=== PATIENT | female | born 1945 | race Caucasian/White ===

== ENCOUNTER 2022-03-25 12:43 | Outpatient (RCR) | payer MEDICARE, OTHER, SELFPAY | END 2022-03-27 12:22 | disposition home or self-care (01) | LOC: HO.WCC 12:43 | PROVIDERS: PCP Internal Medicine; Visit Provider Physician Assistant | DX: S81.812D Laceration without foreign body, left lower leg, subsequent encounter (principal); R60.9 Edema, unspecified | CPT/HCPCS: 99213 ==

== ENCOUNTER 2025-02-28 09:27 | Outpatient (AMB) | payer MEDICARE, OTHER, SELFPAY ==
--- OUTSIDE RECORDS SUMMARY | 2025-02-28 10:12 | XMS_ITS | Encounter Summary ---
Author Organization [facility] Address [address] [place] [address] Phone Care Team Providers Care Hr Coordinator Name Role Phone Nir Neil MD Unavailable [email or web address] Maritza Gonzalez MD Unavailable [phone] Hollie Hood SHAGGER Unavailable [phone] Emerita Hsu MD Unavailable Azalea Degroot MD Primary Care Provider [phone] Encounter Details Date Type Department Care Team (Late st Contact Info) Description 02/05/2021 Ancillary Orders Virtual Department [address] [place] [address] Azalea Degroot MD [address] [place], [place] [id number] Breast screening Social History Tobacco Use Types Packs/Day Years Used Date Smoking Tobacco: Never Smokeless Tobacco: Never Alcohol Use Standard Drinks/Week Comments Yes 1 (1 standard drink = 0.6 oz pur e alcohol) Comments No Sex and Gender Information Value Date Recorded Sex Assigned at Female 03/30/2018 9:37 AM EDT Legal Sex Female 10:07 PM EDT Gender Identity Female 03/30/2018 9:37 AM EDT Sexual Orientation Straight 03/30/2018 9: 37 AM EDT 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 In the absence of a worrisome palpable abnormality, annual screening mammography is recommended. BI-RADS CATEGORY: 1 - Negative. DENSITY: There are scattered fibroglandular densities. Narrative 04/30/2021 10:32 AM EDT COMPARISON: 03/16/2015 through 04/24/2020 Bilateral 3-D tomosynthesis with 2-D reconstructions in the CC and MLO projection. Computer-aided detection system was utilized. No new mass, asymmetry, architectural distortion or suspicious calcifications have become apparent on either side. Procedure Note Hakeem Thompson MD - 04/30/2021 COMPARISON: 03/16/2015 through 04/24/2020 Bilateral 3-D tomosynthesis with 2-D reconstructions in the CC and MLOprojection. Computer-aided detection system was utilized. No new mass, asymmetry, architectural distortion or suspiciouscalcifications have become apparent on either side. IMPRESSION: No findings suspicious for malignancy are identified. In the absence of aworrisome palpable abnormality, annual screening mammography isrecommended. BI-RADS CATEGORY: 1 - Negative. DENSITY: There are scattered fibroglandular densities. Azalea Degroot MD IMG MG EXAMS Final Res ult documented in this encounter Visit Diagnoses Diagnosis Breast screening Breast screening, unspecified Breast screening Breast screening, unspecified documented in this encounter Care Teams Hr Coordinator Relationship Specialty Start Date End Date Azalea Degroot MD [address] [place] [address] PCP - General Internal Medicine 03/04/18 Nir Neil MD [email or web address] Historical LMR Provider 04/22/17 Maritza Gonzalez MD [address] [facility], 2nd [place] [address] [email or web address] Historical LMR Provider 04/22/17 Hollie Hood NP [address] [place] [address] Historical LMR Provider 04/22/17 2 Emerita Hsu MD [address] [place] [address] [place] [phone] [email or web address] Historical LMR Provider 04/22/17 2 documented as of this encounter Additional Source Comments The information contained in this document represents components of the legal health record. It is not the complete legal health record.[facility]
== END 2025-02-28 11:53 | disposition home or self-care (01) ==
LOC: HO.HMGAL 09:27
PROVIDERS: PCP Internal Medicine; Visit Provider Registered Nurse Emergency
DX: J30.89 Other allergic rhinitis (principal)
CPT/HCPCS: 95117; 95165

== ENCOUNTER 2025-03-09 10:29 | Outpatient (AMB) | payer MEDICARE, OTHER, SELFPAY ==
--- OUTSIDE RECORDS SUMMARY | 2025-03-09 12:16 | XMS_ITS | Encounter Summary ---
Author Organization [facility] Address [address] [place] [address] [place] [address] Phone Care Team Providers Care Patent Engineer Name Role Phone Nir Neil MD Unavailable [email or web address] Azalea Degroot MD Primary Care Provider [phone] Encounter Details Date Type Department Care Team (Late st Contact Info) Description 08/23/2024 Procedure Pass [address] [place] [address] Social History Tobacco Use Types Packs/Day Years Used Date Smoking Tobacco: Never Passive Smoke Exposure: Never Smokeless Tobacco: Never Alcohol Use Standard Drinks/Week Comments Yes 1 (1 standard drink = 0.6 oz pur e alcohol) occasionally 1-2x/wk Education Answer Date Recorded Are you interested in more education? Not on murali e 11/01/2022 Are you concerned about learning? Not on file 11/01/2022 No 11/01/2022 No 11/01/2022 Digital Access Answer Date Recorded No 11/30/2022 No 11/30/2022 Reliable internet access at home? Not on file 11/30/2022 Device with a working camera? Not on file Intimate Partner Violence Answer Date R ecorded Are you denied basic needs s uch as food, clothing, or medical care? No 11/04/2023 In the past 12 months have y ou been in a relationship with a person who hurts, threatens, or tries to control you? No 11/04/2023 Are you denied basic needs s uch as food, clothing, or medical care? No 11/04/2023 In the past 12 months have y ou been in a relationship with a person who hurts, threatens, or tries to control you? No 11/04/2023 Comments No Sex and Gender Information Value [...] on file documented as of this encounter Visit Diagnoses Not on filedocumented in this encounter Care Teams Patent Engineer Relationship Specialty Start Date End Date Azalea Degroot MD [address] [place], [place] [id number] PCP - General Internal Medicine 03/04/18 Nri Neil MD [email or web address] Historical LMR Provider 04/22/17 documented as of this encounter Additional Source Comments The information contained in this document represents components of the legal health record. It is not the complete legal health record.[facility]
--- OUTSIDE RECORDS SUMMARY | 2025-03-09 12:16 | XMS_ITS | Encounter Summary ---
Author Organization [facility] Address [address] [place] [address] Phone Care Team Providers Care Inside Horticultural Specialty Grower Name Role Phone Nir Neil MD Unavailable [email or web address] Maritza Gonzalez MD Unavailable [phone] Hollie Hood STRATEGY INTERN Unavailable [phone] Emerita Hsu MD Unavailable Azalea Degroot MD Primary Care Provider [phone] Encounter Details Date Type Department Care Team (Latest Contact Info) Description 09/14/2019 Ancillary Orders [facility] [address] [place] [address] Mariam Stephen PA-C [address] [place] [address] Orthopedics & Sports Medicine, [facility] [address] [email or web address] Closed displaced supracondylar fracture of distal end of left femur with intracondylar extension, initial encounter Social History Tobacco Use Types Packs/Day Years [...] documented as of this encounter Results * XR KNEE 1-2 VIEWS (LEFT) (09/14/2019 9:41 AM EDT) Narrative SYSTEMGENERATED, DOCUMENTATION - 09/14/2019 9:42 AM EDT This image report has been auto-finalized and has not been read by a Radiologist. Interpretation has been included in the provider encounter note for this date of service. Mariam Stephen PA-C IMG XR LOWER EXTREMI TY Final Result documented in this encounter Visit Diagnoses Diagnosis Closed displaced supracondylar fracture of distal end of left femur with intracondylar extension, initial encounter Closed displaced supracondylar fracture of distal end of left femur with intracondylar extension, initial encounter documented in this encounter Care Teams Inside Horticultural Specialty Grower Relationship Specialty Start Date End Date Azalea Degroot MD [address] [place] [address] PCP - General Internal Medicine 03/04/18 Nir Neil MD [email or web address] Historical LMR Provider 04/22/17 Maritza Gonzalez MD [address] [place] [address], 2nd [place] [address] [email or web address] Historical LMR Provider 04/22/17 Hollie Hood NP 30 [place] [address] Historical LMR Provider 04/22/17 2 Emerita Hsu MD [address] [place] [address] [address] [place] [phone] [email or web address] Historical LMR Provider 04/22/17 2 documented as of this encounter Additional Source Comments The information contained in this document represents components of the legal health record. It is not the complete legal health record.[facility]
--- OUTSIDE RECORDS SUMMARY | 2025-03-09 12:16 | XMS_ITS | Encounter Summary ---
Author Organization [facility] Address [address] [place] [address] Phone Care Team Providers Care High Lead Yarder Name Role Phone Nir Neil MD Unavailable [email or web address] Maritza Gonzalez MD Unavailable [phone] Hollie Hood NP Unavailable [phone] Emerita Hsu MD Unavailable Emerita Hsu MD Primary Care Provider [phone] Azalea Degroot MD Primary Care Provider [phone] Encounter Details Date Type Department Care Team (Late st Contact Info) Description 10/17/2017 Ancillary Orders Virtual Department 30 [place] [address] Emerita Hsu MD [address] [facility] [address] [place] [phone] [email or web address] Breast screening Social History Tobacco Use Types Packs/Day Years Used Date Smoking Tobacco: Never Smokeless Tobacco: Never Alcohol Use Standard Drinks/Week Comments Yes 1 (1 standard drink = 0.6 oz pur e alcohol) 5 nights weekly Comments Unknown Sex and Gender Information Value Date Recorded Sex Assigned at Female 03/30/2018 9:37 AM EDT Legal Sex Female 10:07 PM EDT Gender Identity Female 03/30/2018 9:37 AM EDT Sexual Orientation Straight 03/30/2018 9: 37 AM EDT documented as of this encounter Plan of Treatment Not on file documented as of this encounter Results * BI MAMMOGRAM SCREENING WITH TOMOSYNTHESIS WITH CAD (BILATERAL) (04/16/2018 9:38 AM EDT) Anatomical Region Laterality Modality Breast Left, Breast Right, Breast Bilateral Bila teral Mammography 04/17/2018 2:39 PM EDT Impressions 04/17/2018 2:43 PM EDT No mammographic change indicative of malignancy. Routine screening is recommended. BI-RADS CATEGORY: 1 - Negative. DENSITY: There are scattered fibroglandular densities. POS - [id number] Narrative 04/17/2018 2:43 PM EDT FINDINGS: Bilateral full-field digital screening mammography is obtained and read in conjunction with computer-aided detection. 3-D tomosynthesis as well as 2-D C view imaging is also performed. Comparison includes the most recent exam from 04/15/2017 and as far back as 01/22/2012. Breasts are composed of scattered fibroglandular tissue. No new suspicious mass, suspicious microcalcifications, architectural distortion, focal skin thickening, or new asymmetry is detected. Procedure Note Danae Berkowitz MD - 04/17/2018 FINDINGS: Bilateral full-field digital screening mammography is obtained and read inconjunction with computer-aided detection. 3-D tomosynthesis as well as2-D C view imaging is also performed. Comparison includes the most recentexam from 04/15/2017 and as far back as 01/22/2012. Breasts are composed of scattered fibroglandular tissue. No newsuspicious mass, suspicious microcalcifications, architectural distortion,focal skin thickening, or new asymmetry is detected. IMPRESSION: No mammographic change indicative of malignancy. Routine screening isrecommended. BI-RADS CATEGORY: 1 - Negative. DENSITY: There are scattered fibroglandular densities. POS - [id number] Emerita Hsu MD IMG MG EXAMS Final Result documented in this encounter Visit Diagnoses Diagnosis Breast screening Breast screening, unspecified Breast screening Breast screening, unspecified documented in this encounter Care Teams High Lead Yarder Relationship Specialty Start Date End Date Emerita Hsu MD [address] [facility] [address] [phone] [email or web address] PCP - General Family Medicine 05/27/17 03/03/18 Azalea Degroot MD [address] [place] [address] PCP - General Internal Medicine 03/04/18 Nir Neil MD [email or web address] Historical LMR Provider 04/22/17 Maritza Gonzalez MD [address] [place] [address] [email or web address] Historical LMR Provider 04/22/17 Hollie Hood NP [address] [place] [address] Historical LMR Provider 04/22/17 2 Emerita Hsu MD [address] [place] [address] [address] [phone] [email or web address] Historical LMR Provider 04/22/17 2 documented as of this encounter Additional Source Comments The information contained in this document represents components of the legal health record. It is not the complete legal health record.[facility]
--- OUTSIDE RECORDS SUMMARY | 2025-03-09 12:16 | XMS_ITS | Encounter Summary ---
Author Organization [facility] Address [address] [place] [address] Phone Care Team Providers Care Health Plan Manager Name Role Phone Nir Neil MD Unavailable [email or web address] Azalea Degroot MD Primary Care Provider [phone] Encounter Details Date Type Department Care Team (Latest Contact Info) Description 08/06/2021 Ancillary Orders [address] [address] Gabrielle Preciado MD [address] [place] [address] Orthopedics & Sports Medicine, [place] [address] [email or web address] Osteoarthritis of right hip, unspecified osteoarthritis type Social History Tobacco Use Types Packs/Day Years [...] as of this encounter Plan of Treatment Pending Results Name Type Priority Associated Diagnoses Date /Time FL Guidance Needle Placement Non-Spine Imaging Routine Osteoarthritis of right hip, unspecified osteoarthritis type 08/07/2021 8:52 AM EST Scheduled Orders Name Type Priority Associated Diagnoses Orde r Schedule FL Guidance Needle Placement Non-Spine Imaging Routine Osteoarthritis of right hip, unspecified osteoarthritis type 1 Occurrences starting 08/06/2021 until 11/03/2021 documented as of this encounter Visit Diagnoses Diagnosis Osteoarthritis of right hip, unspecified osteoarthritis type documented in this encounter Care Teams Health Plan Manager Relationship Specialty Start Date End Date Azalea Degroot MD [address] [place] [address] PCP - General Internal Medicine 03/04/18 Nir Neil MD [email or web address] Historical LMR Provider 04/22/17 documented as of this encounter Additional Source Comments The information contained in this document represents components of the legal health record. It is not the complete legal health record.[facility]
--- OUTSIDE RECORDS SUMMARY | 2025-03-09 12:16 | XMS_ITS | Encounter Summary ---
Author Organization [facility] Address [address] [facility] [address] [place] [address] Phone Care Team Providers Care Tire Curer Name Role Phone Nir Neil MD Unavailable [email or web address] Azalea Degroot MD Primary Care Provider [phone] Encounter Details Date Type Department Care Team (Late st Contact Info) Description 10/02/2021 Procedure Pass [facility], [address] [address] Social History Tobacco Use Types Packs/Day Years [...] on filedocumented in this encounter Care Teams Tire Curer Relationship Specialty Start Date End Date Azalea Degroot MD [address] [place] [address] PCP - General Internal Medicine 03/04/18 Nir Neil MD [email or web address] Historical LMR Provider 04/22/17 documented as of this encounter Additional Source Comments The information contained in this document represents components of the legal health record. It is not the complete legal health record.[facility]
--- OUTSIDE RECORDS SUMMARY | 2025-03-09 12:16 | XMS_ITS | Encounter Summary ---
Author Organization [facility] Address [address] [facility] [address] [place] [address] Phone Care Team Providers Care Pantograph Engraver Name Role Phone Nir Neil MD Unavailable [email or web address] Maritza Gonzalez MD Unavailable [phone] Hollie Hood REPRODUCTION MACHINE LOADER Unavailable [phone] Emerita Hsu MD Unavailable Azalea Degroot MD Primary Care Provider [phone] Encounter Details Date Type Department Care Team (Late st Contact Info) Description 01/25/2019 Ancillary Orders Virtual Department 30 [place] [address] Azalea Degroot MD 46 [place], [place] [phone] Breast screening Social History Tobacco Use Types Packs/Day Years Used Date Smoking Tobacco: Never Smokeless Tobacco: Never Alcohol Use Standard Drinks/Week Comments Yes 1 (1 standard drink = 0.6 oz pur e alcohol) 5 nights weekly Comments No Sex and Gender Information Value [...] MAMMOGRAM SCREENING WITH TOMOSYNTHESIS WITH CAD (BILATERAL) (04/20/2019 10:38 AM EDT) Anatomical Region Laterality Modality Breast Left, Breast Right, Breast Bilateral Bila teral Mammography 04/20/2019 11:0 2 AM EDT Impressions 04/20/2019 11:05 AM EDT BILATERAL BREASTS: Negative, no evidence of malignancy. Normal interval follow- up is recommended in 12 months. Bi-RADS: BI-RADS CATEGORY: 1 - Negative. DENSITY: There are scattered fibroglandular densities. POS - [id number] Narrative 04/20/2019 11:05 AM EDT STUDY: Bilateral screening mammography with tomosynthesis and CAD TECHNIQUE: Bilateral full-field digital screening mammography is obtained and read in conjunction with computer-aided detection. Tomosynthesis as well as 2-D C view imaging were obtained. COMPARISON: Comparison made to multiple prior, most recent April 16, 2018, and most remote February 18, 2013. BREAST COMPOSITION: There are scattered areas of fibroglandular density BILATERAL BREASTS: No significant masses, calcifications or other abnormalities are seen. Procedure Note Teresa Chandra MD - 04/20/2019 STUDY: Bilateral screening mammography with tomosynthesis and CAD TECHNIQUE: Bilateral full-field digital screening mammography is obtainedand read in conjunction with computer-aided detection. Tomosynthesis aswell as 2-D C view imaging were obtained. COMPARISON: Comparison made to multiple prior, most recent April, and most remote February 18, 2013. BREAST COMPOSITION: There are scattered areas of fibroglandulardensity BILATERAL BREASTS: No significant masses, calcifications or otherabnormalities are seen. IMPRESSION: BILATERAL BREASTS: Negative, no evidence of malignancy. Normal intervalfollow-up is recommended in 12 months. Bi-RADS: BI-RADS CATEGORY: 1 - Negative. DENSITY: There are scattered fibroglandular densities. POS - [id number] Azalea Degroot MD IMG MG EXAMS Final Res ult documented in this encounter Visit Diagnoses Diagnosis Breast screening Breast screening, unspecified Breast screening Breast screening, unspecified documented in this encounter Care Teams Pantograph Engraver Relationship Specialty Start Date End Date Azalea Degroot MD 46 [place] [address] PCP - General Internal Medicine 03/04/18 Nir Neil MD [email or web address] Historical LMR Provider 04/22/17 Maritza Gonzalez MD [address] [address] [email or web address] Historical LMR Provider 04/22/17 Hollie Hood NP [address] [place] [address] Historical LMR Provider 04/22/17 2 Emerita Hsu MD [address] [place] [address] [phone] [email or web address] Historical LMR Provider 04/22/17 2 documented as of this encounter Additional Source Comments The information contained in this document represents components of the legal health record. It is not the complete legal health record.[facility]
--- OUTSIDE RECORDS SUMMARY | 2025-03-09 12:16 | XMS_ITS | Encounter Summary ---
Author Organization [facility] Address [address] [place] [address] [place] [address] Phone Care Team Providers Care Napper Runner Name Role Phone Nir Neil MD Unavailable [email or web address] Azalea Degroot MD Primary Care Provider [phone] Encounter Details Date Type Department Care Team (Late st Contact Info) Description 09/11/2023 Procedure Pass [facility], [facility] [address] [place] [address] Social History Tobacco Use Types Packs/Day Years [...] with a working camera? Not on file Comments No Sex and Gender Information Value [...] on filedocumented in this encounter Care Teams Napper Runner Relationship Specialty Start Date End Date Azalea Degroot MD [address] [place] [address] PCP - General Internal Medicine 03/04/18 Nir Neil MD [email or web address] Historical LMR Provider 04/22/17 documented as of this encounter Additional Source Comments The information contained in this document represents components of the legal health record. It is not the complete legal health record.[facility]
--- OUTSIDE RECORDS SUMMARY | 2025-03-09 12:16 | XMS_ITS | Encounter Summary ---
Author Organization [facility] Address [address] [place] [address] Phone Care Team Providers Care Senior Control Systems Engineer Name Role Phone Nir Neil MD Unavailable [email or web address] Maritza Gonzalez MD Unavailable [phone] Hollie Hood OIL EXPELLER Unavailable [phone] Emerita Hsu MD Unavailable Azalea Degroot MD Primary Care Provider [phone] Encounter Details Date Type Department Care Team (Late st Contact Info) Description 09/26/2020 Procedure Pass [facility], [address] [address] Social History Tobacco Use Types Packs/Day Years [...] on filedocumented in this encounter Care Teams Senior Control Systems Engineer Relationship Specialty Start Date End Date Azalea Degroot MD [address] [place] [address] PCP - General Internal Medicine 03/04/18 Nir Neil MD [email or web address] Historical LMR Provider 04/22/17 Maritza Gonzalez MD [address] [address] [email or web address] Historical LMR Provider 04/22/17 Hollie Hood NP 30 [place] [address] Historical LMR Provider 04/22/17 2 Emerita Hsu MD [address] [place] [address] [address] [email or web address] Historical LMR Provider 04/22/17 2 documented as of this encounter Additional Source Comments The information contained in this document represents components of the legal health record. It is not the complete legal health record.[facility]
--- OUTSIDE RECORDS SUMMARY | 2025-03-09 12:16 | XMS_ITS | Encounter Summary ---
Author Organization [facility] Address [address] [place] [address] Phone Care Team Providers Care Clinical Laboratory Aide Name Role Phone Nir Neil MD Unavailable [email or web address] Azalea Degroot MD Primary Care Provider [phone] Reason for Referral * MRI/CAT Scan - Closed Specialty Diagnoses / Procedures Referred By Princess calloway Referred To Contact Radiology Diagnoses Right hip pain Procedures MRI Hip (Right) Isabel Rico NP [address] [place] [address] Phone: tel: fax: mailto:[email or web address] Referral ID Status Reason Start Date Expiration Date Visits Re quested Visits Authorized [id number] Closed 10/02/2021 10/02/2022 1 1 Encounter Details Date Type Department Care Team (Latest Contact Info) Description 10/02/2021 Transcribe Orders Virtual Department [address] [place] [address] Isabel Rico NP [address] [place] [phone] [email or web address] Right hip pain (Primary Dx) Social History Tobacco Use Types Packs/Day Years [...] documented as of this encounter Results * MRI HIP WITHOUT CONTRAST (RIGHT) (10/17/2021 7:48 AM EDT) Anatomical Region Laterality Modality Hip Right Magnetic Resonan ce 10/17/2021 11:2 4 AM EDT Impressions 10/17/2021 12:06 PM EDT 1.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 Relatively large area of heterogeneous bone marrow edema of the proximal right femur could be secondary to a combination of avascular necrosis and nondisplaced fractures. 2.Moderate right joint effusion filled with heterogeneous content could be posttraumatic. 3.Areas of fluid collections within the iliopsoas muscle is most likely posttraumatic. 4.Moderate size area of muscular edema as above, most likely posttraumatic. 5.Moderate degenerative changes of the right hip joint. Narrative 10/17/2021 12:06 PM EDT MRI HIP WITHOUT CONTRAST (RIGHT) TECHNIQUE: Multi-sequence, multi-planar MRI of the hip without intravenous contrast. COMPARISON: Radiographs of the right hip on June 21, 2021 FINDINGS: ENTIRE PELVIS SCREENING: No fracture, sacroiliitis, or focal bone lesion. No intrapelvic soft tissue abnormality. DEDICATED HIP: Bone: There are findings suggestive of avascular necrosis of the superior aspect of the femoral head surrounded by a relatively large area of heterogeneous bone marrow edema that extends towards the neck and intertrochanteric femur. Possible linear T1 hypointensities in the femoral neck could suggest nondisplaced fracture lines. Joint: Marked joint space narrowing with diffuse cartilage thinning. Moderate joint effusion filled with heterogeneous content. Tendons: There is heterogeneous septated fluid collections extending from the myotendinous junction of the iliac and psoas muscles and continuing along the tendon inferiorly (3:15-7). Difficult to measure the entire length, but about 6 cm long.Moderate size area of edema involving the iliac, psoas, adductor, gluteus minimus and vastus lateralis muscles. The tendons of the pelvic muscles appear intact, but tendinitis not excluded. Hamstring tendons are intact. Soft Tissues: No bursal collection. Procedure Note Teresa Chandra MD - 10/17/2021 MRI HIP WITHOUT CONTRAST (RIGHT) TECHNIQUE: Multi-sequence, multi-planar MRI of the hip without intravenouscontrast. COMPARISON: Radiographs of the right hip on June 21, 2021 FINDINGS: ENTIRE PELVIS SCREENING: No fracture, sacroiliitis, or focal bone lesion.No intrapelvic soft tissue abnormality. DEDICATED HIP: Bone: There are findings suggestive of avascular necrosis of the superioraspect of the femoral head surrounded by a relatively large area ofheterogeneous bone marrow edema that extends towards the neck andintertrochanteric femur. Possible linear T1 hypointensities in the femoralneck could suggest nondisplaced fracture lines. Joint: Marked joint space narrowing with diffuse cartilage thinning.Moderate joint effusion filled with heterogeneous content. Tendons: There is heterogeneous septated fluid collections extending fromthe myotendinous junction of the iliac and psoas muscles and continuingalong the tendon inferiorly (3:15-7). Difficult to measure the entirelength, but about 6 cm long.Moderate size area of edema involving theiliac, psoas, adductor, gluteus minimus and vastus lateralis muscles. Thetendons of the pelvic muscles appear intact, but tendinitis not excluded.Hamstring tendons are intact. Soft Tissues: No bursal collection. 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 2.Moderate right joint effusion filled with heterogeneous content could beposttraumatic. 3.Areas of fluid collections within the iliopsoas muscle is most likelyposttraumatic. 4.Moderate size area of muscular edema as above, most likelyposttraumatic. 5.Moderate degenerative changes of the right hip joint. Isabel Rico NP IMG MR EXTREMITY Final Result documented in this encounter Visit Diagnoses Diagnosis Right hip pain- Primary Pain in joint, pelvic region and thigh Right hip pain Pain in joint, pelvic region and thigh documented in this encounter Care Teams Clinical Laboratory Aide Relationship Specialty Start Date End Date Azalea Degroot MD [address] [place], [place] [id number] PCP - General Internal Medicine 03/04/18 Nir Neil MD [email or web address] Historical LMR Provider 04/22/17 documented as of this encounter Additional Source Comments The information contained in this document represents components of the legal health record. It is not the complete legal health record.[facility]
--- OUTSIDE RECORDS SUMMARY | 2025-03-09 12:16 | XMS_ITS | Encounter Summary ---
Author Organization [facility] Address [address] [facility] [address] [place] [address] Phone Care Team Providers Care Fitter Mechanic Name Role Phone Nir Neil MD Unavailable [email or web address] Azalea Degroot MD Primary Care Provider [phone] Encounter Details Date Type Department Care Team (Late st Contact Info) Description 04/15/2023 Procedure Pass [facility], Ct Scan - [facility] [address] [place] [address] Social History Tobacco Use Types Packs/Day Years Used Date Smoking Tobacco: Never Smokeless Tobacco: Never Alcohol Use Standard Drinks/Week Comments Not Currently 1 (1 standard drink = 0.6 oz [...] murali e documented as of this encounter Functional Status * Calculated C-SSRS Risk Score (Lifetime/Recent) Answer Date of Assessment Author No Risk Indicated 04/15/2023 10:24 AM EDT Mirtha Burks RN * [place] Suicide Severity Rating Scale (Screener/Recent Self-Report) Question Answer Date of Assessment Author 1. Wish to be (Past 1 Month) No 04/15/2023 10:24 AM Edilma Lobato RN 2. Non-Specific Active Suicidal Thoughts (Past 1 Month) No 04/15/2023 10:24 AM Edilma Lobato RN 6. Suicidal Behavior (Lifetime) No 04/15/2023 10:24 AM Edilma Lobato RN documented as of this encounter Plan of Treatment Not on file documented as of this encounter Visit Diagnoses Not on filedocumented in this encounter Care Teams Fitter Mechanic Relationship Specialty Start Date End Date Azalea Degroot MD [address] [place] [address] PCP - General Internal Medicine 03/04/18 Nir Neil MD [email or web address] Historical LMR Provider 04/22/17 documented as of this encounter Additional Source Comments The information contained in this document represents components of the legal health record. It is not the complete legal health record.[facility]
--- OUTSIDE RECORDS SUMMARY | 2025-03-09 12:16 | XMS_ITS | Encounter Summary ---
Author Organization [facility] Address [address] [address] Phone Care Team Providers Care Photography Intern Name Role Phone Nir Neil MD Unavailable [email or web address] Azalea Degroot MD Primary Care Provider [phone] Encounter Details Date Type Department Care Team (Latest Contact Info) Description 08/23/2024 Transcribe Orders Virtual Department [address] [place] [address] Azalea Degroot MD [address] [place] [address] Breast screening (Primary Dx) Social History Tobacco Use Types [...] MAMMOGRAM SCREENING WITH TOMOSYNTHESIS WITH CAD (BILATERAL) (01/06/2025 9:23 AM EDT) Anatomical Region Laterality Modality Breast Left, Breast Right, Breast Bilateral Bila teral Mammography 01/08/2025 8:04 AM EDT Impressions 01/08/2025 8:06 AM EDT No mammographic evidence of malignancy in either breast. Annual screening mammography is recommended. BI-RADS 1 NEGATIVE The patient will be notified of the results and recommendations. Narrative 01/08/2025 8:06 AM EDT BI MAMMOGRAM SCREENING WITH TOMOSYNTHESIS WITH CAD (BILATERAL) Additional patient information: Screening. COMPARISON: Comparison is made with relevant prior imaging. Breast composition: There are scattered areas of fibroglandular density. FINDINGS: No abnormal masses, suspicious calcifications, or other significant findings are identified mammographically in either breast. Procedure Note Nicole Art MD - 01/08/2025 BI MAMMOGRAM SCREENING WITH TOMOSYNTHESIS WITH CAD (BILATERAL) Additional patient information: Screening. COMPARISON: Comparison is made with relevant prior imaging. Breast composition: There are scattered areas of fibroglandular density. FINDINGS: No abnormal masses, suspicious calcifications, or other significantfindings are identified mammographically in either breast. IMPRESSION: No mammographic evidence of malignancy in either breast. Annual screening mammography is recommended. BI-RADS 1 NEGATIVE The patient will be notified of the results and recommendations. Azalea Degroot MD IMG MG EXAMS Final Res ult documented in this encounter Visit Diagnoses Diagnosis Breast screening- Primary Breast screening, unspecified Breast screening Breast screening, unspecified documented in this encounter Care Teams Photography Intern Relationship Specialty Start Date End Date Azalea Degroot MD [address] [place] [address] PCP - General Internal Medicine 03/04/18 Nir Neil MD [email or web address] Historical LMR Provider 04/22/17 documented as of this encounter Additional Source Comments The information contained in this document represents components of the legal health record. It is not the complete legal health record.[facility]
--- OUTSIDE RECORDS SUMMARY | 2025-03-09 12:16 | XMS_ITS | Encounter Summary ---
Author Organization [facility] Address [address] [place] [address] Phone Care Team Providers Care Tool Room Attendant Name Role Phone Nir Neil MD Unavailable [email or web address] Azalea Dergoot MD Primary Care Provider [phone] Encounter Details Date Type Department Care Team (Latest Contact Info) Description 09/02/2024 Ancillary Orders [facility] [address] [place] [address] Gabrielle Preciado MD [address] [place] [address] Orthopedics & Sports Medicine, [facility] [place] [address] [email or web address] Calcific tendinitis of left shoulder (Primary Dx); Rotator cuff impingement syndrome of right shoulder Social History Tobacco Use Types Packs/Day Years [...] as of this encounter Results * XR Shoulder (Left) (09/02/2024 8:53 AM EST) Anatomical Region Laterality Modality Shoulder Left Computed Radiogr aphy Narrative 09/02/2024 8:54 AM EST This image report has been auto-finalized and has not been read by a Radiologist. Interpretation has been included in the provider encounter note for this date of service. us Gabrielle Preciado MD IMG XR UPPER EXTREMITY Ed ited Result - Final documented in this encounter Visit Diagnoses Diagnosis Rotator cuff impingement syndrome of right shoulder Calcific tendinitis of left shoulder- Primary Rotator cuff impingement syndrome of right shoulder documented in this encounter Care Teams Tool Room Attendant Relationship Specialty Start Date End Date Azalea Degroot MD [address] [place] [address] PCP - General Internal Medicine 03/04/18 Nir Neil MD [email or web address] Historical LMR Provider 04/22/17 documented as of this encounter Additional Source Comments The information contained in this document represents components of the legal health record. It is not the complete legal health record.[facility]
--- OUTSIDE RECORDS SUMMARY | 2025-03-09 12:16 | XMS_ITS | Encounter Summary ---
Author Organization [facility] Address [address] [place] [address] [place] [address] Phone Care Team Providers Care Speech Therapist Early Intervention Name Role Phone Nir Neil MD Unavailable [email or web address] Azalea Degroot MD Primary Care Provider [phone] Encounter Details Date Type Department Care Team (Late st Contact Info) Description 11/05/2023 Procedure Pass [facility] Endoscopy Admitting Dept Virtual Department [address] [place] [address] Social History Tobacco Use Types Packs/Day Years [...] on filedocumented in this encounter Care Teams Speech Therapist Early Intervention Relationship Specialty Start Date End Date Azalea Degroot MD [address] [place], [place] [id number] PCP - General Internal Medicine 03/04/18 Nir Neil MD [email or web address] Historical LMR Provider 04/22/17 documented as of this encounter Additional Source Comments The information contained in this document represents components of the legal health record. It is not the complete legal health record.[facility]
--- OUTSIDE RECORDS SUMMARY | 2025-03-09 12:16 | XMS_ITS | Encounter Summary ---
Author Organization [facility] Address [address] [place] [address] Phone Care Team Providers Care Human Resources Operations Specialist Name Role Phone Nir Neil MD Unavailable [email or web address] Azalea Degroot MD Primary Care Provider [phone] Encounter Details Date Type Department Care Team (Late st Contact Info) Description 08/06/2021 Ancillary Orders [facility] Orth[facility]ics & Sports Medicine [address] [place] [address] Gabrielle Preciado MD [address] [place] [address] Orthopedics & Sports Medicine, [facility] [place] [address] [email or web address] Social History Tobacco Use Types Packs/Day Years [...] on filedocumented in this encounter Care Teams Human Resources Operations Specialist Relationship Specialty Start Date End Date Azalea Degroot MD [address] [place] [address] PCP - General Internal Medicine 03/04/18 Nir Neil MD [email or web address] Historical LMR Provider 04/22/17 documented as of this encounter Additional Source Comments The information contained in this document represents components of the legal health record. It is not the complete legal health record.[facility]
--- OUTSIDE RECORDS SUMMARY | 2025-03-09 12:16 | XMS_ITS | Encounter Summary ---
Author Organization [facility] Address [address] [facility] [address] [place] [address] Phone Care Team Providers Care Nail Assembly Machine Operator Name Role Phone Nir Neil MD Unavailable [email or web address] Maritza Gonzalez MD Unavailable [phone] Hollie Hood WINDOW DECORATOR Unavailable [phone] Emerita Hsu MD Unavailable Azalea Degroot MD Primary Care Provider [phone] Encounter Details Date Type Department Care Team (Late st Contact Info) Description 02/05/2021 Ancillary Orders Virtual Department [address] [place] [address] Azalea Degroot MD [address] [place], [place] [phone] Breast screening Social History Tobacco Use Types [...] unspecified documented in this encounter Care Teams Nail Assembly Machine Operator Relationship Specialty Start Date End Date Azalea Degroot MD [address] [place] [address] PCP - General Internal Medicine 03/04/18 Nir Neil MD [email or web address] Historical LMR Provider 04/22/17 Maritza Gonzalez MD [address] [facility], 2nd [place] [address] [email or web address] Historical LMR Provider 04/22/17 Hollie Hood NP [address] [place] [address] Historical LMR Provider 04/22/17 2 Emerita Hsu MD [address] [place] [address] [place] [phone] [email or web address] Historical LMR Provider 04/22/17 2 documented as of this encounter Additional Source Comments The information contained in this document represents components of the legal health record. It is not the complete legal health record.[facility]
--- OUTSIDE RECORDS SUMMARY | 2025-03-09 12:16 | XMS_ITS | Encounter Summary ---
Author Organization [facility] Address [address] [place] [address] Phone Care Team Providers Care Powerhouse Electrician Name Role Phone Nir Neil MD Unavailable [email or web address] Maritza Gonzalez MD Unavailable [phone] Hollie Hood NP Unavailable Emerita Hsu MD Unavailable Azalea Degroot MD Primary Care Provider [phone] Encounter Details Date Type Department Care Team (Late st Contact Info) Description 03/25/2020 Procedure Pass [address] [address] Social History Tobacco Use Types Packs/Day Years [...] on filedocumented in this encounter Care Teams Powerhouse Electrician Relationship Specialty Start Date End Date Azalea Degroot MD [address] [place] [address] PCP - General Internal Medicine 03/04/18 Nir Neil MD [email or web address] Historical LMR Provider 04/22/17 Maritza Gonzalez MD [address] [address] [email or web address] Historical LMR Provider 04/22/17 Hollie Hood NP [address] [place] [address] Historical LMR Provider 04/22/17 2 Emerita Hsu MD [address] [place] [address] [place] [phone] [email or web address] Historical LMR Provider 04/22/17 2 documented as of this encounter Additional Source Comments The information contained in this document represents components of the legal health record. It is not the complete legal health record.[facility]
--- OUTSIDE RECORDS SUMMARY | 2025-03-09 12:16 | XMS_ITS | Encounter Summary ---
Author Organization [facility] Address [address] [place] [address] Phone Care Team Providers Care Crude Tester Name Role Phone Nir Neil MD Unavailable [email or web address] Maritza Gonzalez MD Unavailable [phone] Hollie Hood DIESEL TRUCK DRIVER Unavailable [phone] Emerita Hsu MD Unavailable Azalea Degroot MD Primary Care Provider [phone] Encounter Details Date Type Department Care Team (Late st Contact Info) Description 02/05/2021 Procedure Pass [facility], [address] [address] Social History Tobacco Use Types Packs/Day Years [...] on filedocumented in this encounter Care Teams Crude Tester Relationship Specialty Start Date End Date Azalea Degroot MD [address] [place] [address] PCP - General Internal Medicine 03/04/18 Nir Neil MD [email or web address] Historical LMR Provider 04/22/17 Maritza Gonzalez MD [address] [address] [email or web address] Historical LMR Provider 04/22/17 Hollie Hood NP [address] [place] [address] Historical LMR Provider 04/22/17 2 Emerita Hsu MD [address] [place] [address] [phone] [email or web address] Historical LMR Provider 04/22/17 2 documented as of this encounter Additional Source Comments The information contained in this document represents components of the legal health record. It is not the complete legal health record.[facility]
--- OUTSIDE RECORDS SUMMARY | 2025-03-09 12:17 | XMS_ITS | Encounter Summary ---
Author Organization [facility] Address [address] [facility] [address] [place] [phone] Phone Care Team Providers Care Director Online Marketing Name Role Phone Nir Neil MD Unavailable [email or web address] Maritza Gonzalez MD Unavailable [phone] Hollie Hood ECONOMETRICS PROFESSOR Unavailable [phone] Emerita Hsu MD Unavailable Azalea Degroot MD Primary Care Provider [phone] Encounter Details Date Type Department Care Team (Late st Contact Info) Description 02/28/2020 Ancillary Orders Virtual Department [address] [place] [address] Azalea Degroot MD [address], [place] [id number] Breast screening Social History Tobacco Use Types [...] MAMMOGRAM SCREENING WITH TOMOSYNTHESIS WITH CAD (BILATERAL) (04/24/2020 1:39 PM EDT) Anatomical Region Laterality Modality Breast Left, Breast Right, Breast Bilateral Bila teral Mammography 04/24/2020 2:15 PM EDT Impressions 04/24/2020 2:17 PM EDT No mammographic evidence of malignancy. BI-RADS CATEGORY: 1 - Negative. DENSITY: There are scattered fibroglandular densities. Narrative 04/24/2020 2:17 PM EDT Standard digital full-field 2-D C view and two-plane tomographic imaging was performed and compared with multiple prior studies, most recently 04/20/2019, with utilization of computer-aided detection. The breasts are composed of scattered fibroglandular densities. The stromal markings are essentially unchanged in overall appearance and distribution. No dominant spiculated mass, suspicious clustered microcalcifications, or focal zone of pathologic skin thickening or retraction are noted to have arisen in the interim. Procedure Note Juan Pablo Luong MD - 04/24/2020 Standard digital full-field 2-D C view and two-plane tomographic imagingwas performed and compared with multiple prior studies, most [id number]/15/2019, with utilization of computer-aided detection. The breasts are composed of scattered fibroglandular densities. Thestromal markings are essentially unchanged in overall appearance anddistribution. No dominant spiculated mass, suspicious clusteredmicrocalcifications, or focal zone of pathologic skin thickening orretraction are noted to have arisen in the interim. IMPRESSION: No mammographic evidence of malignancy. BI-RADS CATEGORY: 1 - Negative. DENSITY: There are scattered fibroglandular densities. Azalea Degroot MD IMG MG EXAMS Final Res ult documented in this encounter Visit Diagnoses Diagnosis Breast screening Breast screening, unspecified Breast screening Breast screening, unspecified documented in this encounter Care Teams Director Online Marketing Relationship Specialty Start Date End Date Azalea Degroot MD [address] [place] [address] PCP - General Internal Medicine 03/04/18 Nir Neil MD [email or web address] Historical LMR Provider 04/22/17 Maritza Gonzalez MD [address] [facility], [address] [place] [id number] [email or web address] Historical LMR Provider 04/22/17 Hollie Hood NP [address] [place] [id number] Historical LMR Provider 04/22/17 2 Emerita Hsu MD [address] [place] [address] [id number] [email or web address] Historical LMR Provider 04/22/17 2 documented as of this encounter Additional Source Comments The information contained in this document represents components of the legal health record. It is not the complete legal health record.[facility]
--- OUTSIDE RECORDS SUMMARY | 2025-03-09 12:17 | XMS_ITS | Clinical Summary ---
Author Organization Located Within [facility] Address [address] [place] [id number] Phone Care Team Providers Care Operations Research Engineer Name Role Phone Nir Neil MD Unavailable [email or web address] MD Primary Care Provider [phone] Allergies Active Allergy Reactions Criticality Noted Date Comments Celecoxib Diarrhea,Fatigue Low 10/31/2021 Duloxetine 10/31/2021 Pt could not sleep for 3x nights, lost appetite, made pt anxious, and it did not help with intended use Pollen Extracts 07/09/2021 Sulfa (Sulfonamide Antibiotics) Rash Low 05/27/2017 Medications acyclovir (ZOVIRAX) 400 MG tablet Take 400 mg by mouth 3 (three) times a week. Active TURMERIC, BULK, MISC Active LUTEIN ORAL Take by mouth daily. Active flaxseed oil 1,000 mg Cap Take 2,000 mg by mouth daily. Active cetirizine (ZYRTEC) 10 MG tablet Take 10 mg by mouth as needed. Active multivitamins capsule Take 1 capsule by mouth daily. 0 Active omega 6-fmz-xnt-fish oil 1,000 mg (120 mg-180 mg) Cap Take 1 capsule by mouth daily. 0 Active calcium carbonate-vitami n D3 1,250 mg (500 mg elemental)-400 units per tablet Take 1 tablet by mouth daily. Active traMADoL (ULTRAM) 50 mg tabletIndication s:Spinal enthesopathy of lumbar region TAKE 1 TABLET (50 MG TOTAL) BY MOUTH 3 (THREE) TIMES A DAY NEEDED. 84 tablet 1 Active gabapentin (NEURONTIN) 300 MG capsule Take 1 capsule (300 mg total) by mouth nightly at bedtime as needed. 10 capsule 2 Active multivit with minerals/lutein (MULTIVITAMIN 50 PLUS ORAL) Daily, 0 Refills, Maintenance, 07/16/22 9:33:00 EST, Partial fill upon patient request if the prescription is for a schedule II opioid drug. 3 Active estradioL (ESTRACE) 0.01 % (0.1 mg/gram) vaginal cream See Instructions, Apply marble sized amount to urethral meatus twice weekly., # 42.5 Gm, 1 Refills, Maintenance, 12/27/22 11:23:00 EDT, [id number], Partial fill upon patient request if the prescription is for a schedule II opioid drug., 168, c... 3 Active Medication-Free Text CANNABIS GUMMIES, Refills 0, Maintenance, 03/31/23 12:09:00 EDT, Supply 3 Active metoprolol succinate (TOPROL-XL) 25 MG 24 hr tablet Take 25 mg by mouth daily. Active flunisolide 25 mcg (0.025 %) [place] 2 sprays by Each Nare route every 8 (eight) hours. 25 mL 4 Active Additional Information Patient not taking.Reported on 11/25/2023 amoxicillin (AMOXIL) 500 MG tablet 4 TABS BY MOUTH 1 HOUR PRIOR TO INJECTION 4 Active neomycin-polymyx in B-dexAMETHasone (MAXITROL) 3.5 mg/g-10,000 unit/g-0.1 % Oint PLEASE SEE ATTACHED FOR DETAILED DIRECTIONS 4 Active levothyroxine (SYNTHROID, LEVOTHROID) 100 MCG tablet Take 1 tablet by mouth every morning. 4 Active metoprolol succinate (TOPROL-XL) 25 MG 24 hr tablet Take 25 mg by mouth. 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 Left knee pain 01/19/2020 Muscle cramps 04/21/2019 Assessment & Plan (04/21/2019 10:45 AM EDT): Advised good oral hydration and magnesium supplements in small amounts as larger amounts gave her diarrhea. Family history of breast cancer 03/22/2019 Overview (03/22/2019): Maternal aunts X 2 breast cancer age 60s (Mother ovarian cancer age 75) Pt is BrCa negative Assessment & Plan (03/19/2021 12:00 PM EDT): Joan will continue with annual mammograms. She prefers next clinical exam in two years but will call if opts for annual clinical breast exam given family hx. Sacroiliac joint pain 03/10/2019 Localized osteoarthrosis, an kle and foot, unspecified laterality 10/20/2018 Menopausal vaginal dryness 03/10/2018 Assessment & Plan (03/19/2021 12:01 PM EDT): Joan will continue with effective self care and call with any emerging concerns or bothersome sx. Assessment & Plan (03/22/2019 2:29 PM EDT): We discussed vaginal dryness and suggestions to reduce sx. I encouraged sparing use of unscented mild soap such as Dove sensitive skin, with primary use of water for cleansing. We discussed calling with any vaginal irritation that does not resolve for evaluation. She will also call if ever opts to pursue vaginal estrogen. Assessment & Plan (03/10/2018 2:28 PM EDT): We discussed previous hx of vaginal dryness and use of Estring when sexually active. She does not feel the need to use it now, and will call if opts to restart or has any other concerns. Spinal enthesopathy of lumbar region 07/02/2017 Assessment & Plan (03/05/2021 11:07 AM EDT): Much better after injection therapy and gabapentin in this patient with spinal enthesopathy, multilevel lumbar spondylitic changes on MRI as well as lateral recess stenosis. She will continue low-dose gabapentin. Assessment & Plan (09/26/2020 2:42 PM EDT): X-rays from 2018 of the lumbosacral spine were reviewed indicating moderately advanced facet arthropathy throughout the lumbar spine. No compression fractures or spondylolisthesis. Her symptoms are compatible with referred facet arthropathy or more likely lateral recess stenosis with a high lumbar nerve root radiculopathy. Physical therapy was not all that helpful but the tramadol is. We discussed future plans and I think is appropriate to get an MRI scan at this point as lateral recess stenosis may be amenable to treatment with a fluoroscopically guided epidural injection or facet joint block if appropriate. She agrees with this plan. Tramadol was refilled today. Her most recent laboratory work was reviewed in addition to the lumbar spine x-rays. Of note is sacroiliac x-rays showed no sacroiliitis. No visits with results within 3 Month(s) from this visit. Latest known visit with results is: Admission on 07/30/2018, Discharged on 07/30/2018 Component Date Value Ref Range Status Ventricular Rate EKG/MIN 07/30/2018 91 BPM Final Atrial Rate 07/30/2018 91 BPM Final OK Interval 07/30/2018 124 ms Final QRS Duration 07/30/2018 90 ms Final QT Interval 07/30/2018 344 ms Final QTC Interval 07/30/2018 423 ms Final P [place] 07/30/2018 54 degrees Final R Wave [place] 07/30/2018 57 degrees Final T Wave [place] 07/30/2018 23 degrees Final WBC 07/30/2018 8.61 3.40 - 11.20 K/uL Final RBC 07/30/2018 4.52 3.80 - 4.80 M/uL Final HGB 07/30/2018 13.4 12.0 - 15.0 g/dL Final HCT 07/30/2018 41.4 36.0 - 46.0 % Final PLT 07/30/2018 246 130 - 400 K/uL Final MCV 07/30/2018 91.6 79.0 - 98.0 fL Final MCH 07/30/2018 29.6 27.0 - 34.8 pg Final MCHC 07/30/2018 32.4 31.5 - 36.0 g/dL Final RDW 07/30/2018 13.3 10.8 - 14.6 % Final MPV 07/30/2018 9.5 9.4 - 12.4 fl Final NRBC 07/30/2018 0.00 0.00 /100 WBCs Final ABSOLUTE NRBC 07/30/2018 0.00 0.00 K/uL Final DIFF METHOD 07/30/2018 Auto Final NEUTS 07/30/2018 77.5 45.30 - 77.70 % Final LYMPHS 07/30/2018 11.1* 12.30 - 39.70 % Final MONOS 07/30/2018 9.8 4.10 - 12.80 % Final EOS 07/30/2018 0.9 0 - 7.2 % Final BASOS 07/30/2018 0.2 0 - 2.80 % Final Granulocytes, immature (%) 07/30/2018 0.5 0.0 - 0.9 % Final ABSOLUTE NEUTS 07/30/2018 6.67 1.40 - 7.70 K/uL Final ABSOLUTE LYMPHS 07/30/2018 0.96 0.60 - 3.20 K/uL Final ABSOLUTE MONOS 07/30/2018 0.84* 0.11 - 0.59 K/uL Final ABSOLUTE EOS 07/30/2018 0.08 0.01 - 0.50 K/uL Final ABSOLUTE BASOS 07/30/2018 0.02 0.00 - 0.08 K/uL Final Granulocytes, immature 07/30/2018 0.04 0.00 - 0.05 K/uL Final SODIUM 07/30/2018 138 133 - 146 mmol/L Final CHLORIDE 07/30/2018 98 96 - 108 mmol/L Final POTASSIUM 07/30/2018 4.6 3.3 - 5.1 mmol/L Final CO2 07/30/2018 27 21 - 35 mmol/L Final BUN 07/30/2018 22* 6 - 19 mg/dL Final CREATININE 07/30/2018 0.80 0.5 - 1.5 mg/dL Final GLUCOSE 07/30/2018 107* 70 - 99 mg/dL Final CALCIUM 07/30/2018 10.0 8.4 - 10.3 mg/dL Final EGFR 07/30/2018 74 >59 mL/min/1.73m2 Final If patient is black, multiply result by 1.159. Estimated glomerular filtration rate calculated using the CKD-EPI equation. ANION GAP 07/30/2018 18 10 - 20 mmol/L Final ALKALINE PHOSPHATASE 07/30/2018 109 39 - 117 U/L Final TOTAL BILIRUBIN 07/30/2018 0.2 0.0 - 1.2 mg/dL Final DIRECT BILIRUBIN 07/30/2018 <0.2 0 - 0.3 mg/dL Final Bilirubin (Indirect) 07/30/2018 NOT CALCULATED 0 - 1.5 mg/dL Final AST 07/30/2018 22 0 - 37 U/L Final ALT 07/30/2018 20 0 - 40 U/L Final TOTAL PROTEIN 07/30/2018 6.9 6.5 - 8.0 g/dL Final ALBUMIN 07/30/2018 4.1 3.9 - 4.8 g/dL Final GLOBULIN 07/30/2018 2.8 1 - 4.8 g/dL Final A/G Ratio 07/30/2018 1.46 1.00 - 4.80 RATIO Final TROPONIN-T 07/30/2018 <0.01 0.00 - 0.03 ng/mL Final NT-PROBNP 07/30/2018 95 0 - 450 pg/mL Final Assessment & Plan (08/01/2020 2:11 PM EST): I reviewed the x-ray of the lumbar spine indicating lower lumbar facet arthropathy which may be contributing to her pain with some referred discomfort but I do think that she has a piriformis muscle syndrome presenting as her spinal enthesopathic process. She will receive injection therapy today. She will avoid prolonged sitting. She will continue to use the tramadol as needed. I will schedule her for physical therapy with therapeutic ultrasound and she will call me after 5-6 treatments to let me know how she is doing. I will consider an MRI scan through the area for further evaluation if this does not resolve appropriately. Assessment & Plan (03/04/2018 6:14 PM EDT): Patient is having a flare up of left lumbar spinal enthesopathy without evidence of radiculopathy or sciatica. She also has posttraumatic pain along the left sacrum. She does have multilevel lumbar spondylosis. She may use heat, stretches, [id number] naproxen sodium 440 mg twice daily as needed, and if needed for percent lidocaine cream. An injection will be given over the most tender area. We will do an x-ray of the pelvis and lumbosacral spine. I referred back to her tomorrow. Other medications remain unchanged. Assessment & Plan (09/24/2017 9:52 AM EDT): Acute episode improved after injection therapy on last visit. Numbness to continue with core strengthening as she does have symptoms of lumbar facet arthropathy with morning stiffness. This has not progressed. Assessment & Plan (07/02/2017 1:35 PM EST): Patient appears to be having a flare spinal enthesopathy and piriformis muscle syndrome. She will be given an injection today and in great detail it did demonstrate to her stretches for the iliotibial band and piriformis muscle. All of her questions were answered. Fibromyalgia 05/27/2017 Assessment & Plan (03/05/2021 11:06 AM EDT): Active but stable. Continue gabapentin tramadol vitamin D and healthful diet. Assessment & Plan (11/28/2020 2:14 PM EDT): Fibromyalgia is active but stable. She is sleeping better. She is exercising and plans to do more when she gets her next injection. She has good sleep hygiene and eats a very healthy diet. She may continue to use tramadol on an as-needed basis and take vitamin D on a daily basis. No visits with results within 3 Month(s) from this visit. Latest known visit with results is: Admission on 07/30/2018, Discharged on 07/30/2018 Component Date Value Ref Range Status Ventricular Rate EKG/MIN 07/30/2018 91 BPM Final Atrial Rate 07/30/2018 91 BPM Final OK Interval 07/30/2018 124 ms Final QRS Duration 07/30/2018 90 ms Final QT Interval 07/30/2018 344 ms Final QTC Interval 07/30/2018 423 ms Final P [place] 07/30/2018 54 degrees Final R Wave [place] 07/30/2018 57 degrees Final T Wave [place] 07/30/2018 23 degrees Final WBC 07/30/2018 8.61 3.40 - 11.20 K/uL Final RBC 07/30/2018 4.52 3.80 - 4.80 M/uL Final HGB 07/30/2018 13.4 12.0 - 15.0 g/dL Final HCT 07/30/2018 41.4 36.0 - 46.0 % Final PLT 07/30/2018 246 130 - 400 K/uL Final MCV 07/30/2018 91.6 79.0 - 98.0 fL Final MCH 07/30/2018 29.6 27.0 - 34.8 pg Final MCHC 07/30/2018 32.4 31.5 - 36.0 g/dL Final RDW 07/30/2018 13.3 10.8 - 14.6 % Final MPV 07/30/2018 9.5 9.4 - 12.4 fl Final NRBC 07/30/2018 0.00 0.00 /100 WBCs Final ABSOLUTE NRBC 07/30/2018 0.00 0.00 K/uL Final DIFF METHOD 07/30/2018 Auto Final NEUTS 07/30/2018 77.5 45.30 - 77.70 % Final LYMPHS 07/30/2018 11.1* 12.30 - 39.70 % Final MONOS 07/30/2018 9.8 4.10 - 12.80 % Final EOS 07/30/2018 0.9 0 - 7.2 % Final BASOS 07/30/2018 0.2 0 - 2.80 % Final Granulocytes, immature (%) 07/30/2018 0.5 0.0 - 0.9 % Final ABSOLUTE NEUTS 07/30/2018 6.67 1.40 - 7.70 K/uL Final ABSOLUTE LYMPHS 07/30/2018 0.96 0.60 - 3.20 K/uL Final ABSOLUTE MONOS 07/30/2018 0.84* 0.11 - 0.59 K/uL Final ABSOLUTE EOS 07/30/2018 0.08 0.01 - 0.50 K/uL Final ABSOLUTE BASOS 07/30/2018 0.02 0.00 - 0.08 K/uL Final Granulocytes, immature 07/30/2018 0.04 0.00 - 0.05 K/uL Final SODIUM 07/30/2018 138 133 - 146 mmol/L Final CHLORIDE 07/30/2018 98 96 - 108 mmol/L Final POTASSIUM 07/30/2018 4.6 3.3 - 5.1 mmol/L Final CO2 07/30/2018 27 21 - 35 mmol/L Final BUN 07/30/2018 22* 6 - 19 mg/dL Final CREATININE 07/30/2018 0.80 0.5 - 1.5 mg/dL Final GLUCOSE 07/30/2018 107* 70 - 99 mg/dL Final CALCIUM 07/30/2018 10.0 8.4 - 10.3 mg/dL Final EGFR 07/30/2018 74 >59 mL/min/1.73m2 Final If patient is black, multiply result by 1.159. Estimated glomerular filtration rate calculated using the CKD-EPI equation. ANION GAP 07/30/2018 18 10 - 20 mmol/L Final ALKALINE PHOSPHATASE 07/30/2018 109 39 - 117 U/L Final TOTAL BILIRUBIN 07/30/2018 0.2 0.0 - 1.2 mg/dL Final DIRECT BILIRUBIN 07/30/2018 <0.2 0 - 0.3 mg/dL Final Bilirubin (Indirect) 07/30/2018 NOT CALCULATED 0 - 1.5 mg/dL Final AST 07/30/2018 22 0 - 37 U/L Final ALT 07/30/2018 20 0 - 40 U/L Final TOTAL PROTEIN 07/30/2018 6.9 6.5 - 8.0 g/dL Final ALBUMIN 07/30/2018 4.1 3.9 - 4.8 g/dL Final GLOBULIN 07/30/2018 2.8 1 - 4.8 g/dL Final A/G Ratio 07/30/2018 1.46 1.00 - 4.80 RATIO Final TROPONIN-T 07/30/2018 <0.01 0.00 - 0.03 ng/mL Final NT-PROBNP 07/30/2018 95 0 - 450 pg/mL Final Assessment & Plan (12/29/2019 11:46 AM EDT): Continuing to have symptoms with fibromyalgia but quite stable. She is doing some leg splinting and stretching and strengthening and she is rehabbing continuously and making improvements since her fractures. She will see the patient. Medications will remain unchanged. Assessment & Plan (11/09/2019 9:35 AM EDT): Since the fall she is having a bit more pain secondary to her abnormal gait and putting more pressure on the right side of her lower spine and hip. She has been getting ultrasound treatments and taking tramadol. She finds cannabis to be useful at night to control pain and I explained to her the process where she can go about and get a license for usage on medical basis. I totally agree with this. She may continue the tramadol as needed to be taken with acetaminophen for greater analgesia. Assessment & Plan (04/21/2019 10:46 AM EDT): She has sacroiliac dysfunction. I reviewed the lumbar spine and sacroiliac joint x-rays. Sacroiliac joints are normal and there is some lower lumbar facet arthropathy which may be referred to the right gluteal area and she may also have an independent syndrome of strain of the piriformis muscle as well as the mid gluteal musculature. There is no evidence of primary hip disease. There is no evidence of radiculopathy. I am sending her to physical therapy. She will call me within the next few weeks if there is no improvement and I would consider doing an injection into the piriformis muscle tendon sheath at that time. Assessment & Plan (10/20/2018 12:18 PM EDT): Stable. Fewer tender points elicited today. Sleep is more sounds and there is more energy and less stiffness. Assessment & Plan (06/18/2018 11:23 AM EST): She is aching more but does not have discrete tender points and I suspect most of her pain comes from her lumbar facet arthropathy. We discussed this in some detail today spending more than 50% of this 28-minute minute visit in [id number] conversation discussing her sacroiliac joint x-ray which was read as normal as well as her lumbosacral x-ray which showed significant osteoarthritis in the L4-5 facet joints bilaterally. I am referring her to Janna Kern who is a well-respected physical therapist dealing with spinal issues. She should be of help to her. I also mentioned to the patient in addition to tramadol and turmeric she may consider Savella but we will hold off on this for now. Assessment & Plan (09/24/2017 9:53 AM EDT): Patient going through a stressful time during a divorce. She is keeping active and engaged in jorge chi, yoga, exercise, walking, and has a good social network of friends. She is compliant with vitamin D3. Fall and fracture prevention strategies were discussed as well as maintenance of vitamin D3 at 1000 units daily. I reviewed with her last bone densitometry just done in April of last year showing a left hip T score of -1.1 with a right hip T score of -1.4 and lumbar spine T score of - 1.0. In addition her thyroid function was normal. Her mammogram showed no masses or microcalcifications. She will have another bone densitometry and 2019. She will continue on 50 mg of tramadol twice daily as needed and 25 mg of amitriptyline at bedtime. Assessment & Plan (05/27/2017 2:19 PM EST): Active but stable on amitriptyline and tramadol with the development of a piriformis muscle syndrome on the right side. I gave her piriformis stretches to do and will continue on the same medication. Neck pain 05/27/2017 Rotator cuff impingement syndrome of right shoul aiden 05/27/2017 Assessment & Plan (10/20/2018 12:18 PM EDT): Somewhat limited external rotation and abduction but she is sleeping well at night. She may use a rolled up towel in her right axilla at night for comfort and she will continue to do stretching and strengthening involving the supraspinatus tendon to maintain range of motion. Further evaluation could be done with a shoulder veterans services specialist if she desires and if the pain becomes worse then a local injection will be performed. 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 I gave her several options and she elected to try a corticosteroid injection today and if there is no further and sustained improvement then we will engage with physical therapy. We will proceed up by an x-ray of the shoulder. Osteopenia of multiple sites 05/27/2017 Assessment & Plan (03/05/2021 11:07 AM EDT): Bone density reviewed from April 2019 and new bone densitometry will be ordered in April of this year. She will continue on vitamin D. Fall and fracture prevention strategies were discussed. No visits with results within 3 Month(s) from this visit. Latest known visit with results is: Admission on 07/30/2018, Discharged on 07/30/2018 Component Date Value Ref Range Status Ventricular Rate EKG/MIN 07/30/2018 91 BPM Final Atrial Rate 07/30/2018 91 BPM Final OK Interval 07/30/2018 124 ms Final QRS Duration 07/30/2018 90 ms Final QT Interval 07/30/2018 344 ms Final QTC Interval 07/30/2018 423 ms Final P [place] 07/30/2018 54 degrees Final R Wave [place] 07/30/2018 57 degrees Final T Wave [place] 07/30/2018 23 degrees Final WBC 07/30/2018 8.61 3.40 - 11.20 K/uL Final RBC 07/30/2018 4.52 3.80 - 4.80 M/uL Final HGB 07/30/2018 13.4 12.0 - 15.0 g/dL Final HCT 07/30/2018 41.4 36.0 - 46.0 % Final PLT 07/30/2018 246 130 - 400 K/uL Final MCV 07/30/2018 91.6 79.0 - 98.0 fL Final MCH 07/30/2018 29.6 27.0 - 34.8 pg Final MCHC 07/30/2018 32.4 31.5 - 36.0 g/dL Final RDW 07/30/2018 13.3 10.8 - 14.6 % Final MPV 07/30/2018 9.5 9.4 - 12.4 fl Final NRBC 07/30/2018 0.00 0.00 /100 WBCs Final ABSOLUTE NRBC 07/30/2018 0.00 0.00 K/uL Final DIFF METHOD 07/30/2018 Auto Final NEUTS 07/30/2018 77.5 45.30 - 77.70 % Final LYMPHS 07/30/2018 11.1* 12.30 - 39.70 % Final MONOS 07/30/2018 9.8 4.10 - 12.80 % Final EOS 07/30/2018 0.9 0 - 7.2 % Final BASOS 07/30/2018 0.2 0 - 2.80 % Final Granulocytes, immature (%) 07/30/2018 0.5 0.0 - 0.9 % Final ABSOLUTE NEUTS 07/30/2018 6.67 1.40 - 7.70 K/uL Final ABSOLUTE LYMPHS 07/30/2018 0.96 0.60 - 3.20 K/uL Final ABSOLUTE MONOS 07/30/2018 0.84* 0.11 - 0.59 K/uL Final ABSOLUTE EOS 07/30/2018 0.08 0.01 - 0.50 K/uL Final ABSOLUTE BASOS 07/30/2018 0.02 0.00 - 0.08 K/uL Final Granulocytes, immature 07/30/2018 0.04 0.00 - 0.05 K/uL Final SODIUM 07/30/2018 138 133 - 146 mmol/L Final CHLORIDE 07/30/2018 98 96 - 108 mmol/L Final POTASSIUM 07/30/2018 4.6 3.3 - 5.1 mmol/L Final CO2 07/30/2018 27 21 - 35 mmol/L Final BUN 07/30/2018 22* 6 - 19 mg/dL Final CREATININE 07/30/2018 0.80 0.5 - 1.5 mg/dL Final GLUCOSE 07/30/2018 107* 70 - 99 mg/dL Final CALCIUM 07/30/2018 10.0 8.4 - 10.3 mg/dL Final EGFR 07/30/2018 74 >59 mL/min/1.73m2 Final If patient is black, multiply result by 1.159. Estimated glomerular filtration rate calculated using the CKD-EPI equation. ANION GAP 07/30/2018 18 10 - 20 mmol/L Final ALKALINE PHOSPHATASE 07/30/2018 109 39 - 117 U/L Final TOTAL BILIRUBIN 07/30/2018 0.2 0.0 - 1.2 mg/dL Final DIRECT BILIRUBIN 07/30/2018 <0.2 0 - 0.3 mg/dL Final Bilirubin (Indirect) 07/30/2018 NOT CALCULATED 0 - 1.5 mg/dL Final AST 07/30/2018 22 0 - 37 U/L Final ALT 07/30/2018 20 0 - 40 U/L Final TOTAL PROTEIN 07/30/2018 6.9 6.5 - 8.0 g/dL Final ALBUMIN 07/30/2018 4.1 3.9 - 4.8 g/dL Final GLOBULIN 07/30/2018 2.8 1 - 4.8 g/dL Final A/G Ratio 07/30/2018 1.46 1.00 - 4.80 RATIO Final TROPONIN-T 07/30/2018 <0.01 0.00 - 0.03 ng/mL Final NT-PROBNP 07/30/2018 95 0 - 450 pg/mL Final Assessment & Plan (11/28/2020 2:13 PM EDT): Previous bone densitometry was reviewed and new bone densitometry will be scheduled in April of this year. She has stable osteopenia and a therapeutic 25-hydroxy vitamin D level and we discussed this as well as fall and fracture prevention strategies. Results for orders placed or performed during the hospital encounter of 04/14/19 (from the past 67527 hour(s)) DXA Monitoring Narrative CLINICAL HISTORY: + OSTEOPOROSIS [KNOWN DX] TECHNIQUE: DEXA Imaging of the lumbar spine and hips performed. COMPARISON: 04/15/2017 BONE DENSITY FINDINGS: Evaluation of the lumbar spine and hips was performed and felt to be technically adequate. Total bone mineral density in the L1-L4 vertebral bodies was calculated at 0.903 gm/cm2 with a T-score of -1.3 falling within the WHO classification of osteopenia. Z-score of 1.0.3.2% decrease Total bone mineral density in the right hip was calculated at 0.744 gm/cm2 with a T-score of -1.6 falling within the WHO classification of osteopenia. Z-score of 0.0. 3.0% decrease Total bone mineral density in the left hip was calculated at 0.813 gm/cm2 with a T-score of -1.1 falling within the WHO classification of osteopenia. Z-score of 0.6. 0.8% increase Impression Osteopenia POS - [facility] Assessment & Plan (09/26/2020 2:42 PM EDT): Bone density from 2019 reviewed indicating osteopenia which showed statistically significant decline compared with her scan in 2016. She is compliant with vitamin D and her 25-hydroxy vitamin D level has been therapeutic. Fall and fracture prevention strategies and repeat bone densitometry this summer. Results for orders placed or performed during the hospital encounter of 04/14/19 (from the past 11918 hour(s)) DXA Monitoring Narrative CLINICAL HISTORY: + OSTEOPOROSIS [KNOWN DX] TECHNIQUE: DEXA Imaging of the lumbar spine and hips performed. COMPARISON: 04/15/2017 BONE DENSITY FINDINGS: Evaluation of the lumbar spine and hips was performed and felt to be technically adequate. Total bone mineral density in the L1-L4 vertebral bodies was calculated at 0.903 gm/cm2 with a T-score of -1.3 falling within the WHO classification of osteopenia. Z-score of 1.0.3.2% decrease Total bone mineral density in the right hip was calculated at 0.744 gm/cm2 with a T-score of -1.6 falling within the WHO classification of osteopenia. Z-score of 0.0. 3.0% decrease Total bone mineral density in the left hip was calculated at 0.813 gm/cm2 with a T-score of -1.1 falling within the WHO classification of osteopenia. Z-score of 0.6. 0.8% increase Impression Osteopenia POS - [facility] Assessment & Plan (12/29/2019 11:47 AM EDT): Status post distal femur and right elbow fracture patient is healing nicely and regaining muscle strength. Tramadol covers her pain. She will see the orthopedic surgeon next month. I reviewed last year's bone densitometry indicating osteopenia. Because of the intervening fractures, postmenopausal status, and midline habitus we will do another bone densitometry this year and if there was a statistically significant decline I would recommend pharmacologic intervention to preserve bone strength. No visits with results within 3 Month(s) from this visit. Latest known visit with results is: Admission on 07/30/2018, Discharged on 07/30/2018 Component Date Value Ref Range Status Ventricular Rate EKG/MIN 07/30/2018 91 BPM Final Atrial Rate 07/30/2018 91 BPM Final OK Interval 07/30/2018 124 ms Final QRS Duration 07/30/2018 90 ms Final QT Interval 07/30/2018 344 ms Final QTC Interval 07/30/2018 423 ms Final P [place] 07/30/2018 54 degrees Final R Wave [place] 07/30/2018 57 degrees Final T Wave [place] 07/30/2018 23 degrees Final WBC 07/30/2018 8.61 3.40 - 11.20 K/uL Final RBC 07/30/2018 4.52 3.80 - 4.80 M/uL Final HGB 07/30/2018 13.4 12.0 - 15.0 g/dL Final HCT 07/30/2018 41.4 36.0 - 46.0 % Final PLT 07/30/2018 246 130 - 400 K/uL Final MCV 07/30/2018 91.6 79.0 - 98.0 fL Final MCH 07/30/2018 29.6 27.0 - 34.8 pg Final MCHC 07/30/2018 32.4 31.5 - 36.0 g/dL Final RDW 07/30/2018 13.3 10.8 - 14.6 % Final MPV 07/30/2018 9.5 9.4 - 12.4 fl Final NRBC 07/30/2018 0.00 0.00 /100 WBCs Final ABSOLUTE NRBC 07/30/2018 0.00 0.00 K/uL Final DIFF METHOD 07/30/2018 Auto Final NEUTS 07/30/2018 77.5 45.30 - 77.70 % Final LYMPHS 07/30/2018 11.1* 12.30 - 39.70 % Final MONOS 07/30/2018 9.8 4.10 - 12.80 % Final EOS 07/30/2018 0.9 0 - 7.2 % Final BASOS 07/30/2018 0.2 0 - 2.80 % Final Granulocytes, immature (%) 07/30/2018 0.5 0.0 - 0.9 % Final ABSOLUTE NEUTS 07/30/2018 6.67 1.40 - 7.70 K/uL Final ABSOLUTE LYMPHS 07/30/2018 0.96 0.60 - 3.20 K/uL Final ABSOLUTE MONOS 07/30/2018 0.84* 0.11 - 0.59 K/uL Final ABSOLUTE EOS 07/30/2018 0.08 0.01 - 0.50 K/uL Final ABSOLUTE BASOS 07/30/2018 0.02 0.00 - 0.08 K/uL Final Granulocytes, immature 07/30/2018 0.04 0.00 - 0.05 K/uL Final SODIUM 07/30/2018 138 133 - 146 mmol/L Final CHLORIDE 07/30/2018 98 96 - 108 mmol/L Final POTASSIUM 07/30/2018 4.6 3.3 - 5.1 mmol/L Final CO2 07/30/2018 27 21 - 35 mmol/L Final BUN 07/30/2018 22* 6 - 19 mg/dL Final CREATININE 07/30/2018 0.80 0.5 - 1.5 mg/dL Final GLUCOSE 07/30/2018 107* 70 - 99 mg/dL Final CALCIUM 07/30/2018 10.0 8.4 - 10.3 mg/dL Final EGFR 07/30/2018 74 >59 mL/min/1.73m2 Final If patient is black, multiply result by 1.159. Estimated glomerular filtration rate calculated using the CKD-EPI equation. ANION GAP 07/30/2018 18 10 - 20 mmol/L Final ALKALINE PHOSPHATASE 07/30/2018 109 39 - 117 U/L Final TOTAL BILIRUBIN 07/30/2018 0.2 0.0 - 1.2 mg/dL Final DIRECT BILIRUBIN 07/30/2018 <0.2 0 - 0.3 mg/dL Final Bilirubin (Indirect) 07/30/2018 NOT CALCULATED 0 - 1.5 mg/dL Final AST 07/30/2018 22 0 - 37 U/L Final ALT 07/30/2018 20 0 - 40 U/L Final TOTAL PROTEIN 07/30/2018 6.9 6.5 - 8.0 g/dL Final ALBUMIN 07/30/2018 4.1 3.9 - 4.8 g/dL Final GLOBULIN 07/30/2018 2.8 1 - 4.8 g/dL Final A/G Ratio 07/30/2018 1.46 1.00 - 4.80 RATIO Final TROPONIN-T 07/30/2018 <0.01 0.00 - 0.03 ng/mL Final NT-PROBNP 07/30/2018 95 0 - 450 pg/mL Final Results for orders placed or performed during the hospital encounter of 04/14/19 (from the past 21840 hour(s)) DXA Monitoring Narrative CLINICAL HISTORY: + OSTEOPOROSIS [KNOWN DX] TECHNIQUE: DEXA Imaging of the lumbar spine and hips performed. COMPARISON: 04/15/2017 BONE DENSITY FINDINGS: Evaluation of the lumbar spine and hips was performed and felt to be technically adequate. Total bone mineral density in the L1-L4 vertebral bodies was calculated at 0.903 gm/cm2 with a T-score of -1.3 falling within the WHO classification of osteopenia. Z-score of 1.0.3.2% decrease Total bone mineral density in the right hip was calculated at 0.744 gm/cm2 with a T-score of -1.6 falling within the WHO classification of osteopenia. Z-score of 0.0. 3.0% decrease Total bone mineral density in the left hip was calculated at 0.813 gm/cm2 with a T-score of -1.1 falling within the WHO classification of osteopenia. Z-score of 0.6. 0.8% increase Impression Osteopenia POS - [facility] Assessment & Plan (11/09/2019 9:36 AM EDT): Her fall and subsequent right elbow and distal femur fracture are not insufficiency fractures. She will continue vitamin D3 at 1000 units daily and when she does come to the office we will be measuring her 25-hydroxy vitamin D level. She will continue with balance training, yoga, and jorge chi to prevent falls. Her bone densitometry was done in May showing's generally stable osteopenia throughout. This will be done again in the fall 2020. Results for orders placed or performed during the hospital encounter of 04/14/19 (from the past 98589 hour(s)) DXA Monitoring Narrative CLINICAL HISTORY: + OSTEOPOROSIS [KNOWN DX] TECHNIQUE: DEXA Imaging of the lumbar spine and hips performed. COMPARISON: 04/15/2017 BONE DENSITY FINDINGS: Evaluation of the lumbar spine and hips was performed and felt to be technically adequate. Total bone mineral density in the L1-L4 vertebral bodies was calculated at 0.903 gm/cm2 with a T-score of -1.3 falling within the WHO classification of osteopenia. Z-score of 1.0.3.2% decrease Total bone mineral density in the right hip was calculated at 0.744 gm/cm2 with a T-score of -1.6 falling within the WHO classification of osteopenia. Z-score of 0.0. 3.0% decrease Total bone mineral density in the left hip was calculated at 0.813 gm/cm2 with a T-score of -1.1 falling within the WHO classification of osteopenia. Z-score of 0.6. 0.8% increase Impression Osteopenia POS - [facility] Assessment & Plan (04/21/2019 10:47 AM EDT): I reviewed with her in detail using the images from the last bone densitometry explaining that she has stable osteopenia in the dual femur and the spine showing a nonsignificant decline from 2017. Her last vitamin D level in 2017 was 39 which is therapeutic. I am recommending that she speak to her primary care physician within the next 2 months and have another 25 hydroxy vitamin D level done. Would like to see this at 40 or above. Fall and fracture prevention strategies discussed. Results for orders placed or performed during the hospital encounter of 04/14/19 (from the past 04140 hour(s)) DXA Monitoring Narrative CLINICAL HISTORY: + OSTEOPOROSIS [KNOWN DX] TECHNIQUE: DEXA Imaging of the lumbar spine and hips performed. COMPARISON: 04/15/2017 BONE DENSITY FINDINGS: Evaluation of the lumbar spine and hips was performed and felt to be technically adequate. Total bone mineral density in the L1-L4 vertebral bodies was calculated at 0.903 gm/cm2 with a T-score of -1.3 falling within the WHO classification of osteopenia. Z-score of 1.0.3.2% decrease Total bone mineral density in the right hip was calculated at 0.744 gm/cm2 with a T-score of -1.6 falling within the WHO classification of osteopenia. Z-score of 0.0. 3.0% decrease Total bone mineral density in the left hip was calculated at 0.813 gm/cm2 with a T-score of -1.1 falling within the WHO classification of osteopenia. Z-score of 0.6. 0.8% increase Impression Osteopenia POS - [facility]-RW Assessment & Plan (10/20/2018 12:17 PM EDT): Reviewed bone densitometry from April 2017 indicating osteopenic values for the lumbar spine and dual femur. Set up another bone density study for April of this year. Fall and fracture prevention strategies discussed. Assessment & Plan (06/18/2018 11:23 AM EST): Bone density from 2017 reviewed and shows osteopenia. She is not a particular risk for fracture. We discussed fall and fracture risk reduction as well as maintenance of vitamin D3. Assessment & Plan (05/27/2017 2:17 PM EST): I reviewed with her her bone densitometry from last month indicating a right hip T score of -1.4 with a left hip T score of -1.1 and a mean lumbar spine T score of -1.0. I told her she was not in need a pharmacologic intervention. We discussed fall and fracture prevention strategies and compliance with vitamin D3 at 1000 units daily. Her last vitamin D level was just therapeutic at 39. Her BUN/creatinine were normal. Another bone densitometry will be planned for 2019. Encounters Date Type Department Care Team Description 01/06/2025 8:56 AM EDT - 01/06/2025 11:59 PM EDT Hospital Encounter [address] [place] [address] Azalea Degroot MD Discharge Disposition: Home or Self Care 08/23/2024 Procedure Pass [address] [place] [address] from Last 3 Months Immunizations Immunization Administration Dates Next Due COVID-19 (Pre-04/28) Pfizer Vaccine, mRNA, PF 08/21/2020 Hepatitis A, Adult 06/18/2016 INFLUENZA, SPLIT VIRUS, TRIV ALENT W/ PRESERVATIVE IM 03/27/2017,06/18/2016,05/09/2015,04/06 Influenza High-Dose Trivalen t Preservative Free IM 05/27/2019,04/15/2018 Influenza Quadrivalent Adjuv anted Preservative Free IM 05/21/2022,04/26/2021 Influenza Quadrivalent Prese rvative Free IM 04/10/2020 Influenza, Unspecified Formulation 05/03/2021 Influenza, whole 04/13/2019,07/08/2006 Pneumococcal conjugate PCV13 01/23/2015 Pneumococcal polysaccharide PPSV23 12/28/2012 Td, unspecified formulation 07/03/2004 Tdap 11/10/2022,01/04/2014 Zoster live 01/28/2011 Zoster recombinant 09/29/2018,07/21/2018 Family History Medical History Relation Comments Alzheimer's disease Brother 1 No Known Problems Brother 2 Colon polyps Father pre cancerous Glaucoma Father Pancreatic cancer Father Breast cancer Maternal Aunt 1 Breast cancer Maternal Aunt 2 Prostate cancer Maternal Grandfather Cancer Mother Cancer Paternal Grandmother Relation Status Comments Brother 1 Brother 2 Father Maternal Aunt 1 Maternal Aunt 2 Maternal Grandfather (Age 90) Maternal Grandmother Mother ovarian cancer a ge 73 Paternal Grandfather Paternal Grandmother Social History Tobacco Use Types Packs/Day Years Used Date Smoking Tobacco: Never Passive Smoke Exposure: Never Smokeless Tobacco: Never Tobacco Cessation:Counseling Given: Not Answered Alcohol Use Standard Drinks/Week Comments Yes 1 [...] Not on file Not on murali e Last Filed Vital Signs Vital Sign Reading Time Taken Comments Blood Pressure 138/84 11/25/2023 6:31 PM EDT Pulse 71 11/25/2023 6:31 PM EDT Temperature 37 C (98.6 F) 11/25/2023 6:31 PM EDT Respiratory Rate 16 11/25/2023 6:31 PM EDT Oxygen Saturation 98% 11/25/2023 6:31 PM EDT Inhaled Oxygen Concentration - - Weight 63.5 kg (140 lb) 11/25/2023 6:31 PM EDT Height 166.4 cm (5' 5.5 ) 11/25/2023 6:31 PM EDT Body Mass Index 22.94 11/25/2023 6:31 PM EDT Plan of Treatment Health Maintenance Due Date Last Done Comments LIPID PANEL 1946 TSH LEVEL 1946 DEPRESSION SCREENING 1958 HEPATITIS C SCREENING 1964 RSV VACCINE (1 - 1-dose 75+ series) 2021 BLOOD PRESSURE 05/27/2024 11/25/2023 INFLUENZA VACCINE (#1) 2025 , 04/02/2023, 05/21/2022, Additional history exists COVID-19 VACCINE (2024- season) 2025 04/08/2023, 11/15/2021, 04/06/2021, Additional history exists Adult Td,Tdap Booster 11/10/2032 11/10/2022 , 01/04/2014, 07/03/2004 PNEUMOCOCCAL VACCINES (50+ years) Completed 01/23/2015, 12/28/2012 HEPATITIS A VACCINES Aged Out 06/18/2016 No long er eligible based on patient's age to complete this topic ZOSTER VACCINES Completed 09/29/2018, 07/07, 01/28/2011 OSTEOPOROSIS SCREENING INITIAL (ONE-TIME) Completed 06/21/2021, 04/14/2019 SMOKING STATUS SCREENING (Once After 26 Yrs) Completed 01/06/2025 HIB VACCINES Aged Out No longer eligi ble based on patient's age to complete this topic MENINGOCOCCAL VACCINES (ACWY) Aged Out No longer eligible based on patient's age to complete this topic MENINGOCOCCAL VACCINES (B) Aged Out N o longer eligible based on patient's age to complete this topic Medical Devices Implanted Type Area [employer] Assistant Device Identifier Shelf Expiration Date Model / Serial / Lot Right Hip Hardware Procedures Procedure Name Priority Date/Time Associated Diagnosis Comments BI MAMMOGRAM SCREENING WITH TOMOSYNTHESIS WITH CAD (BILATERAL) Routine 01/06/2025 9:23 AM EDT Breast screening BD DXA AXIAL (SPINE) WITH HIP Routine 06/21/2021 2:11 PM EST Osteopenia, unspecified location from Last 3 Months or Most Recently Relevant to Health Maintenance Results * BI MAMMOGRAM SCREENING WITH TOMOSYNTHESIS [...] be notified of the results and recommendations. us Azalea Degroot MD IMG MG EXAMS Final Res ult * BD DXA AXIAL (SPINE) WITH HIP (06/21/2021 2:11 PM EST) Anatomical Region Laterality Modality Bone Density Bone Density 06/21/2021 2:15 PM EST Impressions 06/21/2021 2:16 PM EST Stable lumbar spine, bilateral hip and femoral neck osteopenia. Narrative 06/21/2021 2:16 PM EST COMPARISON: 04/14/2019. BONE DENSITY FINDINGS: History: This is a 76-year-old postmenopausal female. Evaluation of the lumbar spine and hips was performed and felt to be technically adequate. L1-L4 vertebral bodies total bone mineral density was calculated at 0.881 gm/cm2 with a T-score of -1.5 falling within the WHO classification of osteopenia. Z-score of 0.9. Fracture risk increased. Right femoral neck bone mineral density was calculated at 0.598 gm/cm2 with a T- score of -2.3 falling within the WHO classification of osteopenia. Z-score of -0.2. Total Right hip bone mineral density was calculated at 0.720 gm/cm2 with a T- score of -1.8 falling within the WHO classification of osteopenia. Z-score of 0. Left femoral neck bone mineral density was calculated at 0.636 gm/cm2 with a T- score of -1.9 falling within the WHO classification of osteopenia. Z-score of 0.2. Total Left hip bone mineral density was calculated at 0.793 gm/cm2 with a T- score of -1.2 falling within the WHO classification of osteopenia. Z-score of 0.6. Procedure Note Des Farr MD - 06/21/2021 COMPARISON: 04/14/2019. BONE DENSITY FINDINGS: History: This is a 76-year-old postmenopausal female. Evaluation of the lumbar spine and hips was performed and felt to betechnically adequate. L1-L4 vertebral bodies total bone mineral density was calculated at 0.881gm/cm2 with a T-score of -1.5 falling within the WHO classification ofosteopenia. Z-score of 0.9. Fracture risk increased. Right femoral neck bone mineral density was calculated at 0.598 gm/zb3rxyq a T- score of -2.3 falling within the WHO classification ofosteopenia. Z-score of -0.2. Total Right hip bone mineral density was calculated at 0.720 gm/cm2 with aT- score of -1.8 falling within the WHO classification of osteopenia.Z-score of 0. Left femoral neck bone mineral density was calculated at 0.636 gm/cm2 witha T- score of -1.9 falling within the WHO classification of osteopenia.Z-score of 0.2. Total Left hip bone mineral density was calculated at 0.793 gm/cm2 with aT-score of -1.2 falling within the WHO classification of osteopenia.Z-score of 0.6. IMPRESSION: Stable lumbar spine, bilateral hip and femoral neck osteopenia. Nir NEAL BD BONE DENSITY DEXA F inal Result from Last 3 Months or Most Recently Relevant to Health Maintenance Insurance MEDICARE PART A & B [facility] MEDICARE SUPPLEMENT MEDICARE PART A & B [facility] MEDICARE SUPPLEMENT MEDICARE PART A & B [facility] MEDICARE SUPPLEMENT MEDICARE PART A & B [facility] MEDICARE SUPPLEMENT MEDICARE PART A & B [facility] MEDICARE SUPPLEMENT MEDICARE PART A & [facility] MEDICARE SUPPLEMENT MEDICARE PART A & B [employer] MEDICARE SUPPLEMENT MEDICARE PART A & B [employer] MEDICARE SUPPLEMENT MEDICARE PART A & B [facility] [employer] [phone] Care Teams Operations Research Engineer Relationship Specialty Start Date End Date Azalea Degroot MD [address] [place] [address] PCP - General Internal Medicine 03/04/18 Nir Neil MD [email or web address] Historical LMR Provider 04/22/17 Additional Source Comments The information contained in this document represents components of the legal health record. It is not the complete legal health record.Located Within [facility]
== END 2025-03-09 10:32 | disposition home or self-care (01) ==
LOC: HO.HMGAL 10:29
PROVIDERS: PCP Internal Medicine; Visit Provider Registered Nurse Emergency
DX: J30.89 Other allergic rhinitis (principal)
CPT/HCPCS: 95117; 95165

== ENCOUNTER 2025-03-16 11:09 | Outpatient (AMB) | payer MEDICARE, OTHER, SELFPAY ==
--- OUTSIDE RECORDS SUMMARY | 2025-03-16 14:13 | XMS_ITS | Encounter Summary ---
Author Organization [facility] Address [address] [facility] [address] [place] [address] Phone Care Team Providers Care Environment Friendly Landscape Designer Name Role Phone Nir Neil MD Unavailable [email or web address] Maritza Gonzalez MD Unavailable [phone] Hollie Hood TYPESETTING MACHINE OPERATOR/TENDER Unavailable [phone] Emerita Hsu MD Unavailable Azalea Degroot MD Primary Care Provider [phone] Encounter Details Date Type Department Care Team (Late st Contact Info) Description 02/05/2021 Ancillary Orders Virtual Department [address] [place] [address] Azalea Degroot MD [address] [place], [place] [id number] Breast screening Social History Tobacco Use Types [...] unspecified documented in this encounter Care Teams Environment Friendly Landscape Designer Relationship Specialty Start Date End Date Azalea Degroot MD [address] [place] [address] PCP - General Internal Medicine 03/04/18 Nir Neil MD [email or web address] Historical LMR Provider 04/22/17 Maritza Gonzalez MD [address] [facility], 2nd [place] [address] [email or web address] Historical LMR Provider 04/22/17 Hollie Hood NP [address] [place] [address] Historical LMR Provider 04/22/17 2 Emerita Hsu MD [address] [place] [address] [place] [phone] [email or web address] Historical LMR Provider 04/22/17 2 documented as of this encounter Additional Source Comments The information contained in this document represents components of the legal health record. It is not the complete legal health record.[facility]
--- OUTSIDE RECORDS SUMMARY | 2025-03-16 14:14 | XMS_ITS | Encounter Summary ---
Author Organization [facility] Address [address] [place] [address] Phone Care Team Providers Care Supervisor Knitting Name Role Phone Nir Neil MD Unavailable [email or web address] Maritza Gonzalez MD Unavailable [phone] LIGHT SERVICER SUPERVISOR Unavailable [phone] Emerita Hsu MD Unavailable Azalea Degroot MD Primary Care Provider [phone] Encounter Details Date Type Department Care Team (Late st Contact Info) Description 09/26/2020 Procedure Pass [facility], [address] [address] Social History Tobacco Use Types Packs/Day Years [...] on filedocumented in this encounter Care Teams Supervisor Knitting Relationship Specialty Start Date End Date Azalea Degroot MD [address] [place] [address] PCP - General Internal Medicine 03/04/18 Nir Neil MD [email or web address] Historical LMR Provider 04/22/17 Maritza Gonzalez MD [address] [address] [email or web address] Historical LMR Provider 04/22/17 Hollie Hood NP [address] [place] [address] Historical LMR Provider 04/22/17 2 Emerita Hsu MD [address] [place] [address] [phone] [email or web address] Historical LMR Provider 04/22/17 2 documented as of this encounter Additional Source Comments The information contained in this document represents components of the legal health record. It is not the complete legal health record.[facility]
--- OUTSIDE RECORDS SUMMARY | 2025-03-16 14:16 | XMS_ITS | Encounter Summary ---
Author Organization [facility] Address [address] [place] [address] [place] [address] Phone Care Team Providers Care Gear And Spline Grinder Name Role Phone Nir Neil MD Unavailable [email or web address] Azalea Degroot MD Primary Care Provider [phone] Encounter Details Date Type Department Care Team (Late st Contact Info) Description 11/05/2023 Procedure Pass [facility] Endoscopy Admitting Dept Virtual Department [address] [place] [address] Social History Tobacco Use Types Packs/Day Years [...] on filedocumented in this encounter Care Teams Gear And Spline Grinder Relationship Specialty Start Date End Date Azalea Degroot MD [address] [place], [place] [phone] PCP - General Internal Medicine 03/04/18 Nir Neil MD [email or web address] Historical LMR Provider 04/22/17 documented as of this encounter Additional Source Comments The information contained in this document represents components of the legal health record. It is not the complete legal health record.[facility]
--- OUTSIDE RECORDS SUMMARY | 2025-03-16 14:16 | XMS_ITS | Encounter Summary ---
Author Organization [facility] Address [address] [facility] [address] [place] [address] Phone Care Team Providers Care Ink Printer Name Role Phone Nir Neil MD Unavailable [email or web address] Azalea Degroot MD Primary Care Provider [phone] Encounter Details Date Type Department Care Team (Late st Contact Info) Description 04/15/2023 Procedure Pass [facility], Ct Scan - [facility] [address] [place] [address] Social History Tobacco Use Types Packs/Day Years [...] 10:24 AM EDT Mirtha Burks RN * [place] Suicide Severity Rating Scale (Screener/Recent Self-Report) Question [...] on filedocumented in this encounter Care Teams Ink Printer Relationship Specialty Start Date End Date Azalea Degroot MD [address] [place] [address] PCP - General Internal Medicine 03/04/18 Nir Neil MD [email or web address] Historical LMR Provider 04/22/17 documented as of this encounter Additional Source Comments The information contained in this document represents components of the legal health record. It is not the complete legal health record.[facility]
--- OUTSIDE RECORDS SUMMARY | 2025-03-16 14:16 | XMS_ITS | Encounter Summary ---
Author Organization [facility] Address [address] [place] [address] Phone Care Team Providers Care Rug Underlay Machine Operator Name Role Phone Nir Neil MD Unavailable [email or web address] [email or web address] Maritza Gonzalez MD Unavailable [phone] Hollie Hood NP Unavailable [phone] Emerita Hsu MD Unavailable Emerita Hsu MD Primary Care Provider [phone] Azalea Degroot MD Primary Care Provider [phone] Encounter Details Date Type Department Care Team (Late st Contact Info) Description 10/17/2017 Ancillary Orders Virtual Department 30 [place] [address] Emerita Hsu MD 38 [facility] [address] [place] [phone] [email or web address] Breast screening Social History Tobacco Use Types [...] unspecified documented in this encounter Care Teams Rug Underlay Machine Operator Relationship Specialty Start Date End Date Emerita Hsu MD 38 [facility] [address] [address] [email or web address] PCP - General Family Medicine 05/27/17 03/03/18 Azalea Degroot MD [address] [place] [address] PCP - General Internal Medicine 03/04/18 Nir Neil MD [email or web address] Historical LMR Provider 04/22/17 Maritza Gonzalez MD [address] [place] [address] [email or web address] Historical LMR Provider 04/22/17 Hollie Hood NP [address] [place] [address] Historical LMR Provider 04/22/17 2 Emerita Hsu MD [address] [place] [address] [address] [address] [email or web address] Historical LMR Provider 04/22/17 2 documented as of this encounter Additional Source Comments The information contained in this document represents components of the legal health record. It is not the complete legal health record.[facility]
--- OUTSIDE RECORDS SUMMARY | 2025-03-16 14:16 | XMS_ITS | Encounter Summary ---
Author Organization [facility] Address [address] [place] [address] [place] [address] Phone Care Team Providers Care Outside Deliverer Name Role Phone Nir Neil MD Unavailable [email or web address] Azalea Degroot MD Primary Care Provider [phone] Encounter Details Date Type Department Care Team (Late st Contact Info) Description 09/11/2023 Procedure Pass [facility], [facility] 30 [place] [address] Social History Tobacco Use Types Packs/Day Years [...] on filedocumented in this encounter Care Teams Outside Deliverer Relationship Specialty Start Date End Date Azalea Degroot MD [address] [place] [address] PCP - General Internal Medicine 03/04/18 Nir Neil MD [email or web address] Historical LMR Provider 04/22/17 documented as of this encounter Additional Source Comments The information contained in this document represents components of the legal health record. It is not the complete legal health record.[facility]
--- OUTSIDE RECORDS SUMMARY | 2025-03-16 14:17 | XMS_ITS | Encounter Summary ---
Author Organization [facility] Address [address] [place] [address] Phone Care Team Providers Care Office Service Coordinator Name Role Phone Nir Neil MD Unavailable [email or web address] Azalea Degroot MD Primary Care Provider [phone] Encounter Details Date Type Department Care Team (Late st Contact Info) Description 08/06/2021 Ancillary Orders [facility] Medicine [address] [place] [address] Gabrielle Preciado MD [address] [place] [address] Orthopedics & Sports Medicine, [facility] [place] [address] [email or web address] Social History Tobacco Use Types Packs/Day Years [...] on filedocumented in this encounter Care Teams Office Service Coordinator Relationship Specialty Start Date End Date Azalea Degroot MD [address] [place] [address] PCP - General Internal Medicine 03/04/18 Nir Neil MD [email or web address] Historical LMR Provider 04/22/17 documented as of this encounter Additional Source Comments The information contained in this document represents components of the legal health record. It is not the complete legal health record.[facility]
--- OUTSIDE RECORDS SUMMARY | 2025-03-16 14:17 | XMS_ITS | Encounter Summary ---
Author Organization [facility] Address [address] [place] [address] Phone Care Team Providers Care Egg Setter Name Role Phone Nir Neil MD Unavailable [email or web address] Azalea Degroot MD Primary Care Provider [phone] Reason for Referral * MRI/CAT Scan - Closed Specialty Diagnoses / Procedures Referred By Princess calloway Referred To Contact Radiology Diagnoses Right hip pain Procedures MRI Hip (Right) Isabel Rico NP [address] [place] [address] Phone: tel: fax: [email or web address] Referral ID Status Reason Start Date Expiration Date Visits Re quested Visits Authorized [id number] Closed 10/02/2021 10/02/2022 1 1 Encounter Details Date Type Department Care Team (Latest Contact Info) Description 10/02/2021 Transcribe Orders Virtual Department 30 [place] [address] Isabel Rico NP [address] [place] [phone] [email or web address] Right hip pain (Primary Dx) Social History [...] thigh documented in this encounter Care Teams Egg Setter Relationship Specialty Start Date End Date Azalea Degroot MD [address] [place], [place] [id number] PCP - General Internal Medicine 03/04/18 Nir Neil MD [email or web address] Historical LMR Provider 04/22/17 documented as of this encounter Additional Source Comments The information contained in this document represents components of the legal health record. It is not the complete legal health record.[facility]
--- OUTSIDE RECORDS SUMMARY | 2025-03-16 14:17 | XMS_ITS | Encounter Summary ---
Author Organization [facility] Address [address] [place] [address] Phone Care Team Providers Care Medicare Sales Executive Name Role Phone Nir Neil MD Unavailable [email or web address] Azalea Degroot MD Primary Care Provider [phone] Encounter Details Date Type Department Care Team (Latest Contact Info) Description 08/06/2021 Ancillary Orders [address] [address] Gabrielle Preciado MD [address] [place] [address] Orthopedics & Sports Medicine, [place] [address] [email or web address] Osteoarthritis of right hip, unspecified osteoarthritis [...] type documented in this encounter Care Teams Medicare Sales Executive Relationship Specialty Start Date End Date Azalea Degroot MD [address] [place] [address] PCP - General Internal Medicine 03/04/18 Nir Neil MD [email or web address] Historical LMR Provider 04/22/17 documented as of this encounter Additional Source Comments The information contained in this document represents components of the legal health record. It is not the complete legal health record.[facility]
--- OUTSIDE RECORDS SUMMARY | 2025-03-16 14:18 | XMS_ITS | Encounter Summary ---
Author Organization [facility] Address [address] [place] [address] [place] [address] Phone Care Team Providers Care Logging Assistant Name Role Phone Nir Neil MD Unavailable [email or web address] Azalea Degroot MD Primary Care Provider [phone] Encounter Details Date Type Department Care Team (Late st Contact Info) Description 08/23/2024 Procedure Pass [address] [place] [address] Social History Tobacco Use Types Packs/Day Years [...] on filedocumented in this encounter Care Teams Logging Assistant Relationship Specialty Start Date End Date Azalea Degroot MD [address] [place], [place] [address] PCP - General Internal Medicine 03/04/18 Nir Neil MD [email or web address] Historical LMR Provider 04/22/17 documented as of this encounter Additional Source Comments The information contained in this document represents components of the legal health record. It is not the complete legal health record.[facility]
--- OUTSIDE RECORDS SUMMARY | 2025-03-16 14:18 | XMS_ITS | Encounter Summary ---
Author Organization [facility] Address [address] [place] [address] Phone Care Team Providers Care Locksmith Helper Name Role Phone Nir Neil MD Unavailable [email or web address] Maritza Gonzalez MD Unavailable [phone] Hollie Hood NP Unavailable [phone] Emerita Hsu MD Unavailable Azalea Degroot MD Primary Care Provider [phone] Encounter Details Date Type Department Care Team (Late st Contact Info) Description 03/25/2020 Procedure Pass [address] [address] Social History Tobacco Use Types Packs/Day Years [...] on filedocumented in this encounter Care Teams Locksmith Helper Relationship Specialty Start Date End Date Azalea Degroot MD 46 [place] [address] PCP - General Internal Medicine 03/04/18 Nir Neil MD [email or web address] Historical LMR Provider 04/22/17 Maritza Gonzalez MD [address] [address] [email or web address] Historical LMR Provider 04/22/17 Hollie Hood NP [address] [place] [address] Historical LMR Provider 04/22/17 2 Emerita Hsu MD [address] [place] [address] [place] [address] [email or web address] Historical LMR Provider 04/22/17 2 documented as of this encounter Additional Source Comments The information contained in this document represents components of the legal health record. It is not the complete legal health record.[facility]
--- OUTSIDE RECORDS SUMMARY | 2025-03-16 14:18 | XMS_ITS | Encounter Summary ---
Author Organization [facility] Address [address] [address] Phone Care Team Providers Care Internet Marketing Analyst Name Role Phone Nir Neil MD Unavailable [email or web address] Azalea Degroot MD Primary Care Provider [phone] Encounter Details Date Type Department Care Team (Latest Contact Info) Description 08/23/2024 Transcribe Orders Virtual Department 30 [place] [address] Azalea Degroot MD 46 [place] [address] Breast screening (Primary Dx) Social History Tobacco [...] unspecified documented in this encounter Care Teams Internet Marketing Analyst Relationship Specialty Start Date End Date Azalea Degroot MD [address] [place] [address] PCP - General Internal Medicine 03/04/18 Nir Niel MD [email or web address] Historical LMR Provider 04/22/17 documented as of this encounter Additional Source Comments The information contained in this document represents components of the legal health record. It is not the complete legal health record.[facility]
--- OUTSIDE RECORDS SUMMARY | 2025-03-16 14:18 | XMS_ITS | Encounter Summary ---
Author Organization [facility] Address [address] [place] [address] Phone Care Team Providers Care Evaluator Transfer Students Name Role Phone Nir Neil MD Unavailable [email or web address] Maritza Gonzalez MD Unavailable [phone] Hollie Hood LUMBER SALES SUPERVISOR Unavailable [phone] Emerita Hsu MD Unavailable Azalea Degroot MD Primary Care Provider [phone] Encounter Details Date Type Department Care Team (Latest Contact Info) Description 09/14/2019 Ancillary Orders [facility] Orthopedics & Sports Medicine [address] [place] [address] Mariam Stephen PA-C [address] [place] [address] Orthopedics & Sports Medicine, [place] [address] [email or web address] Closed displaced supracondylar fracture of distal end [...] encounter documented in this encounter Care Teams Evaluator Transfer Students Relationship Specialty Start Date End Date Azalea Degroot MD [address] [place] [address] PCP - General Internal Medicine 03/04/18 Nir Neil MD [email or web address] Historical LMR Provider 04/22/17 Maritza Gonzalez MD [address] [place] [address], 2nd [place] [address] [email or web address] Historical LMR Provider 04/22/17 Hollie Hood NP 30 [place] [address] Historical LMR Provider 04/22/17 2 Emerita Hsu MD [address] [place] [address] [address] [place] [address] [email or web address] Historical LMR Provider 04/22/17 2 documented as of this encounter Additional Source Comments The information contained in this document represents components of the legal health record. It is not the complete legal health record.[facility]
--- OUTSIDE RECORDS SUMMARY | 2025-03-16 14:18 | XMS_ITS | Encounter Summary ---
Author Organization [facility] Address [address] [facility] [address] [place] [address] Phone Care Team Providers Care Senior Data Warehouse Architect Name Role Phone Nir Neil MD Unavailable [email or web address] Maritza Gonzalez MD Unavailable [phone] Hollie Hood PROPERTIES SUPERVISOR Unavailable [phone] Emerita Hsu MD Unavailable Azalea Degroot MD Primary Care Provider [phone] Encounter Details Date Type Department Care Team (Late st Contact Info) Description 02/28/2020 Ancillary Orders Virtual Department 30 [place] [address] Azalea Degroot MD 46 [place], [place] [phone] Breast screening Social History Tobacco Use Types [...] and compared with multiple prior studies, most dnugmkmk11/15/2019, with utilization of computer-aided detection. The breasts [...] unspecified documented in this encounter Care Teams Senior Data Warehouse Architect Relationship Specialty Start Date End Date Azalea Degroot MD 46 [place] [address] PCP - General Internal Medicine 03/04/18 Nir Neil MD [email or web address] Historical LMR Provider 04/22/17 Maritza Gonzalez MD 15 [facility], [address] [place] [address] [email or web address] Historical LMR Provider 04/22/17 Hollie Hood NP [address] [place] [address] Historical LMR Provider 04/22/17 2 Emerita Hsu MD [address] [place] [address] [address] [email or web address] Historical LMR Provider 04/22/17 2 documented as of this encounter Additional Source Comments The information contained in this document represents components of the legal health record. It is not the complete legal health record.[facility]
--- OUTSIDE RECORDS SUMMARY | 2025-03-16 14:18 | XMS_ITS | Encounter Summary ---
Author Organization [facility] Address [address] [place] [address] Phone Care Team Providers Care Electronics Repair Technician Name Role Phone Nir Neil MD Unavailable [email or web address] Azalea Degroot MD Primary Care Provider [phone] Encounter Details Date Type Department Care Team (Latest Contact Info) Description 09/02/2024 Ancillary Orders [facility] Orthopedics & Sports Medicine [address] [place] [address] Gabrielle Preciado MD [address] [place] [address] Orthopedics & Sports Medicine, [facility] [place] [address] [email or web address] Calcific tendinitis of left shoulder (Primary [...] note for this date of service. us Gabirelle Preciado MD IMG XR UPPER EXTREMITY Ed ited Result - Final documented in this encounter Visit Diagnoses Diagnosis Rotator cuff impingement syndrome of right shoulder Calcific tendinitis of left shoulder- Primary Rotator cuff impingement syndrome of right shoulder documented in this encounter Care Teams Electronics Repair Technician Relationship Specialty Start Date End Date Azalea Degroot MD [address] [place] [address] PCP - General Internal Medicine 03/04/18 Nir Neil MD [email or web address] Historical LMR Provider 04/22/17 documented as of this encounter Additional Source Comments The information contained in this document represents components of the legal health record. It is not the complete legal health record.[facility]
--- OUTSIDE RECORDS SUMMARY | 2025-03-16 14:18 | XMS_ITS | Clinical Summary ---
Author Organization [facility] Address [address] [place] [address] Phone Care Team Providers Care Fan Balancer Name Role Phone Nir Neil MD Unavailable [email or web address] Azalea Degroot MD Primary Care Provider [phone] Allergies Active Allergy Reactions Criticality Noted Date [...] capsule by mouth daily. 0 Active omega 3-wwp-bzk-fish oil 1,000 mg (120 mg-180 mg) Cap [...] Gm, 1 Refills, Maintenance, 12/27/22 11:23:00 EDT, [facility]/pharmacy #[id number], Partial fill upon patient request if the prescription is for a schedule II opioid drug., 168, c... 3 Active Medication-Free Text CANNABIS GUMMIES, Refills 0, Maintenance, 03/31/23 12:09:00 EDT, Supply 3 Active metoprolol succinate (TOPROL-XL) 25 MG 24 hr tablet Take 25 mg by mouth daily. Active flunisolide 25 mcg (0.025 %) [facility] 2 sprays by Each Nare route every [...] Final Atrial Rate 07/30/[address] Interval 07/30/2018 124 ms Final QRS Duration 07/30/2018 90 ms Final QT Interval 07/30/2018 344 ms Final QTC Interval 07/30/2018 423 ms Final P [place] 07/30/2018 54 degrees Final R Wave [place] 07/30/2018 57 degrees Final T Wave [place] 07/30/2018 23 degrees Final WBC 07/30/2018 8.61 [...] lumbar spondylosis. She may use heat, stretches, etvb-hhk-oruhhkv naproxen sodium 440 mg twice daily as [...] Final Atrial Rate 07/30/[address] Interval 07/30/2018 124 ms Final QRS Duration 07/30/2018 90 ms Final QT Interval 07/30/2018 344 ms Final QTC Interval 07/30/2018 423 ms Final P [place] 07/30/2018 54 degrees Final R Wave [place] 07/30/2018 57 degrees Final T Wave [place] 07/30/2018 23 degrees Final WBC 07/30/2018 8.61 [...] 50% of this 28-minute minute visit in hjwr-uq-pyoi conversation discussing her sacroiliac joint x-ray which [...] evaluation could be done with a shoulder internet database specialist if she desires and if the [...] Final Atrial Rate 07/30/[address] Interval 07/30/2018 124 ms Final QRS Duration 07/30/2018 90 ms Final QT Interval 07/30/2018 344 ms Final QTC Interval 07/30/2018 423 ms Final P [place] 07/30/2018 54 degrees Final R Wave [place] 07/30/2018 57 degrees Final T Wave [place] 07/30/2018 23 degrees Final WBC 07/30/2018 8.61 [...] hospital encounter of 04/14/19 (from the past 92438 hour(s)) DXA Monitoring Narrative CLINICAL HISTORY: + [...] hospital encounter of 04/14/19 (from the past 48793 hour(s)) DXA Monitoring Narrative CLINICAL HISTORY: + [...] Final Atrial Rate 07/30/[address] Interval 07/30/2018 124 ms Final QRS Duration 07/30/2018 90 ms Final QT Interval 07/30/2018 344 ms Final QTC Interval 07/30/2018 423 ms Final P [place] 07/30/2018 54 degrees Final R Wave [place] 07/30/2018 57 degrees Final T Wave [place] 07/30/2018 23 degrees Final WBC 07/30/2018 8.61 [...] hospital encounter of 04/14/19 (from the past 15168 hour(s)) DXA Monitoring Narrative CLINICAL HISTORY: + [...] hospital encounter of 04/14/19 (from the past 43369 hour(s)) DXA Monitoring Narrative CLINICAL HISTORY: + [...] hospital encounter of 04/14/19 (from the past 61193 hour(s)) DXA Monitoring Narrative CLINICAL HISTORY: + [...] - 01/06/2025 11:59 PM EDT Hospital Encounter [address] [place] [address] Azalea Degroot MD Discharge Disposition: Home or Self Care 08/23/2024 Procedure Pass [address] [place] [address] from Last 3 Months Immunizations Immunization Administration [...] this topic Medical Devices Implanted Type Area Resilient Tile Installer Device Identifier Shelf Expiration Date Model / [...] bone mineral density was calculated at 0.598 gm/cu7tzcx a T- score of -2.3 falling within [...] Maintenance Insurance MEDICARE PART A & B [facility] MEDICARE SUPPLEMENT MEDICARE PART A & B [facility] MEDIC[facility]PPLEMENT MEDICARE PART A & B [facility] MEDICARE SUPPLEMENT MEDICARE PART A & B [facility] MEDICARE SUPPLEMENT MEDICARE PART A & B [facility] MEDICARE SUPPLEMENT MEDICARE PART A & B [facility] MEDICARE SUPPLEMENT MEDICARE PART A & B [employer] MEDICARE SUPPLEMENT MEDICARE PART A & B [employer] MEDICARE SUPPLEMENT MEDICARE PART A & B [facility] [employer] [id number] Care Teams Fan Balancer Relationship Specialty Start Date End Date Azalea Degroot MD [address] [place] [address] PCP - General Internal Medicine 03/04/18 Nir Neil MD [email or web address] Historical LMR Provider 04/22/17 Additional Source Comments The information contained in this document represents components of the legal health record. It is not the complete legal health record.[facility]
--- OUTSIDE RECORDS SUMMARY | 2025-03-16 14:18 | XMS_ITS | Encounter Summary ---
Author Organization [facility] Address [address] [place] [address] Phone Care Team Providers Care Rope Making Machine Operator Name Role Phone Nir Neil MD Unavailable [email or web address] [email or web address] Maritza Gonzalez MD Unavailable [phone] Hollie Hood DIAPER FOLDER Unavailable [phone] Emerita Hsu MD Unavailable Azalea Degroot MD Primary Care Provider [phone] Encounter Details Date Type Department Care Team (Late st Contact Info) Description 02/05/2021 Procedure Pass [facility], [address] [address] Social History Tobacco Use Types Packs/Day Years [...] on filedocumented in this encounter Care Teams Rope Making Machine Operator Relationship Specialty Start Date End Date Azalea Degroot MD 46 [place] [address] PCP - General Internal Medicine 03/04/18 Nir Neil MD [email or web address] Historical LMR Provider 04/22/17 Maritza Gonzalez MD [address] [address] Historical LMR Provider 04/22/17 Hollie Hood NP 30 [place] [address] Historical LMR Provider 04/22/17 2 Emerita Hsu MD [address] [place] [address] [address] [email or web address] Historical LMR Provider 04/22/17 2 documented as of this encounter Additional Source Comments The information contained in this document represents components of the legal health record. It is not the complete legal health record.[facility]
--- OUTSIDE RECORDS SUMMARY | 2025-03-16 14:18 | XMS_ITS | Encounter Summary ---
Author Organization [facility] Address [address] [facility] [address] [place] [address] Phone Care Team Providers Care Concrete Rod Buster Name Role Phone Nir Neil MD Unavailable [email or web address] Azalea Degroot MD Primary Care Provider [phone] Encounter Details Date Type Department Care Team (Late st Contact Info) Description 10/02/2021 Procedure Pass [facility], [address] [address] Social History Tobacco Use Types Packs/Day Years [...] on filedocumented in this encounter Care Teams Concrete Rod Buster Relationship Specialty Start Date End Date Azalea Degroot MD [address] [place] [address] PCP - General Internal Medicine 03/04/18 Nir Neil MD [email or web address] Historical LMR Provider 04/22/17 documented as of this encounter Additional Source Comments The information contained in this document represents components of the legal health record. It is not the complete legal health record.[facility]
--- OUTSIDE RECORDS SUMMARY | 2025-03-16 14:18 | XMS_ITS | Encounter Summary ---
Author Organization [facility] Address [address] [facility] [address] [place] [address] Phone Care Team Providers Care Crisis Intervention Counselor Name Role Phone Nir Neil MD Unavailable [email or web address] Maritza Gonzalez MD Unavailable [phone] Hollie Hood LINE DANCER Unavailable [phone] Emerita Hsu MD Unavailable Azalea Degroot MD Primary Care Provider [phone] Encounter Details Date Type Department Care Team (Late st Contact Info) Description 01/25/2019 Ancillary Orders Virtual Department 30 [place] [address] Azalea Degroot MD [address] [place], [place] [id number] Breast screening Social History Tobacco Use Types [...] There are scattered fibroglandular densities. POS - [id number] Narrative 04/20/2019 11:05 AM EDT STUDY: Bilateral [...] There are scattered fibroglandular densities. POS - [id number] Azalea Degroot MD IMG MG EXAMS Final Res ult documented in this encounter Visit Diagnoses Diagnosis Breast screening Breast screening, unspecified Breast screening Breast screening, unspecified documented in this encounter Care Teams Crisis Intervention Counselor Relationship Specialty Start Date End Date Azalea Degroot MD [address] [place] [address] PCP - General Internal Medicine 03/04/18 Nir Neil MD [email or web address] Historical LMR Provider 04/22/17 Maritza Gonzalez MD [address] [address] [email or web address] Historical LMR Provider 04/22/17 Hollie Hood NP [address] [place] [address] Historical LMR Provider 04/22/17 2 Emerita Hsu MD [address] [place] [address] [address] [email or web address] Historical LMR Provider 04/22/17 2 documented as of this encounter Additional Source Comments The information contained in this document represents components of the legal health record. It is not the complete legal health record.[facility]
== END 2025-03-16 11:10 | disposition home or self-care (01) ==
LOC: HO.HMGAL 11:09
PROVIDERS: PCP Internal Medicine; Visit Provider Registered Nurse Emergency
DX: J30.89 Other allergic rhinitis (principal)
CPT/HCPCS: 95117; 95165

== ENCOUNTER 2025-03-30 10:11 | Outpatient (AMB) | payer MEDICARE, OTHER, SELFPAY ==
--- OUTSIDE RECORDS SUMMARY | 2025-03-25 14:00 | XMS_ITS | Encounter Summary ---
Author Organization [facility] Address [address] [facility] [address] [place] [address] Phone Care Team Providers Care Supervisor Film Processing Name Role Phone Nir Neil MD Unavailable [email or web address] Azalea Degroot MD Primary Care Provider [phone] Reason for Visit * Reason Comments Tick Bite ? 5 D ago R Lower le g inner aspect. Was weeding in garden. Had hip replacement. Wants to be careful. Encounter Details Date Type Department Care Team (Late st Contact Info) Description 03/25/2025 2:00 PM EDT Office Visit [facility] at [address] [address] Samira Estes, PECAN PICKER [address] [place] [address] [email or web address] Bitten or stung by nonvenomous insect and other nonvenomous arthropods, initial encounter (Primary Dx) Social History Tobacco Use Types [...] murali e documented as of this encounter Last Filed Vital Signs Vital Sign Reading Time Taken Comments Blood Pressure 94/65 03/25/2025 2:31 PM EDT Pulse 71 03/25/2025 2:31 PM EDT Temperature 36.7 C (98 F) 03/25/2025 2:31 PM EDT Respiratory Rate 18 03/25/2025 2:31 PM EDT Oxygen Saturation 97% 03/25/2025 2:31 PM EDT Inhaled Oxygen Concentration - - Weight - - Height - - Body Mass Index - - documented in this encounter Progress Notes * Samira Estes, IRVIN - 03/25/2025 2:00 PM EDT I obtained verbal consent from the patient or their proxy to record this visit for purposes of producing a draft of the encounter documentation. History of Present Illness 79-year-old female presents with a spot on her leg noticed after gardening. Spot on Leg - Occurred after being in garden - Progressively reddening and slightly bigger - No treatment applied - No fevers, chills, or joint pains - Concerned about infection due to hip replacement history ROS: Per HPI Vitals: 03/25/25 1431 BP: 94/65 Pulse: 71 Resp: 18 Temp: 36.7 ??C (98 ??F) SpO2: 97% Physical Exam General Appearance: Pt not in acute distress. Appearance: Normal appearance. Well-developed. Not ill-appearing. Vital signs: Within normal limits HEENT: Head: Normocephalic and atraumatic. Right Ear: External ear normal. Left Ear: External ear normal. Nose: Nose normal. Respiratory: Normal effort Skin: Solitary excoriated papule on inner medial right lower leg. No spreading erythema, swelling, discharge, or retained tick parts. Neurological: General: No focal deficit present. Mental Status: Alert and oriented to person, place, and time. Psychiatric: Mood normal. Behavior normal. Thought content normal. Judgment normal. Assessment & Plan 1. Insect bite - Apply Neosporin to the affected area to aid healing and prevent infection. - Monitor for significant redness extension or unexplained symptoms such as joint pains, fevers, chills, or headaches, which may indicate potential tick- borne illnesses. Follow-up - If symptoms worsen or new symptoms develop, seek medical evaluation. documented in this encounter Plan of Treatment Not on file documented as of this encounter Visit Diagnoses Diagnosis Bitten or stung by nonvenomous insect and other nonvenomous arthropods, initial encounter- Primary documented in this encounter Care Teams Supervisor Film Processing Relationship Specialty Start Date End Date Azalea Degroot MD [address] [place] [address] PCP - General Internal Medicine 03/04/18 Nir Neil MD [email or web address] Historical LMR Provider 04/22/17 documented as of this encounter Additional Source Comments The information contained in this document represents components of the legal health record. It is not the complete legal health record.[facility]
--- OUTSIDE RECORDS SUMMARY | 2025-03-30 12:27 | XMS_ITS | Encounter Summary ---
Author Organization [facility] Address [address] [place] [address] Phone Care Team Providers Care Equipment Technician Name Role Phone Nir Neil MD Unavailable [email or web address] Azalea Degroot MD Primary Care Provider [phone] Encounter Details Date Type Department Care Team (Late st Contact Info) Description 08/06/2021 Ancillary Orders [facility] Medicine [address] [place] [address] Gabrielle Preciado MD [address] [place] [address] Orthopedics & Sports Medicine, [facility] [place] [address] [email or web address] Social History Tobacco Use Types Packs/Day Years [...] on filedocumented in this encounter Care Teams Equipment Technician Relationship Specialty Start Date End Date Azalea Degroot MD [address] [place] [address] PCP - General Internal Medicine 03/04/18 Nir Neil MD [email or web address] Historical LMR Provider 04/22/17 documented as of this encounter Additional Source Comments The information contained in this document represents components of the legal health record. It is not the complete legal health record.[facility]
--- OUTSIDE RECORDS SUMMARY | 2025-03-30 12:27 | XMS_ITS | Encounter Summary ---
Author Organization [facility] Address [address] [place] [address] [place] [address] Phone Care Team Providers Care Manager Water Name Role Phone Nir Neil MD Unavailable [email or web address] Azalea Degroot MD Primary Care Provider [phone] Encounter Details Date Type Department Care Team (Late st Contact Info) Description 09/11/2023 Procedure Pass [facility], [facility] 30 [place] [address] Social History Tobacco Use Types Packs/Day Years [...] on filedocumented in this encounter Care Teams Manager Water Relationship Specialty Start Date End Date Azalea Degroot MD [address] [place] [address] PCP - General Internal Medicine 03/04/18 Nir Neil MD [email or web address] Historical LMR Provider 04/22/17 documented as of this encounter Additional Source Comments The information contained in this document represents components of the legal health record. It is not the complete legal health record.[facility]
--- OUTSIDE RECORDS SUMMARY | 2025-03-30 12:27 | XMS_ITS | Encounter Summary ---
Author Organization [facility] Address [address] [place] [address] Phone Care Team Providers Care Plaster Mold Maker Name Role Phone Nir Neil MD Unavailable [email or web address] [email or web address] Maritza Gonzalez MD Unavailable [phone] Hollie Hood SHIPPING RECEIVING MANAGER Unavailable [phone] Emerita Hsu MD Unavailable Azalea Degroot MD Primary Care Provider [phone] Encounter Details Date Type Department Care Team (Late st Contact Info) Description 09/26/2020 Procedure Pass [facility], [address] [address] Social History Tobacco Use Types Packs/Day Years [...] on filedocumented in this encounter Care Teams Plaster Mold Maker Relationship Specialty Start Date End Date Azalea Degroot MD [address] [place] [address] PCP - General Internal Medicine 03/04/18 Nir Neil MD [email or web address] Historical LMR Provider 04/22/17 Maritza Gonzalez MD [address] [address] [email or web address] Historical LMR Provider 04/22/17 Hollie Hood NP 30 [place] [address] Historical LMR Provider 04/22/17 2 Emerita Hsu MD [address] [place] [address] [address] [email or web address] Historical LMR Provider 04/22/17 2 documented as of this encounter Additional Source Comments The information contained in this document represents components of the legal health record. It is not the complete legal health record.[facility]
--- OUTSIDE RECORDS SUMMARY | 2025-03-30 12:27 | XMS_ITS | Encounter Summary ---
Author Organization [facility] Address [address] [facility] [address] [place] [address] Phone Care Team Providers Care Web Methods Developer Name Role Phone Nir Neil MD Unavailable [email or web address] Maritza Gonzalez MD Unavailable [phone] Hollie Hood PARTS CLERK Unavailable [phone] Emerita Hsu MD Unavailable Azalea Degroot MD Primary Care Provider [phone] Encounter Details Date Type Department Care Team (Late st Contact Info) Description 02/05/2021 Ancillary Orders Virtual Department 30 [place] [address] Azalea Degroot MD 46 [place], [place] [phone] Breast screening Social History Tobacco Use Types [...] unspecified documented in this encounter Care Teams Web Methods Developer Relationship Specialty Start Date End Date Azalea Degroot MD [address] [place] [address] PCP - General Internal Medicine 03/04/18 Nir Neil MD [email or web address] Historical LMR Provider 04/22/17 Maritza Gonzalez MD [address] [facility], 2nd [place] [address] [email or web address] Historical LMR Provider 04/22/17 Hollie Hood NP [address] [place] [address] Historical LMR Provider 04/22/17 2 Emerita Hsu MD [address] [place] [address] [place] [phone] [email or web address] Historical LMR Provider 04/22/17 2 documented as of this encounter Additional Source Comments The information contained in this document represents components of the legal health record. It is not the complete legal health record.[facility]
--- OUTSIDE RECORDS SUMMARY | 2025-03-30 12:27 | XMS_ITS | Encounter Summary ---
Author Organization [facility] Address [address] [place] [address] Phone Care Team Providers Care Veneer Grader Name Role Phone Nir Neil MD Unavailable [email or web address] Azalea Degroot MD Primary Care Provider [phone] Encounter Details Date Type Department Care Team (Latest Contact Info) Description 09/02/2024 Ancillary Orders [facility] Orthopedics & Sports Medicine [address] [place] [address] Gabrielle Preciado MD [address] [place] [address] Orthopedics & Sports Medicine, [facility] [place] [address] [email or web address] Calcific tendinitis of left shoulder (Primary [...] shoulder documented in this encounter Care Teams Veneer Grader Relationship Specialty Start Date End Date Azalea Degroot MD [address] [place] [address] PCP - General Internal Medicine 03/04/18 Nir Neil MD [email or web address] Historical LMR Provider 04/22/17 documented as of this encounter Additional Source Comments The information contained in this document represents components of the legal health record. It is not the complete legal health record.[facility]
--- OUTSIDE RECORDS SUMMARY | 2025-03-30 12:27 | XMS_ITS | Encounter Summary ---
Author Organization [facility] Address [address] [place] [address] [place] [address] Phone Care Team Providers Care Pharm Tech Name Role Phone Nir Neil MD Unavailable [email or web address] Azalea Degroot MD Primary Care Provider [phone] Encounter Details Date Type Department Care Team (Late st Contact Info) Description 11/05/2023 Procedure Pass [facility] Admitting Dept Virtual Department 30 [place] [address] Social History Tobacco Use Types Packs/Day Years [...] on filedocumented in this encounter Care Teams Pharm Tech Relationship Specialty Start Date End Date Azalea Degroot MD [address] [place], [place] [address] PCP - General Internal Medicine 03/04/18 Nir Neil MD [email or web address] Historical LMR Provider 04/22/17 documented as of this encounter Additional Source Comments The information contained in this document represents components of the legal health record. It is not the complete legal health record.[facility]
--- OUTSIDE RECORDS SUMMARY | 2025-03-30 12:27 | XMS_ITS | Encounter Summary ---
Author Organization [facility] Address [address] [place] [address] Phone Care Team Providers Care Stock Taker Name Role Phone Nir Neil MD Unavailable [email or web address] Azalea Degroot MD Primary Care Provider [phone] Reason for Referral * MRI/CAT Scan - Closed Specialty Diagnoses / Procedures Referred By Princess calloway Referred To Contact Radiology Diagnoses Right hip pain Procedures MRI Hip (Right) Isabel Rico NP [address] [place] [address] Phone: tel: fax: mailto:[email or web address] Referral ID Status Reason Start Date Expiration Date Visits Re quested Visits Authorized [id number] Closed 10/02/2021 10/02/2022 1 1 Encounter Details Date Type Department Care Team (Latest Contact Info) Description 10/02/2021 Transcribe Orders Virtual Department 30 [place] [address] Isabel Rico NP [address] [place] [phone] [email or web address] Right hip pain (Primary Dx) Social History [...] thigh documented in this encounter Care Teams Stock Taker Relationship Specialty Start Date End Date Azalea Degroot MD [address] [place], [place] [address] PCP - General Internal Medicine 03/04/18 Nir Neil MD [email or web address] Historical LMR Provider 04/22/17 documented as of this encounter Additional Source Comments The information contained in this document represents components of the legal health record. It is not the complete legal health record.[facility]
--- OUTSIDE RECORDS SUMMARY | 2025-03-30 12:27 | XMS_ITS | Encounter Summary ---
Author Organization [facility] Address [address] [place] [address] Phone Care Team Providers Care Veneer Lathe Operator Name Role Phone Nir Neil MD Unavailable [email or web address] Maritza Gonzalez MD Unavailable [phone] Hollie Hood NP Unavailable [phone] Emerita Hsu MD Unavailable Emerita Hsu MD Primary Care Provider [phone] Azalea Degroot MD Primary Care Provider [phone] Encounter Details Date Type Department Care Team (Late st Contact Info) Description 10/17/2017 Ancillary Orders Virtual Department 30 [place] [address] Emerita Hsu MD 38 [facility] [address] [place] [phone] [email or web address] Breast screening Social History Tobacco Use [...] unspecified documented in this encounter Care Teams Veneer Lathe Operator Relationship Specialty Start Date End Date Emerita Hsu MD 38 [facility] [address] [phone] [email or web address] PCP - General Family Medicine 05/27/17 03/03/18 Azalea Degroot MD [address] [place] [address] PCP - General Internal Medicine 03/04/18 Nir Neil MD [email or web address] Historical LMR Provider 04/22/17 Maritza Gonzalez MD [address] [place] [address] [email or web address] Historical LMR Provider 04/22/17 Hollie Hood NP [address] [place] [address] Historical LMR Provider 04/22/17 2 Emerita Hsu MD [address] [place] [address] [address] [address] [email or web address] Historical LMR Provider 04/22/17 2 documented as of this encounter Additional Source Comments The information contained in this document represents components of the legal health record. It is not the complete legal health record.[facility]
--- OUTSIDE RECORDS SUMMARY | 2025-03-30 12:27 | XMS_ITS | Encounter Summary ---
Author Organization [facility] Address [address] [facility] [address] [place] [address] Phone Care Team Providers Care Middle School Teacher Name Role Phone Nir Neil MD Unavailable [email or web address] Azalea Degroot MD Primary Care Provider [phone] Encounter Details Date Type Department Care Team (Late st Contact Info) Description 04/15/2023 Procedure Pass [facility], Ct Scan - [facility] 30 [place] [address] Social History Tobacco Use Types Packs/Day Years [...] 10:24 AM EDT Mirtha Burks RN * [place] Suicide Severity Rating Scale (Screener/Recent Self-Report) Question [...] on filedocumented in this encounter Care Teams Middle School Teacher Relationship Specialty Start Date End Date Azalea Degroot MD [address] [place] [address] PCP - General Internal Medicine 03/04/18 Nir Neil MD [email or web address] Historical LMR Provider 04/22/17 documented as of this encounter Additional Source Comments The information contained in this document represents components of the legal health record. It is not the complete legal health record.[facility]
--- OUTSIDE RECORDS SUMMARY | 2025-03-30 12:27 | XMS_ITS | Encounter Summary ---
Author Organization [facility] Address [address] [place] [address] Phone Care Team Providers Care Morale Officer Name Role Phone Nir Neil MD Unavailable [email or web address] Maritza Gonzalez MD Unavailable [phone] Hollie Hood MACHINIST MATE Unavailable [phone] Emerita Hsu MD Unavailable Azalea Degroot MD Primary Care Provider [phone] Encounter Details Date Type Department Care Team (Late st Contact Info) Description 02/05/2021 Procedure Pass [facility], [address] [address] Social History Tobacco Use Types Packs/Day Years [...] on filedocumented in this encounter Care Teams Morale Officer Relationship Specialty Start Date End Date Azalea Degroot MD [address] [place] [address] PCP - General Internal Medicine 03/04/18 Nir Neil MD [email or web address] Historical LMR Provider 04/22/17 Maritza Gonzalez MD [address] [address] [email or web address] Historical LMR Provider 04/22/17 Hollie Hood NP 30 [place] [address] Historical LMR Provider 04/22/17 2 Emerita Hsu MD [address] [place] [address] [address] [email or web address] Historical LMR Provider 04/22/17 2 documented as of this encounter Additional Source Comments The information contained in this document represents components of the legal health record. It is not the complete legal health record.[facility]
--- OUTSIDE RECORDS SUMMARY | 2025-03-30 12:27 | XMS_ITS | Encounter Summary ---
Author Organization [facility] Address [address] [place] [address] [place] [address] Phone Care Team Providers Care Management Recruiter Name Role Phone Nir Neil MD Unavailable [email or web address] Azalea Degroot MD Primary Care Provider [phone] Encounter Details Date Type Department Care Team (Late st Contact Info) Description 08/23/2024 Procedure Pass [address] [place] [address] Social History Tobacco Use Types Packs/Day Years [...] on filedocumented in this encounter Care Teams Management Recruiter Relationship Specialty Start Date End Date Azalea Degroot MD [address] [place], [place] [address] PCP - General Internal Medicine 03/04/18 Nir Neil MD [email or web address] Historical LMR Provider 04/22/17 documented as of this encounter Additional Source Comments The information contained in this document represents components of the legal health record. It is not the complete legal health record.[facility]
--- OUTSIDE RECORDS SUMMARY | 2025-03-30 12:27 | XMS_ITS | Encounter Summary ---
Author Organization [facility] Address [address] [place] [address] Phone Care Team Providers Care Brusher And Shearer Name Role Phone Nir Neil MD Unavailable [email or web address] Azalea Degroot MD Primary Care Provider [phone] Encounter Details Date Type Department Care Team (Latest Contact Info) Description 08/06/2021 Ancillary Orders [address] [address] Gabrielle Preciado MD [address] [place] [address] Orthopedics & Sports [place], [place] [address] [email or web address] Osteoarthritis of right hip, unspecified osteoarthritis [...] on file Not on file Not on murlai e documented as of this encounter Plan [...] type documented in this encounter Care Teams Brusher And Shearer Relationship Specialty Start Date End Date Azalea Degroot MD [address] [place] [address] PCP - General Internal Medicine 03/04/18 Nir Neil MD [email or web address] Historical LMR Provider 04/22/17 documented as of this encounter Additional Source Comments The information contained in this document represents components of the legal health record. It is not the complete legal health record.[facility]
--- OUTSIDE RECORDS SUMMARY | 2025-03-30 12:28 | XMS_ITS | Encounter Summary ---
Author Organization [facility] Address [address] [place] [address] Phone Care Team Providers Care Digester Operator Name Role Phone Nir Neil MD Unavailable [email or web address] Maritza Gonzalez MD Unavailable [phone] Hollie Hood FERTILIZING MACHINE OPERATOR Unavailable [phone] Emerita Hsu MD Unavailable Azalea Degroot MD Primary Care Provider [phone] Encounter Details Date Type Department Care Team (Latest Contact Info) Description 09/14/2019 Ancillary Orders [facility] Orthopedics & Sports Medicine [address] [place] [address] Mariam Stephen PA-C [address] [place] [address] Orthopedics & Sports Medicine, [facility] [place] [address] [email or web address] Closed displaced supracondylar fracture of distal end [...] encounter documented in this encounter Care Teams Digester Operator Relationship Specialty Start Date End Date Azalea Degroot MD [address] [place] [address] PCP - General Internal Medicine 03/04/18 Nir Neil MD [email or web address] Historical LMR Provider 04/22/17 Maritza Gonzalez MD [address] [place] [address], 2nd [place] [address] [email or web address] Historical LMR Provider 04/22/17 Hollie Hood NP 30 [place] [address] Historical LMR Provider 04/22/17 2 Emerita Hsu MD [address] [place] [address] [address] [place] [phone] [email or web address] Historical LMR Provider 04/22/17 2 documented as of this encounter Additional Source Comments The information contained in this document represents components of the legal health record. It is not the complete legal health record.[facility]
--- OUTSIDE RECORDS SUMMARY | 2025-03-30 12:28 | XMS_ITS | Encounter Summary ---
Author Organization [facility] Address [address] [address] Phone Care Team Providers Care Ophthalmic Photographer Name Role Phone Nir Neil MD Unavailable [email or web address] Azalea Degroot MD Primary Care Provider [phone] Encounter Details Date Type Department Care Team (Latest Contact Info) Description 08/23/2024 Transcribe Orders Virtual Department 30 [place] [address] Azalea Degroot MD 46 [place] [address] Breast screening (Primary Dx) Social History Tobacco [...] unspecified documented in this encounter Care Teams Ophthalmic Photographer Relationship Specialty Start Date End Date Azalea Degroot MD [address] [place] [address] PCP - General Internal Medicine 03/04/18 Nir Neil MD [email or web address] Historical LMR Provider 04/22/17 documented as of this encounter Additional Source Comments The information contained in this document represents components of the legal health record. It is not the complete legal health record.[facility]
--- OUTSIDE RECORDS SUMMARY | 2025-03-30 12:28 | XMS_ITS | Encounter Summary ---
Author Organization [facility] Address [address] [place] [address] Phone Care Team Providers Care Electric Razor Assembler Name Role Phone Nir Neil MD Unavailable [email or web address] Maritza Gonzalez MD Unavailable [phone] Hollei Hood NP Unavailable [phone] Emerita Hsu MD Unavailable Azalea Degroot MD Primary Care Provider [phone] Encounter Details Date Type Department Care Team (Late st Contact Info) Description 03/25/2020 Procedure Pass [address] [address] Social History Tobacco Use Types Packs/Day Years [...] on filedocumented in this encounter Care Teams Electric Razor Assembler Relationship Specialty Start Date End Date Azalea Degroot MD 46 [place] [address] PCP - General Internal Medicine 03/04/18 Nir Neil MD [email or web address] Historical LMR Provider 04/22/17 Maritza Gonzalez MD [address] [address] [email or web address] Historical LMR Provider 04/22/17 Hollie Hood NP [address] [place] [address] Historical LMR Provider 04/22/17 2 Emerita Hsu MD [address] [place] [address] [address] [place] [phone] [email or web address] Historical LMR Provider 04/22/17 2 documented as of this encounter Additional Source Comments The information contained in this document represents components of the legal health record. It is not the complete legal health record.[facility]
--- OUTSIDE RECORDS SUMMARY | 2025-03-30 12:28 | XMS_ITS | Encounter Summary ---
Author Organization [facility] Address 399 [facility] [address] [place] [address] Phone Care Team Providers Care Copy Editor Name Role Phone Nir Neil MD Unavailable [email or web address] Maritza Gonzalez MD Unavailable [phone] Hollie Hood CASKET COVERER Unavailable [phone] Emerita Hsu MD Unavailable Azalea Degroot MD Primary Care Provider [phone] Encounter Details Date Type Department Care Team (Late st Contact Info) Description 01/25/2019 Ancillary Orders Virtual Department 30 [place] [address] Azalea Degroot MD 46 [place], [place] [id number] Breast screening Social History Tobacco Use Types [...] There are scattered fibroglandular densities. POS - [id number] Narrative 04/20/2019 11:05 AM EDT STUDY: Bilateral [...] There are scattered fibroglandular densities. POS - [id number] Azalea Degroot MD IMG MG EXAMS Final Res ult documented in this encounter Visit Diagnoses Diagnosis Breast screening Breast screening, unspecified Breast screening Breast screening, unspecified documented in this encounter Care Teams Copy Editor Relationship Specialty Start Date End Date Azalea Degroot MD 46 [place] [address] PCP - General Internal Medicine 03/04/18 Nir Neil MD [email or web address] Historical LMR Provider 04/22/17 Maritza Gonzalez MD [address] [address] [email or web address] Historical LMR Provider 04/22/17 Hollie Hood NP [address] [place] [address] Historical LMR Provider 04/22/17 2 Emerita Hsu MD [address] [place] [address] [address] [email or web address] Historical LMR Provider 04/22/17 2 documented as of this encounter Additional Source Comments The information contained in this document represents components of the legal health record. It is not the complete legal health record.[facility]
--- OUTSIDE RECORDS SUMMARY | 2025-03-30 12:29 | XMS_ITS | Encounter Summary ---
Author Organization [facility] Address 399 [facility] [address] [place] [address] Phone Care Team Providers Care Internal Combustion Engine Assembler Name Role Phone Nir Neil MD Unavailable [email or web address] Maritza Gonzalez MD Unavailable [phone] Hollie Hood ACADEMIC SERVICES PROFESSIONAL Unavailable [phone] Emerita Hsu MD Unavailable Azalea Degroot MD Primary Care Provider [phone] Encounter Details Date Type Department Care Team (Late st Contact Info) Description 02/28/2020 Ancillary Orders Virtual Department 30 [place] [address] Azalea Degroot MD 46 [place], [place] 1056389 Breast screening Social History Tobacco Use Types [...] and compared with multiple prior studies, most cfugpmgu87/15/2019, with utilization of computer-aided detection. The breasts [...] unspecified documented in this encounter Care Teams Internal Combustion Engine Assembler Relationship Specialty Start Date End Date Azalea Degroot MD 46 [place] [address] PCP - General Internal Medicine 03/04/18 Nir Neil MD [email or web address] Historical LMR Provider 04/22/17 Maritza Gonzalez MD 15 [facility], [address] [place] [address] Historical LMR Provider 04/22/17 Hollie Hood NP [address] [place] [address] Historical LMR Provider 04/22/17 2 Emerita Hsu MD [address] [place] [address] [address] [email or web address] Historical LMR Provider 04/22/17 2 documented as of this encounter Additional Source Comments The information contained in this document represents components of the legal health record. It is not the complete legal health record.[facility]
--- OUTSIDE RECORDS SUMMARY | 2025-03-30 12:29 | XMS_ITS | Clinical Summary ---
Author Organization [facility] [place] Address [address] [place] [address] Phone Care Team Providers Care Car Oiler Name Role Phone Nir Neil MD Unavailable [email or web address] Azalea Degroot MD Primary Care Provider [phone] Allergies Active Allergy Reactions Criticality Noted Date [...] capsule by mouth daily. 0 Active omega 8-rqg-aej-fish oil 1,000 mg (120 mg-180 mg) Cap [...] Gm, 1 Refills, Maintenance, 12/27/22 11:23:00 EDT, [facility]/pharmacy #[id number], Partial fill upon patient request if the prescription is for a schedule II opioid drug., 168, c... 3 Active Medication-Free Text CANNABIS GUMMIES, Refills 0, Maintenance, 03/31/23 12:09:00 EDT, Supply 3 Active metoprolol succinate (TOPROL-XL) 25 MG 24 hr tablet Take 25 mg by mouth daily. Active flunisolide 25 mcg (0.025 %) Brumley 2 sprays by Each Nare route every 8 (eight) hours. 25 mL 4 Active Additional Information Patient not taking.Reported on 11/25/2023 amoxicillin (AMOXIL) 500 MG tablet 4 TABS BY MOUTH 1 HOUR PRIOR TO INJECTION 4 Active neomycin-polymyx in B-dexAMETHasone (MAXITROL) 3.5 mg/g-10,000 unit/g-0.1 % Oint 4 Active levothyroxine (SYNTHROID, LEVOTHROID) 100 MCG tablet Take 1 tablet by mouth every morning. 4 Active metoprolol succinate (TOPROL-XL) 25 MG 24 hr tablet Take 25 mg by mouth. 4 Active acyclovir (ZOVIRAX) 400 MG tablet 3 times a day, Maintenance, 02/10/24 8:59:00 AM EDT 4 Active Active Problems Problem Noted Date [...] Final Atrial Rate 07/30/2018 91 BPM Final TN Interval 07/30/2018 124 ms Final QRS Duration 07/30/2018 90 ms Final QT Interval 07/30/2018 344 ms Final QTC Interval 07/30/2018 423 ms Final P [place] 07/30/2018 54 degrees Final R Wave [place] 07/30/2018 57 degrees Final T Wave [place] 07/30/2018 23 degrees Final WBC 07/30/2018 8.61 [...] lumbar spondylosis. She may use heat, stretches, nndu-sac-ptvazuc naproxen sodium 440 mg twice daily as [...] Final Atrial Rate 07/30/2018 91 BPM Final TN Interval 07/30/2018 124 ms Final QRS Duration 07/30/2018 90 ms Final QT Interval 07/30/2018 344 ms Final QTC Interval 07/30/2018 423 ms Final P [place] 07/30/2018 54 degrees Final R Wave [place] 07/30/2018 57 degrees Final T Wave [place] 07/30/2018 23 degrees Final WBC 07/30/2018 8.61 [...] 50% of this 28-minute minute visit in amkq-rh-mket conversation discussing her sacroiliac joint x-ray which [...] evaluation could be done with a shoulder verification specialist if she desires and if the [...] Final Atrial Rate 07/30/2018 91 BPM Final TN Interval 07/30/2018 124 ms Final QRS Duration 07/30/2018 90 ms Final QT Interval 07/30/2018 344 ms Final QTC Interval 07/30/2018 423 ms Final P [place] 07/30/2018 54 degrees Final R Wave [place] 07/30/2018 57 degrees Final T Wave [place] 07/30/2018 23 degrees Final WBC 07/30/2018 8.61 [...] hospital encounter of 04/14/19 (from the past 01508 hour(s)) DXA Monitoring Narrative CLINICAL HISTORY: + [...] hospital encounter of 04/14/19 (from the past 05371 hour(s)) DXA Monitoring Narrative CLINICAL HISTORY: + [...] Final Atrial Rate 07/30/2018 91 BPM Final TN Interval 07/30/2018 124 ms Final QRS Duration 07/30/2018 90 ms Final QT Interval 07/30/2018 344 ms Final QTC Interval 07/30/2018 423 ms Final P [place] 07/30/2018 54 degrees Final R Wave [place] 07/30/2018 57 degrees Final T Wave [place] 07/30/2018 23 degrees Final WBC 07/30/2018 8.61 [...] hospital encounter of 04/14/19 (from the past 65797 hour(s)) DXA Monitoring Narrative CLINICAL HISTORY: + [...] hospital encounter of 04/14/19 (from the past 11947 hour(s)) DXA Monitoring Narrative CLINICAL HISTORY: + [...] hospital encounter of 04/14/19 (from the past 46279 hour(s)) DXA Monitoring Narrative CLINICAL HISTORY: + [...] Another bone densitometry will be planned for 2018. Encounters Date Type Department Care Team Description 03/25/2025 2:00 PM EDT Office Visit [facility] at [address] [address] Samira Estes, IRVIN Bitten or stung by nonvenomous insect and other nonvenomous arthropods, initial encounter (Primary Dx) 01/06/2025 8:56 AM EDT - 01/06/2025 11:59 PM EDT Hospital Encounter [facility] - [address] [place] [address] Azalea Degroot MD Discharge Disposition: Home or Self Care 08/23/2024 Procedure Pass [address] [place] [address] from Last 3 Months Immunizations Immunization Administration [...] VACCINE (1 - 1-dose 75+ series) 2021 INFLUENZA VACCINE (#1) 2025 , 04/02/2023, 05/21/2022, Additional history exists COVID-19 VACCINE ( season) 2025 04/08/2023, 11/15/2021, 04/06/2021, Additional history exists BLOOD PRESSURE 09/22/2025 03/25/2025 Adult Td,Tdap Booster 11/10/2032 11/10/2022 , 01/04/2014, [...] this topic Medical Devices Implanted Type Area Building Energy Retrofit Technician Device Identifier Shelf Expiration Date Model / [...] bone mineral density was calculated at 0.598 gm/fl5ijoi a T- score of -2.3 falling within [...] Maintenance Insurance MEDICARE PART A & B MEDICARE SUPPLEMENT MEDICARE PART A & B MEDICARE SUPPLEMENT MEDICARE PART A & B 5by MEDICARE SUPPLEMENT MEDICARE PART A & B [employer] MEDICARE SUPPLEMENT MEDICARE PART A & B MEDICARE SUPPLEMENT MEDICARE PART A & B Member Subscriber Plan / Payer ( fective 2017-) Name:Lea Rodríguez Member ID:[id number] Relation to Subscriber:Self Name:Lea Rodríguez Subscriber ID:[id number] Payer ID:[id number] Group ID:Not on file Type:Medicare Address: [employer] [id number] [facility] EXTENSION MEDICARE SUPPLEMENT MEDICARE PART A & B [facility] EXTENSION MEDICARE SUPPLEMENT MEDICARE PART A & B Member Subscriber Plan / Payer (Ef fective 2017-Present) Name:Lea Rodríguez Member ID:[id number] Relation to Subscriber:Self Name:Lea Rodríguez Subscriber ID:[id number] Payer ID:[id number] Group ID:Not on file Type:Medicare Address: [employer] [address] [place] [phone] [facility] EXTENSION MEDICARE SUPPLEMENT MEDICARE PART A & B Member Subscriber Plan / Payer (Ef fective 2017-Present) Name:Lea Rodríguez Member ID:[id number] Relation to Subscriber:Self Name:Lea Rodríguez Subscriber ID:[id number] Payer ID:[id number] Group ID:Not on file Type:Medicare Address: [employer] [address] EXTENSION MEDICARE SUPPLEMENT Care Teams Car Oiler Relationship Specialty Start Date End Date Azalea Degroot MD [address] [place] [address] PCP - General Internal Medicine 03/04/18 Nir Neil MD [email or web address] Historical LMR Provider 04/22/17 Additional Source Comments The information contained in this document represents components of the legal health record. It is not the complete legal health record.[facility] [place]
--- OUTSIDE RECORDS SUMMARY | 2025-03-30 12:29 | XMS_ITS | Encounter Summary ---
Author Organization [facility] Address 399 [facility] [address] [place] [address] Phone Care Team Providers Care Structural Steel Detailer Name Role Phone Nir Neil MD Unavailable [email or web address] Azalea Degroot MD Primary Care Provider [phone] Encounter Details Date Type Department Care Team (Late st Contact Info) Description 10/02/2021 Procedure Pass [facility], [address] [address] Social History Tobacco Use Types Packs/Day Years [...] on filedocumented in this encounter Care Teams Structural Steel Detailer Relationship Specialty Start Date End Date Azalea Degroot MD 46 [place] [address] PCP - General Internal Medicine 03/04/18 Nir Neil MD [email or web address] Historical LMR Provider 04/22/17 documented as of this encounter Additional Source Comments The information contained in this document represents components of the legal health record. It is not the complete legal health record.[facility]
== END 2025-03-30 10:23 | disposition home or self-care (01) ==
LOC: HO.HMGAL 10:11
PROVIDERS: PCP Internal Medicine; Visit Provider Registered Nurse Emergency
DX: J30.89 Other allergic rhinitis (principal)
CPT/HCPCS: 95117; 95165

== ENCOUNTER 2025-04-11 11:20 | Outpatient (AMB) | payer MEDICARE, OTHER, SELFPAY | END 2025-04-11 11:32 | disposition home or self-care (01) | LOC: HO.HMGAL 11:20 | PROVIDERS: PCP Internal Medicine; Visit Provider Registered Nurse Emergency | DX: J30.89 Other allergic rhinitis (principal) | CPT/HCPCS: 95117; 95165 ==

== ENCOUNTER 2025-04-27 12:49 | Outpatient (AMB) | payer MEDICARE, OTHER, SELFPAY | END 2025-04-27 13:23 | disposition home or self-care (01) | LOC: HO.HMGAL 12:49 | PROVIDERS: PCP Internal Medicine; Visit Provider Registered Nurse Emergency | DX: J30.89 Other allergic rhinitis (principal) | CPT/HCPCS: 95117; 95165 ==

== ENCOUNTER 2025-05-04 10:41 | Outpatient (AMB) | payer MEDICARE, OTHER, SELFPAY ==
--- OUTSIDE RECORDS SUMMARY | 2025-05-04 13:16 | XMS_ITS | Encounter Summary ---
Author Organization [facility] Address 399 [facility] [address] [place] [address] Phone Care Team Providers Care Sales Operations Director Name Role Phone Nir Neil MD Unavailable [email or web address] Maritza Gonzalez MD Unavailable [phone] Hollie Hood SAP BASIS Unavailable [phone] Emerita Hsu MD Unavailable Azalea Degroot MD Primary Care Provider [phone] Encounter Details Date Type Department Care Team (Late st Contact Info) Description 02/05/2021 Ancillary Orders Virtual Department 30 [place] [address] Azalea Degroot MD 46 [place], [place] [phone] Breast screening Social History Tobacco Use Types [...] unspecified documented in this encounter Care Teams Sales Operations Director Relationship Specialty Start Date End Date Azalea Degroot MD [address] [place] [address] PCP - General Internal Medicine 03/04/18 Nir Neil MD [email or web address] Historical LMR Provider 04/22/17 Maritza Gonzalez MD 15 [facility], 2nd [place] [address] [email or web address] Historical LMR Provider 04/22/17 Hollie Hood NP [address] [place] [address] Historical LMR Provider 04/22/17 2 Emerita Hsu MD [address] [place] [address] [place] [phone] [email or web address] Historical LMR Provider 04/22/17 2 documented as of this encounter Additional Source Comments The information contained in this document represents components of the legal health record. It is not the complete legal health record.[facility]
--- OUTSIDE RECORDS SUMMARY | 2025-05-04 13:16 | XMS_ITS | Encounter Summary ---
Author Organization [facility] Address [address] [place] [address] Phone Care Team Providers Care Dredge Engineer Name Role Phone Nir Neil MD Unavailable [email or web address] Maritza Gonzalez MD Unavailable [phone] Hollie Hood LICENSED JOURNEYMAN ELECTRICIAN Unavailable [phone] Emerita Hsu MD Unavailable Azalea Degroot MD Primary Care Provider [phone] Encounter Details Date Type Department Care Team (Late st Contact Info) Description 09/26/2020 Procedure Pass [facility], [address] [address] Social History Tobacco Use Types Packs/Day Years [...] on filedocumented in this encounter Care Teams Dredge Engineer Relationship Specialty Start Date End Date Azalea Degroot MD 46 [place] [address] PCP - General Internal Medicine 03/04/18 Nir Neil MD [email or web address] Historical LMR Provider 04/22/17 Maritza Gonzalez MD [address] [address] [email or web address] Historical LMR Provider 04/22/17 Hollie Hood NP 30 [place] [address] Historical LMR Provider 04/22/17 2 Emerita Hsu MD [address] [place] [address] [address] [email or web address] Historical LMR Provider 04/22/17 2 documented as of this encounter Additional Source Comments The information contained in this document represents components of the legal health record. It is not the complete legal health record.[facility]
--- OUTSIDE RECORDS SUMMARY | 2025-05-04 13:17 | XMS_ITS | Encounter Summary ---
Author Organization [facility] Address [address] [place] [address] Phone Care Team Providers Care Harbor Pilot Name Role Phone Nir Neil MD Unavailable [email or web address] Maritza Gonzalez MD Unavailable [phone] Hollie Hood NP Unavailable [phone] Emerita Hsu MD Unavailable Emerita Hsu MD Primary Care Provider [phone] Azalea Degroot MD Primary Care Provider [phone] Encounter Details Date Type Department Care Team (Late st Contact Info) Description 10/17/2017 Ancillary Orders Virtual Department 30 [place] [address] Emerita Hsu MD 38 [facility] [address] [place] [phone] [email or web address] Breast screening Social History Tobacco Use [...] unspecified documented in this encounter Care Teams Harbor Pilot Relationship Specialty Start Date End Date Emerita Hsu MD 38 [facility] [address] [phone] [email or web address] PCP - General Family Medicine 05/27/17 03/03/18 Azalea Degroot MD [address] [place] [address] PCP - General Internal Medicine 03/04/18 Nir Neil MD [email or web address] Historical LMR Provider 04/22/17 Maritza Gonzalez MD [address] [place] [address] [email or web address] Historical LMR Provider 04/22/17 Hollie Hood NP [address] [place] [address] Historical LMR Provider 04/22/17 2 Emerita Hsu MD [address] [place] [address] [address] [phone] [email or web address] Historical LMR Provider 04/22/17 2 documented as of this encounter Additional Source Comments The information contained in this document represents components of the legal health record. It is not the complete legal health record.[facility]
--- OUTSIDE RECORDS SUMMARY | 2025-05-04 13:17 | XMS_ITS | Encounter Summary ---
Author Organization [facility] Address [address] [place] [address] [place] [address] Phone Care Team Providers Care Retail Bakery Manager Name Role Phone Nir Neil MD Unavailable [email or web address] Azalea Degroot MD Primary Care Provider [phone] Encounter Details Date Type Department Care Team (Late st Contact Info) Description 09/11/2023 Procedure Pass [facility], [facility] [address] [place] [address] Social History Tobacco Use Types Packs/Day Years [...] on filedocumented in this encounter Care Teams Retail Bakery Manager Relationship Specialty Start Date End Date Azalea Degroot MD [address] [place] [address] PCP - General Internal Medicine 03/04/18 Nir Neil MD [email or web address] Historical LMR Provider 04/22/17 documented as of this encounter Additional Source Comments The information contained in this document represents components of the legal health record. It is not the complete legal health record.[facility]
--- OUTSIDE RECORDS SUMMARY | 2025-05-04 13:17 | XMS_ITS | Encounter Summary ---
Author Organization [facility] Address [address] [facility] [address] [place] [address] Phone Care Team Providers Care Wind Turbine Design Engineer Name Role Phone Nir Neil MD Unavailable [email or web address] Azalea Degroot MD Primary Care Provider [phone] Encounter Details Date Type Department Care Team (Late st Contact Info) Description 04/15/2023 Procedure Pass [facility], Ct Scan - [facility] [address] [place] [address] Social History Tobacco Use Types Packs/Day Years [...] on file Not on file Not on mruali e documented as of this encounter Functional Status * Calculated C-SSRS Risk Score (Lifetime/Recent) Answer Date of Assessment Author No Risk Indicated 04/15/2023 10:24 AM EDT Mirtha Burks RN * [place] Suicide Severity Rating Scale (Screener/Recent Self-Report) Question [...] on filedocumented in this encounter Care Teams Wind Turbine Design Engineer Relationship Specialty Start Date End Date Azalea Degroot MD [address] [place] [address] PCP - General Internal Medicine 03/04/18 iNr Neil MD [email or web address] Historical LMR Provider 04/22/17 documented as of this encounter Additional Source Comments The information contained in this document represents components of the legal health record. It is not the complete legal health record.[facility]
--- OUTSIDE RECORDS SUMMARY | 2025-05-04 13:17 | XMS_ITS | Encounter Summary ---
Author Organization [facility] Address [address] [place] [address] [place] [address] Phone Care Team Providers Care Bronze Chaser Name Role Phone Nir Neil MD Unavailable [email or web address] Azalea Degroot MD Primary Care Provider [phone] Encounter Details Date Type Department Care Team (Late st Contact Info) Description 11/05/2023 Procedure Pass [facility] Admitting [facility] Virtual Department 30 [place] [address] Social History Tobacco Use Types Packs/Day Years [...] Intimate Partner Violence Answer Date R ecorded Denied Basic Needs Not on file 11/04/2023 In the past 12 months have y ou been in a relationship with a person who hurts, threatens, or tries to control you? No 11/04/2023 Worried food would run out Not on file 11/03 In the past 12 months have y [...] on filedocumented in this encounter Care Teams Bronze Chaser Relationship Specialty Start Date End Date Azalea Degroot MD [address] [place] [address] PCP - General Internal Medicine 03/04/18 Nir Neil MD [email or web address] Historical LMR Provider 04/22/17 documented as of this encounter Additional Source Comments The information contained in this document represents components of the legal health record. It is not the complete legal health record.[facility]
--- OUTSIDE RECORDS SUMMARY | 2025-05-04 13:17 | XMS_ITS | Encounter Summary ---
Author Organization [facility] Address [address] [place] [address] Phone Care Team Providers Care Veterinary Livestock Inspector Name Role Phone Nir Neil MD Unavailable [email or web address] Azalea Degroot MD Primary Care Provider [phone] Encounter Details Date Type Department Care Team (Latest Contact Info) Description 08/06/2021 Ancillary Orders [address] [address] Gabrielle Preciado MD [address] [place] [address] [facility] Medicine, [place] [address] [email or web address] Osteoarthritis of right hip, unspecified osteoarthritis [...] type documented in this encounter Care Teams Veterinary Livestock Inspector Relationship Specialty Start Date End Date Azalea Degroot MD [address] [place] [address] PCP - General Internal Medicine 03/04/18 Nir Neil MD [email or web address] Historical LMR Provider 04/22/17 documented as of this encounter Additional Source Comments The information contained in this document represents components of the legal health record. It is not the complete legal health record.[facility]
--- OUTSIDE RECORDS SUMMARY | 2025-05-04 13:17 | XMS_ITS | Encounter Summary ---
Author Organization [facility] Address [address] [place] [address] Phone Care Team Providers Care Launch Leader Name Role Phone Nir Neil MD Unavailable [email or web address] Azalea Degroot MD Primary Care Provider [phone] Encounter Details Date Type Department Care Team (Late st Contact Info) Description 08/06/2021 Ancillary Orders [facility] [address] [place] [address] Gabrielle Preciado MD [address] [place] [address] Orthopedics & Sports Medicine, [facility] [place] [address] [email or web address] Social History Tobacco Use Types Packs/Day Years [...] on filedocumented in this encounter Care Teams Launch Leader Relationship Specialty Start Date End Date Azalea Degroot MD [address] [place] [address] PCP - General Internal Medicine 03/04/18 Nir Neil MD [email or web address] Historical LMR Provider 04/22/17 documented as of this encounter Additional Source Comments The information contained in this document represents components of the legal health record. It is not the complete legal health record.[facility]
--- OUTSIDE RECORDS SUMMARY | 2025-05-04 13:18 | XMS_ITS | Encounter Summary ---
Author Organization [facility] Address [address] [place] [address] Phone Care Team Providers Care Forestry And Wildlife Manager Name Role Phone Nir Neil MD Unavailable [email or web address] Maritza Gonzalez MD Unavailable [phone] Hollie Hood RN [employer] Unavailable [phone] Emerita Hsu MD Unavailable Azalea Degroot MD Primary Care Provider [phone] Encounter Details Date Type Department Care Team (Latest Contact Info) Description 09/14/2019 Ancillary Orders [facility]ics [facility] Sports Medicine [address] [place] [address] Mariam Stephen PA-C [address] [place] [address] Orthopedics & Sports Medicine, [facility] [place] [address] [email or web address] Closed displaced supracondylar fracture of distal end [...] encounter documented in this encounter Care Teams Forestry And Wildlife Manager Relationship Specialty Start Date End Date Azalea Degroot MD [address] [place] [address] PCP - General Internal Medicine 03/04/18 Nir Neil MD [email or web address] Historical LMR Provider 04/22/17 Maritza Gonzalez MD [address] [place] [address], 2nd [place] [address] [email or web address] Historical LMR Provider 04/22/17 Hollie Hood NP 30 [place] [address] Historical LMR Provider 04/22/17 2 Emerita Hsu MD [address] [place] [address] [address] [place] [phone] [email or web address] Historical LMR Provider 04/22/17 2 documented as of this encounter Additional Source Comments The information contained in this document represents components of the legal health record. It is not the complete legal health record.[facility]
--- OUTSIDE RECORDS SUMMARY | 2025-05-04 13:18 | XMS_ITS | Encounter Summary ---
Author Organization [facility] Address [address] [place] [address] Phone Care Team Providers Care Soa Architect Name Role Phone Nir Neil MD Unavailable [email or web address] Azalea Degroot MD Primary Care Provider [phone] Encounter Details Date Type Department Care Team (Latest Contact Info) Description 09/02/2024 Ancillary Orders [facility] Sports Medicine [address] [place] [address] Gabrielle Preciado MD [address] [place] [address] Orthopedics & Sports Medicine, [facility] [place] [address] [email or web address] Calcific tendinitis of left [...] shoulder documented in this encounter Care Teams Soa Architect Relationship Specialty Start Date End Date Azalea Degroot MD [address] [place] [address] PCP - General Internal Medicine 03/04/18 Nir Neil MD [email or web address] Historical LMR Provider 04/22/17 documented as of this encounter Additional Source Comments The information contained in this document represents components of the legal health record. It is not the complete legal health record.[facility]
--- OUTSIDE RECORDS SUMMARY | 2025-05-04 13:18 | XMS_ITS | Encounter Summary ---
Author Organization [facility] Address [address] [facility] [address] [place] [address] Phone Care Team Providers Care Software Design Engineer Name Role Phone Nir Neil MD Unavailable [email or web address] Maritza Gonzalez MD Unavailable [phone] Hollie Hood DIRECTOR OF INFORMATICS Unavailable [phone] Emerita Hsu MD Unavailable Azalea Degroot MD Primary Care Provider [phone] Encounter Details Date Type Department Care Team (Late st Contact Info) Description 01/25/2019 Ancillary Orders Virtual Department 30 [place] [address] Azalea Degroot MD [address] [place], [place] [address] Breast screening Social History Tobacco Use Types [...] There are scattered fibroglandular densities. POS - [id number] Narrative 04/20/2019 11:05 AM EDT STUDY: Bilateral [...] There are scattered fibroglandular densities. POS - [id number] Azalea Degroot MD IMG MG EXAMS Final Res ult documented in this encounter Visit Diagnoses Diagnosis Breast screening Breast screening, unspecified Breast screening Breast screening, unspecified documented in this encounter Care Teams Software Design Engineer Relationship Specialty Start Date End Date Azalea Degroot MD [address] [place] [address] PCP - General Internal Medicine 03/04/18 Nir Neil MD [email or web address] Historical LMR Provider 04/22/17 Maritza Gonzalez MD [address] [address] [email or web address] Historical LMR Provider 04/22/17 Hollie Hood NP [address] [place] [address] Historical LMR Provider 04/22/17 2 Emerita Hsu MD [address] [place] [address] [address] [email or web address] Historical LMR Provider 04/22/17 2 documented as of this encounter Additional Source Comments The information contained in this document represents components of the legal health record. It is not the complete legal health record.[facility]
--- OUTSIDE RECORDS SUMMARY | 2025-05-04 13:18 | XMS_ITS | Encounter Summary ---
Author Organization [facility] Address [address] [place] [address] Phone Care Team Providers Care Director Check Name Role Phone Nir Neil MD Unavailable [email or web address] Maritza Gonzalez MD Unavailable [phone] Hollie Hood NP Unavailable [phone] Emerita Hsu MD Unavailable Azalea Degroot MD Primary Care Provider [phone] Encounter Details Date Type Department Care Team (Late st Contact Info) Description 03/25/2020 Procedure Pass [address] [address] Social History Tobacco Use Types Packs/Day Years [...] on filedocumented in this encounter Care Teams Director Check Relationship Specialty Start Date End Date Azalea Degroot MD [address] [place] [address] PCP - General Internal Medicine 03/04/18 Nir Neil MD [email or web address] Historical LMR Provider 04/22/17 Maritza Gonzalez MD [address] [address] [email or web address] Historical LMR Provider 04/22/17 Hollie Hood NP [address] [place] [address] Historical LMR Provider 04/22/17 2 Emerita Hsu MD [address] [place] [address] [place] [address] [email or web address] Historical LMR Provider 04/22/17 2 documented as of this encounter Additional Source Comments The information contained in this document represents components of the legal health record. It is not the complete legal health record.[facility]
--- OUTSIDE RECORDS SUMMARY | 2025-05-04 13:18 | XMS_ITS | Encounter Summary ---
Author Organization [facility] Address [address] [place] [address] Phone Care Team Providers Care Master Control Engineer Name Role Phone Nir Neil MD Unavailable [email or web address] Maritza Gonzalez MD Unavailable [phone] Hollie Hood PLANT SCIENCES PROFESSOR Unavailable [phone] Emerita Hsu MD Unavailable Azalea Degroot MD Primary Care Provider [phone] Encounter Details Date Type Department Care Team (Late st Contact Info) Description 02/05/2021 Procedure Pass [facility], [address] [address] Social History Tobacco Use Types Packs/Day Years [...] on filedocumented in this encounter Care Teams Master Control Engineer Relationship Specialty Start Date End Date Azalea Degroot MD [address] [place] [address] PCP - General Internal Medicine 03/04/18 Nir Neil MD [email or web address] Historical LMR Provider 04/22/17 Maritza Gonzalez MD [address] [address] [email or web address] Historical LMR Provider 04/22/17 Hollie Hood NP 30 [place] [address] Historical LMR Provider 04/22/17 2 Emerita Hsu MD [address] [place] [address] [address] [email or web address] Historical LMR Provider 04/22/17 2 documented as of this encounter Additional Source Comments The information contained in this document represents components of the legal health record. It is not the complete legal health record.[facility]
--- OUTSIDE RECORDS SUMMARY | 2025-05-04 13:18 | XMS_ITS | Encounter Summary ---
Author Organization [facility] Address [address] [place] [address] Phone Care Team Providers Care Planting Machine Operator Name Role Phone Nir Neil MD Unavailable [email or web address] Azalea Degroot MD Primary Care Provider [phone] Reason for Referral * MRI/CAT Scan - Closed Specialty Diagnoses / Procedures Referred By Princess calloway Referred To Contact Radiology Diagnoses Right hip pain Procedures MRI Hip (Right) Isabel Rico NP [address] [place] [address] Phone: tel: fax: [email or web address] Referral ID Status Reason Start Date Expiration Date Visits Re quested Visits Authorized [id number] Closed 10/02/2021 10/02/2022 1 1 Encounter Details Date Type Department Care Team (Latest Contact Info) Description 10/02/2021 Transcribe Orders Virtual Department 30 [place] [address] Isabel Rico NP [address] [place] [phone] [email or web address] Right hip pain (Primary Dx) Social History [...] thigh documented in this encounter Care Teams Planting Machine Operator Relationship Specialty Start Date End Date Azalea Degroot MD [address] [place], [place] [address] PCP - General Internal Medicine 03/04/18 Nir Neil MD [email or web address] Historical LMR Provider 04/22/17 documented as of this encounter Additional Source Comments The information contained in this document represents components of the legal health record. It is not the complete legal health record.[facility]
--- OUTSIDE RECORDS SUMMARY | 2025-05-04 13:18 | XMS_ITS | Encounter Summary ---
Author Organization [facility] Address [address] [address] Phone Care Team Providers Care Reimbursement Representative Name Role Phone Nir Neil MD Unavailable [email or web address] Azalea Degroot MD Primary Care Provider [phone] Encounter Details Date Type Department Care Team (Latest Contact Info) Description 08/23/2024 Transcribe Orders Virtual Department 30 [place] [address] Azalea Degroot MD [address] [place] [address] Breast screening (Primary Dx) Social History Tobacco [...] unspecified documented in this encounter Care Teams Reimbursement Representative Relationship Specialty Start Date End Date Azalea Degroot MD [address] [place], [place] [address] PCP - General Internal Medicine 03/04/18 Nir Neil MD [email or web address] Historical LMR Provider 04/22/17 documented as of this encounter Additional Source Comments The information contained in this document represents components of the legal health record. It is not the complete legal health record.[facility]
--- OUTSIDE RECORDS SUMMARY | 2025-05-04 13:18 | XMS_ITS | Encounter Summary ---
Author Organization [facility] Address [address] [place] [address] [place] [address] Phone Care Team Providers Care Production Lead Name Role Phone Nir Neil MD Unavailable [email or web address] Azalea Degroot MD Primary Care Provider [phone] Encounter Details Date Type Department Care Team (Late st Contact Info) Description 08/23/2024 Procedure Pass [address] [place] [address] Social History Tobacco Use Types Packs/Day Years [...] on filedocumented in this encounter Care Teams Production Lead Relationship Specialty Start Date End Date Azalea Degroot MD [address] [place] [address] PCP - General Internal Medicine 03/04/18 Nir Neil MD [email or web address] Historical LMR Provider 04/22/17 documented as of this encounter Additional Source Comments The information contained in this document represents components of the legal health record. It is not the complete legal health record.[facility]
--- OUTSIDE RECORDS SUMMARY | 2025-05-04 13:19 | XMS_ITS | Encounter Summary ---
Author Organization [facility] Address [address] [facility] [address] [place] [address] Phone Care Team Providers Care Aluminum Siding Applicator Name Role Phone Nir Neil MD Unavailable [email or web address] Azalea Degroot MD Primary Care Provider [phone] Encounter Details Date Type Department Care Team (Late st Contact Info) Description 10/02/2021 Procedure Pass [facility], [address] [address] Social History Tobacco Use Types Packs/Day Years [...] on filedocumented in this encounter Care Teams Aluminum Siding Applicator Relationship Specialty Start Date End Date Azalea Degroot MD [address] [place] [address] PCP - General Internal Medicine 03/04/18 Nir Neil MD [email or web address] Historical LMR Provider 04/22/17 documented as of this encounter Additional Source Comments The information contained in this document represents components of the legal health record. It is not the complete legal health record.[facility]
--- OUTSIDE RECORDS SUMMARY | 2025-05-04 13:19 | XMS_ITS | Encounter Summary ---
Author Organization [facility] Address [address] [facility] [address] [place] [address] Phone Care Team Providers Care Pattern Marker Name Role Phone Nir Neil MD Unavailable [email or web address] Maritza Gonzalez MD Unavailable [phone] Hollie Hood SUPERVISOR WATER TREATMENT PLANT Unavailable [phone] Emerita Hsu MD Unavailable Azalea Degroot MD Primary Care Provider [phone] Encounter Details Date Type Department Care Team (Late st Contact Info) Description 02/28/2020 Ancillary Orders Virtual Department 30 [place] [address] Azalea Degroot MD [address] [place], [place] 0750489 Breast screening Social History Tobacco Use Types [...] and compared with multiple prior studies, most nnyafjdd51/15/2019, with utilization of computer-aided detection. The breasts [...] unspecified documented in this encounter Care Teams Pattern Marker Relationship Specialty Start Date End Date Azalea Degroot MD [address] [place] [address] PCP - General Internal Medicine 03/04/18 Nir Neil MD [email or web address] Historical LMR Provider 04/22/17 Maritza Gonzalez MD 15 [facility], [address] [place] [address] [email or web address] Historical LMR Provider 04/22/17 Hollie Hood NP [address] [place] [address] Historical LMR Provider 04/22/17 2 Emerita Hsu MD [address] [place] [address] [address] [email or web address] Historical LMR Provider 04/22/17 2 documented as of this encounter Additional Source Comments The information contained in this document represents components of the legal health record. It is not the complete legal health record.[facility]
--- OUTSIDE RECORDS SUMMARY | 2025-05-04 13:19 | XMS_ITS | Clinical Summary ---
Author Organization [facility] Address [address] [place] [address] Phone Care Team Providers Care An/Ssn 2 4 Operator Name Role Phone Nir Neil MD Unavailable [email or web address] Azalea Degroot MD Primary Care Provider [phone] Allergies Active Allergy Reactions Criticality Noted Date [...] capsule by mouth daily. 0 Active omega 2-zfo-rrw-fish oil 1,000 mg (120 mg-180 mg) Cap [...] Gm, 1 Refills, Maintenance, 12/27/22 11:23:00 EDT, [facility]/pharmacy #[id number], Partial fill upon patient request if the prescription is for a schedule II opioid drug., 168, c... 3 Active Medication-Free Text CANNABIS GUMMIES, Refills 0, Maintenance, 03/31/23 12:09:00 EDT, Supply 3 Active metoprolol succinate (TOPROL-XL) 25 MG 24 hr tablet Take 25 mg by mouth daily. Active flunisolide 25 mcg (0.025 %) [place] 2 sprays by Each Nare route every [...] Final Atrial Rate 07/30/2018 91 BPM Final MA Interval 07/30/2018 124 ms Final QRS Duration 07/30/2018 90 ms Final QT Interval 07/30/2018 344 ms Final QTC Interval 07/30/2018 423 ms Final P [place] 07/30/2018 54 degrees Final R Wave [place] 07/30/2018 57 degrees Final T Wave [place] 07/30/2018 23 degrees Final WBC 07/30/2018 8.61 [...] lumbar spondylosis. She may use heat, stretches, lnty-laf-pxzgeni naproxen sodium 440 mg twice daily as [...] Final Atrial Rate 07/30/2018 91 BPM Final MA Interval 07/30/2018 124 ms Final QRS Duration 07/30/2018 90 ms Final QT Interval 07/30/2018 344 ms Final QTC Interval 07/30/2018 423 ms Final P [place] 07/30/2018 54 degrees Final R Wave [place] 07/30/2018 57 degrees Final T Wave [place] 07/30/2018 23 degrees Final WBC 07/30/2018 8.61 [...] 50% of this 28-minute minute visit in bkvy-re-dojo conversation discussing her sacroiliac joint x-ray which [...] evaluation could be done with a shoulder division operations specialist if she desires and if the [...] Final Atrial Rate 07/30/2018 91 BPM Final MA Interval 07/30/2018 124 ms Final QRS Duration 07/30/2018 90 ms Final QT Interval 07/30/2018 344 ms Final QTC Interval 07/30/2018 423 ms Final P [place] 07/30/2018 54 degrees Final R Wave [place] 07/30/2018 57 degrees Final T Wave [place] 07/30/2018 23 degrees Final WBC 07/30/2018 8.61 [...] hospital encounter of 04/14/19 (from the past 97111 hour(s)) DXA Monitoring Narrative CLINICAL HISTORY: + [...] hospital encounter of 04/14/19 (from the past 87068 hour(s)) DXA Monitoring Narrative CLINICAL HISTORY: + [...] Final Atrial Rate 07/30/2018 91 BPM Final MA Interval 07/30/2018 124 ms Final QRS Duration 07/30/2018 90 ms Final QT Interval 07/30/2018 344 ms Final QTC Interval 07/30/2018 423 ms Final P [place] 07/30/2018 54 degrees Final R Wave [place] 07/30/2018 57 degrees Final T Wave [place] 07/30/2018 23 degrees Final WBC 07/30/2018 8.61 [...] hospital encounter of 04/14/19 (from the past 38144 hour(s)) DXA Monitoring Narrative CLINICAL HISTORY: + [...] hospital encounter of 04/14/19 (from the past 06976 hour(s)) DXA Monitoring Narrative CLINICAL HISTORY: + [...] hospital encounter of 04/14/19 (from the past 88007 hour(s)) DXA Monitoring Narrative CLINICAL HISTORY: + [...] Encounters Date Type Department Care Team Description 03/30/2025 1:10 PM EDT Office Visit [facility] at [address] [address] Elisha Coulter CNP Foreign body of right lower leg, subsequent encounter (Primary Dx) 03/25/2025 2:00 PM EDT Office Visit [facility] at [address] [address] aSmira Estes CNP Bitten or stung by nonvenomous insect and other nonvenomous arthropods, initial encounter (Primary Dx) from Last 3 Months Immunizations Immunization Administration [...] Sign Reading Time Taken Comments Blood Pressure 134/80 03/30/2025 1:15 PM EDT Pulse 76 03/30/2025 1:15 PM EDT Temperature 36.4 C (97.6 F) 03/30/2025 1:15 PM EDT Respiratory Rate 18 03/30/2025 1:15 PM EDT Oxygen Saturation 99% 03/30/2025 1:15 PM EDT Inhaled Oxygen Concentration - - [...] 11/15/2021, 04/06/2021, Additional history exists BLOOD PRESSURE 09/27/2025 03/30/2025 Adult Td,Tdap Booster 11/10/2032 11/10/2022 , 01/04/2014, 07/03/2004 PNEUMOCOCCAL VACCINES (50+ years) Completed 01/23/2015, 12/28/2012 HEPATITIS A VACCINES Aged Out 06/18/2016 No long er eligible based on patient's age to complete this topic ZOSTER VACCINES Completed 09/29/2018, 07/07, 01/28/2011 OSTEOPOROSIS SCREENING INITIAL (ONE-TIME) Completed 06/21/2021, 04/14/2019 SMOKING STATUS SCREENING (Once After 26 Yrs) Completed 03/30/2025 HIB VACCINES Aged Out No longer eligi ble based on patient's age to complete this topic MENINGOCOCCAL VACCINES (ACWY) Aged Out No longer eligible based on patient's age to complete this topic MENINGOCOCCAL VACCINES (B) Aged Out N o longer eligible based on patient's age to complete this topic Medical Devices Implanted Type Area Cigarette Carton Sealer Device Identifier Shelf Expiration Date Model / Serial / Lot Right Hip Hardware Procedures Procedure Name Priority Date/Time Associated Diagnosis Comments WOUND CULTURE/SMEAR Routine 03/30/2025 1 :29 PM EDT Foreign body of right lower leg, subsequent encounter FOREIGN BODY REMOVAL Routine 03/30/2025 1:25 PM EDT Foreign body of right lower leg, subsequent encounter BD DXA AXIAL (SPINE) WITH HIP Routine 06/21/2021 2:11 PM EST Osteopenia, unspecified location from Last 3 Months or Most Recently Relevant to Health Maintenance Results * Wound culture/smear (03/30/2025 1:29 PM EDT) Special Requests None 03/30/2025 1:29 PM EDT [facility] GRAM STAIN NO CELLS OR ORGANISMS 03/31/2025 10:33 AM EDT [facility] Wound Culture/Smear NO GROWTH 48HRS 04/01/2025 1:47 PM EDT [facility] Other (Skin) 03/30/2025 1:29 PM EDT 03/30/2025 4:56 PM EDT Comment:S P REMOVAL PIECE ST IFF GRASS SCANT AMT PUS us Elisha Coulter CNP MICROBIOLOGY - GENERAL ORDE EBER Final Result [facility] [address] [place] [address] * FOREIGN BODY REMOVAL (03/30/2025 1:25 PM EDT) Other Narrative Elisha Coulter CNP - 03/30/2025 1:25 PM EDT Elisha Coulter CNP 03/30/2025 1:37 PM Foreign Body Removal Date/Time: 03/30/2025 1:25 PM Performed by: Elisha Coulter CNP Authorized by: Elisha Coulter CNP Location: Body area: Skin General location: Lower extremity Location details: Right lower leg Patient sedated?: No Procedure Details: Tendon involvement: None Localization method: Visualized Removal mechanism: Forceps Dressing: Antibiotic ointment and dressing applied Depth: Subcutaneous Complexity: Simple Objects recovered (#): 1 Objects recovered: Piece stiff grass Post-procedure assessment: Foreign body removed Patient tolerance: Patient tolerated the procedure well with no immediate complicationsComments: Bacitracin and Band-Aid applied Elisha Coulter CNP PROCEDURE/MINOR SURGICAL OR DERABLES Final Result * BD DXA AXIAL (SPINE) WITH HIP [...] bone mineral density was calculated at 0.598 gm/lo9ukts a T- score of -2.3 falling within [...] Maintenance Insurance MEDICARE PART A & B Member Subscriber Plan / Payer (Ef fective 2017-Present) Name:Lea Rodríguez Member ID:[id number] Relation to Subscriber:Self Name:Lea Rodríguez Subscriber ID:[id number] Payer ID:[id number] Group ID:Not on file Type:Medicare Address: [employer] [address] [place] [phone] [place] [address] EXTENSION MEDICARE SUPPLEMENT MEDICARE PART A & B [facility] EXTENSION MEDICARE SUPPLEMENT MEDICARE PART A & B [employer] MEDICARE SUPPLEMENT MEDICARE PART A & B [employer] MEDICARE SUPPLEMENT MEDICARE PART A & B [facility] MEDICARE SUPPLEMENT MEDICARE PART A & B [email or web address] EXTENSION MEDICARE SUPPLEMENT MEDICARE PART A & B [email or web address] [employer] MEDICARE SUPPLEMENT MEDICARE PART A & B Member Subscriber Plan / Payer ( fective 2017-) Name:Lea Rodríguez Member ID:[id number] Relation to Subscriber:Self Name:Lea Rodríguez Subscriber ID:[id number] Payer ID:[id number] Group ID:Not on file Type:Medicare Address: [employer] [address] [place] [address] [place] [address] EXTENSION MEDICARE SUPPLEMENT MEDICARE PART A & B [facility] EXTENSION MEDICARE SUPPLEMENT Care Teams An/Ssn 2 4 Operator Relationship Specialty Start Date End Date Azalea Degroot MD [address] [place] [address] [id number] PCP - General Internal Medicine 03/04/18 Nir Neil MD [email or web address] Historical LMR Provider 04/22/17 Additional Source Comments The information contained in this document represents components of the legal health record. It is not the complete legal health record.[facility]
== END 2025-05-04 10:41 | disposition home or self-care (01) ==
LOC: HO.HMGAL 10:41
PROVIDERS: PCP Internal Medicine; Visit Provider Registered Nurse Emergency
DX: J30.89 Other allergic rhinitis (principal)
CPT/HCPCS: 95117; 95165

== ENCOUNTER 2025-05-11 09:36 | Outpatient (AMB) | payer MEDICARE, OTHER, SELFPAY ==
--- OUTSIDE RECORDS SUMMARY | 2025-05-11 10:44 | XMS_ITS | Encounter Summary ---
Author Organization [facility] Address [address] [place] [address] Phone Care Team Providers Care Cooker Sulfite Name Role Phone Nir Neil MD Unavailable [email or web address] Maritza Gonzalez MD Unavailable [phone] Hollie Hood TRANSPORT MEDIC Unavailable [phone] Emerita Hsu MD Unavailable Azalea Degroot MD Primary Care Provider [phone] Encounter Details Date Type Department Care Team (Late st Contact Info) Description 09/26/2020 Procedure Pass [facility], [address] [address] Social History Tobacco Use Types Packs/Day Years [...] on filedocumented in this encounter Care Teams Cooker Sulfite Relationship Specialty Start Date End Date Azalea Degroot MD [address] [place] [address] PCP - General Internal Medicine 03/04/18 Nir Neil MD [email or web address] Historical LMR Provider 04/22/17 Maritza Gonzalez MD [address] [address] [email or web address] Historical LMR Provider 04/22/17 Hollie Hood NP [address] [place] [address] Historical LMR Provider 04/22/17 2 Emerita Hsu MD [address] [place] [address] [address] [email or web address] Historical LMR Provider 04/22/17 2 documented as of this encounter Additional Source Comments The information contained in this document represents components of the legal health record. It is not the complete legal health record.[facility]
--- OUTSIDE RECORDS SUMMARY | 2025-05-11 10:44 | XMS_ITS | Encounter Summary ---
Author Organization [facility] Address [address] [place] [address] [place] [address] Phone Care Team Providers Care Brick Setter Name Role Phone Nir Neil MD Unavailable [email or web address] Azalea Degroot MD Primary Care Provider [phone] Encounter Details Date Type Department Care Team (Late st Contact Info) Description 11/05/2023 Procedure Pass [facility]oscopy Admitting Dept Virtual Department [address] [place] [address] Social History Tobacco Use Types Packs/Day Years Used Date Smoking Tobacco: Never Passive Smoke Exposure: Never Smokeless Tobacco: Never Alcohol Use Standard Drinks/Week Comments Yes 1 (1 standard drink = 0.6 oz pur e alcohol) occasionally 1-2x/wk Education Answer Date Recorded Are you interested in more education? Not on umrali e 11/01/2022 Are you concerned about learning? [...] on filedocumented in this encounter Care Teams Brick Setter Relationship Specialty Start Date End Date Azalea Degroot MD [address] [place] [address] PCP - General Internal Medicine 03/04/18 Nir Neil MD [email or web address] Historical LMR Provider 04/22/17 documented as of this encounter Additional Source Comments The information contained in this document represents components of the legal health record. It is not the complete legal health record.[facility]
--- OUTSIDE RECORDS SUMMARY | 2025-05-11 10:44 | XMS_ITS | Encounter Summary ---
Author Organization [facility] Address [address] [facility] [address] [place] [address] Phone Care Team Providers Care Registered Nurse Cardiovascular Icu Name Role Phone Nir Neil MD Unavailable [email or web address] Azalea Degroot MD Primary Care Provider [phone] Encounter Details Date Type Department Care Team (Late st Contact Info) Description 04/15/2023 Procedure Pass [facility], [facility] [address] [place] [address] Social History Tobacco Use Types Packs/Day Years [...] No Risk Indicated 04/15/2023 10:24 AM EDT Mritha Burks RN * Falls Suicide Severity Rating Scale (Screener/Recent Self-Report) Question [...] on filedocumented in this encounter Care Teams Registered Nurse Cardiovascular Icu Relationship Specialty Start Date End Date Azalea Degroot MD [address] [place] [address] PCP - General Internal Medicine 03/04/18 Nir Neil MD [email or web address] Historical LMR Provider 04/22/17 documented as of this encounter Additional Source Comments The information contained in this document represents components of the legal health record. It is not the complete legal health record.[facility]
--- OUTSIDE RECORDS SUMMARY | 2025-05-11 10:44 | XMS_ITS | Encounter Summary ---
Author Organization [facility] Address [address] [facility] [address] [place] [address] Phone Care Team Providers Care Custom Stock Maker Name Role Phone Nir Neil MD Unavailable [email or web address] Maritza Gonzalez MD Unavailable [phone] Hollie Hood BEHAVIOR ANALYST Unavailable [phone] Emerita Hsu MD Unavailable Azalea Degroot MD Primary Care Provider [phone] Encounter Details Date Type Department Care Team (Late st Contact Info) Description 02/05/2021 Ancillary Orders Virtual Department 30 [place] [address] Azalea Degroot MD [address] [place], [place] [phone] Breast screening Social History Tobacco Use Types [...] mruali e documented as of this encounter Plan [...] unspecified documented in this encounter Care Teams Custom Stock Maker Relationship Specialty Start Date End Date Azalea Degroot MD [address] [place] [address] PCP - General Internal Medicine 03/04/18 Nir Neil MD [email or web address] Historical LMR Provider 04/22/17 Maritza Gonzalez MD 15 [facility], 2nd [place] [address] Historical LMR Provider 04/22/17 Hollie Hood NP [address] [place] [address] Historical LMR Provider 04/22/17 2 Emerita Hsu MD [address] [place] [address] [place] [id number] [email or web address] Historical LMR Provider 04/22/17 2 documented as of this encounter Additional Source Comments The information contained in this document represents components of the legal health record. It is not the complete legal health record.[facility]
--- OUTSIDE RECORDS SUMMARY | 2025-05-11 10:44 | XMS_ITS | Encounter Summary ---
Author Organization [facility] Address [address] [place] [address] [place] [address] Phone Care Team Providers Care Sports Reporter Name Role Phone Nir Neil MD Unavailable [email or web address] Azalea Degroot MD Primary Care Provider [phone] Encounter Details Date Type Department Care Team (Late st Contact Info) Description 09/11/2023 Procedure Pass [facility], [facility] [address] [place] [address] Social History Tobacco Use Types Packs/Day Years [...] on filedocumented in this encounter Care Teams Sports Reporter Relationship Specialty Start Date End Date Azalea Degroot MD [address] [place] [address] PCP - General Internal Medicine 03/04/18 Nir Neil MD [email or web address] Historical LMR Provider 04/22/17 documented as of this encounter Additional Source Comments The information contained in this document represents components of the legal health record. It is not the complete legal health record.[facility]
--- OUTSIDE RECORDS SUMMARY | 2025-05-11 10:45 | XMS_ITS | Encounter Summary ---
Author Organization [facility] Address [address] [place] [address] Phone Care Team Providers Care Bonsai Tender Name Role Phone Nir Neil MD Unavailable [email or web address] Azalea Degroot MD Primary Care Provider [phone] Encounter Details Date Type Department Care Team (Latest Contact Info) Description 08/06/2021 Ancillary Orders [address] [address] Gabrielle Preciado MD [address] [place] [address] [facility], [place] [address] [email or web address] Osteoarthritis of right hip, unspecified osteoarthritis [...] type documented in this encounter Care Teams Bonsai Tender Relationship Specialty Start Date End Date Azalea Degroot MD [address] [place] [address] PCP - General Internal Medicine 03/04/18 Nir Neil MD [email or web address] Historical LMR Provider 04/22/17 documented as of this encounter Additional Source Comments The information contained in this document represents components of the legal health record. It is not the complete legal health record.[facility]
--- OUTSIDE RECORDS SUMMARY | 2025-05-11 10:45 | XMS_ITS | Encounter Summary ---
Author Organization [facility] Address [address] [place] [address] [place] [address] Phone Care Team Providers Care Meter Reader Name Role Phone Nir Neil MD Unavailable [email or web address] Azalea Degroot MD Primary Care Provider [phone] Encounter Details Date Type Department Care Team (Late st Contact Info) Description 08/23/2024 Procedure Pass [address] [place] [address] Social History Tobacco Use Types Packs/Day Years [...] on filedocumented in this encounter Care Teams Meter Reader Relationship Specialty Start Date End Date Azalea Degroot MD [address] [place] [address] PCP - General Internal Medicine 03/04/18 Nir Neil MD [email or web address] Historical LMR Provider 04/22/17 documented as of this encounter Additional Source Comments The information contained in this document represents components of the legal health record. It is not the complete legal health record.[facility]
--- OUTSIDE RECORDS SUMMARY | 2025-05-11 10:45 | XMS_ITS | Encounter Summary ---
Author Organization [facility] Address [address] [address] Phone Care Team Providers Care Animal Care Technician Name Role Phone Nir Neil MD Unavailable [email or web address] Azalea Degroot MD Primary Care Provider [phone] Encounter Details Date Type Department Care Team (Latest Contact Info) Description 08/23/2024 Transcribe Orders Virtual Department 30 [place] [address] Azalea Degroot MD [address] [place] [address] Breast screening (Primary Dx) Social History Tobacco [...] unspecified documented in this encounter Care Teams Animal Care Technician Relationship Specialty Start Date End Date Azalea Degroot MD [address] [place], [place] [phone] PCP - General Internal Medicine 03/04/18 Nir Neil MD [email or web address] Historical LMR Provider 04/22/17 documented as of this encounter Additional Source Comments The information contained in this document represents components of the legal health record. It is not the complete legal health record.[facility]
--- OUTSIDE RECORDS SUMMARY | 2025-05-11 10:45 | XMS_ITS | Encounter Summary ---
Author Organization [facility] Address [address] [place] [address] Phone Care Team Providers Care Medical Certification Specialist Name Role Phone Nir Neil MD Unavailable [email or web address] Maritza Gonzalez MD Unavailable [phone] Hollie Hood NP Unavailable [phone] Emerita Hsu MD Unavailable Azalea Degroot MD Primary Care Provider [phone] Encounter Details Date Type Department Care Team (Late st Contact Info) Description 02/05/2021 Procedure Pass [facility], [address] [address] Social History Tobacco Use Types Packs/Day Years [...] on filedocumented in this encounter Care Teams Medical Certification Specialist Relationship Specialty Start Date End Date Azalea Degroot MD [address] [place] [address] PCP - General Internal Medicine 03/04/18 Nir Neil MD [email or web address] Historical LMR Provider 04/22/17 Maritza Gonzalez MD [address] [address] [email or web address] Historical LMR Provider 04/22/17 Hollie Hood NP 30 [place] [address] Historical LMR Provider 04/22/17 2 Emerita Hsu MD [address] [place] [address] [address] [email or web address] Historical LMR Provider 04/22/17 2 documented as of this encounter Additional Source Comments The information contained in this document represents components of the legal health record. It is not the complete legal health record.[facility]
--- OUTSIDE RECORDS SUMMARY | 2025-05-11 10:45 | XMS_ITS | Encounter Summary ---
Author Organization [facility] Address [address] [facility] [address] [place] [address] Phone Care Team Providers Care Line Patrolman Name Role Phone Nir Neil MD Unavailable [email or web address] Azalea Degroot MD Primary Care Provider [phone] Encounter Details Date Type Department Care Team (Late st Contact Info) Description 10/02/2021 Procedure Pass [facility], [address] [address] Social History Tobacco Use Types Packs/Day Years [...] on filedocumented in this encounter Care Teams Line Patrolman Relationship Specialty Start Date End Date Azalea Degroot MD [address] [place] [address] PCP - General Internal Medicine 03/04/18 Nir Neil MD [email or web address] Historical LMR Provider 04/22/17 documented as of this encounter Additional Source Comments The information contained in this document represents components of the legal health record. It is not the complete legal health record.[facility]
--- OUTSIDE RECORDS SUMMARY | 2025-05-11 10:45 | XMS_ITS | Encounter Summary ---
Author Organization [facility] Address [address] [place] [address] Phone Care Team Providers Care Dolly Driver Name Role Phone Nir Neil MD Unavailable [email or web address] Maritza Gonzalez MD Unavailable [phone] Hollie Hood MINING CAPTAIN Unavailable [phone] Emerita Hsu MD Unavailable Azalea Degroot MD Primary Care Provider [phone] Encounter Details Date Type Department Care Team (Latest Contact Info) Description 09/14/2019 Ancillary Orders [facility] [address] [place] [address] Mariam Stephen PA-C [address] [place] [address] Orthopedics & Sports Medicine, [place] [address] [email or web address] Closed displaced supracondylar fracture of distal end [...] encounter documented in this encounter Care Teams Dolly Driver Relationship Specialty Start Date End Date Azalea Degroot MD [address] [place] [address] PCP - General Internal Medicine 03/04/18 Nir Neil MD [email or web address] Historical LMR Provider 04/22/17 Maritza Gonzalez MD [address] [place] [address], 2nd [place] [address] [email or web address] Historical LMR Provider 04/22/17 Hollie Hood NP 30 [place] [address] Historical LMR Provider 04/22/17 2 Emerita Hsu MD [address] [place] [address] [address] [place] [phone] [email or web address] Historical LMR Provider 04/22/17 2 documented as of this encounter Additional Source Comments The information contained in this document represents components of the legal health record. It is not the complete legal health record.[facility]
--- OUTSIDE RECORDS SUMMARY | 2025-05-11 10:45 | XMS_ITS | Encounter Summary ---
Author Organization [facility] Address [address] [place] [address] Phone Care Team Providers Care Population Geneticist Name Role Phone Nir Neil MD Unavailable [email or web address] Azalea Degroot MD Primary Care Provider [phone] Encounter Details Date Type Department Care Team (Latest Contact Info) Description 09/02/2024 Ancillary Orders [facility] Orth[facility]ics & Sports Medicine [address] [place] [address] Gabrielle Preciado MD [address] [place] [address] Orthopedics & Sports Medicine, [facility] [place] [address] [email or web address] Calcific tendinitis of left shoulder (Primary [...] shoulder documented in this encounter Care Teams Population Geneticist Relationship Specialty Start Date End Date Azalea Degroot MD [address] [place] [address] PCP - General Internal Medicine 03/04/18 Nir Neil MD [email or web address] Historical LMR Provider 04/22/17 documented as of this encounter Additional Source Comments The information contained in this document represents components of the legal health record. It is not the complete legal health record.[facility]
--- OUTSIDE RECORDS SUMMARY | 2025-05-11 10:45 | XMS_ITS | Encounter Summary ---
Author Organization [facility] Address [address] [place] [address] Phone Care Team Providers Care Eap Clinician Name Role Phone Nir Neil MD Unavailable [email or web address] Azalea Degroot MD Primary Care Provider [phone] Encounter Details Date Type Department Care Team (Late st Contact Info) Description 08/06/2021 Ancillary Orders [facility] Orthopedics & Sports Medicine [address] [place] [address] Gabrielle Preciado MD [address] [place] [address] Orthopedics & Sports Medicine, [facility] [place] [address] [email or web address] Social History Tobacco Use Types Packs/Day Years [...] on filedocumented in this encounter Care Teams Eap Clinician Relationship Specialty Start Date End Date Azalea Degroot MD [address] [place] [address] PCP - General Internal Medicine 03/04/18 Nir Neil MD [email or web address] Historical LMR Provider 04/22/17 documented as of this encounter Additional Source Comments The information contained in this document represents components of the legal health record. It is not the complete legal health record.[facility]
--- OUTSIDE RECORDS SUMMARY | 2025-05-11 10:45 | XMS_ITS | Encounter Summary ---
Author Organization [facility] Address [address] [facility] [address] [place] [address] Phone Care Team Providers Care Complex Care Nurse Name Role Phone Nir Neil MD Unavailable [email or web address] Maritza Gonzalez MD Unavailable [phone] Hollie Hood CURTAIN MENDER Unavailable [phone] Emerita Hsu MD Unavailable Azalea Degroot MD Primary Care Provider [phone] Encounter Details Date Type Department Care Team (Late st Contact Info) Description 01/25/2019 Ancillary Orders Virtual Department 30 [place] [address] Azalea Degroot MD [address] [place], [place] [phone] Breast screening Social History Tobacco Use Types [...] There are scattered fibroglandular densities. POS - [id number] Narrative 04/20/2019 11:05 AM EDT STUDY: Bilateral [...] There are scattered fibroglandular densities. POS - [id number] Azalea Degroot MD IMG MG EXAMS Final Res ult documented in this encounter Visit Diagnoses Diagnosis Breast screening Breast screening, unspecified Breast screening Breast screening, unspecified documented in this encounter Care Teams Complex Care Nurse Relationship Specialty Start Date End Date Azalea Degroot MD 46 [place] [address] PCP - General Internal Medicine 03/04/18 Nir Neil MD [email or web address] Historical LMR Provider 04/22/17 Maritza Gonzalez MD [address] [address] [email or web address] Historical LMR Provider 04/22/17 Hollie Hood NP [address] [place] [address] Historical LMR Provider 04/22/17 2 Emerita Hsu MD [address] [place] [address] [phone] [email or web address] Historical LMR Provider 04/22/17 2 documented as of this encounter Additional Source Comments The information contained in this document represents components of the legal health record. It is not the complete legal health record.[facility]
--- OUTSIDE RECORDS SUMMARY | 2025-05-11 10:45 | XMS_ITS | Encounter Summary ---
Author Organization [facility] Address [address] [place] [address] Phone Care Team Providers Care Safety Compliance Specialist Name Role Phone Nir Neil MD Unavailable [email or web address] Maritza Gonzalez MD Unavailable [phone] Hollie Hood NP Unavailable [phone] Emerita Hsu MD Unavailable Emerita Hsu MD Primary Care Provider Azalea Degroot MD Primary Care Provider [phone] Encounter Details Date Type Department Care Team (Late st Contact Info) Description 10/17/2017 Ancillary Orders Virtual Department 30 [place] [address] Emerita Hsu MD 38 [facility] [address] [place] [phone] [email or web address] Breast screening Social History [...] unspecified documented in this encounter Care Teams Safety Compliance Specialist Relationship Specialty Start Date End Date Emerita Hsu MD 38 [facility] [address] [phone] [email or web address] PCP - General Family Medicine 05/27/17 03/03/18 Azalea Degroot MD [address] [place] [address] PCP - General Internal Medicine 03/04/18 Nir Neil MD [email or web address] Historical LMR Provider 04/22/17 Maritza Gonzalez MD [address] [place] [address] [email or web address] Historical LMR Provider 04/22/17 Hollie Hood NP [address] [place] [address] Historical LMR Provider 04/22/17 2 Emerita Hsu MD [address] [place] [address] [address] [address] [email or web address] Historical LMR Provider 04/22/17 2 documented as of this encounter Additional Source Comments The information contained in this document represents components of the legal health record. It is not the complete legal health record.[facility]
--- OUTSIDE RECORDS SUMMARY | 2025-05-11 10:45 | XMS_ITS | Encounter Summary ---
Author Organization [facility] Address [address] [place] [address] Phone Care Team Providers Care After School Coordinator Name Role Phone Nir Neil MD Unavailable [email or web address] Maritza Gonzalez MD Unavailable [phone] Hollie Hood NP Unavailable [phone] Emerita Hsu MD Unavailable Azalea Degroot MD Primary Care Provider [phone] Encounter Details Date Type Department Care Team (Late st Contact Info) Description 03/25/2020 Procedure Pass [address] [address] Social History Tobacco Use Types Packs/Day Years [...] on filedocumented in this encounter Care Teams After School Coordinator Relationship Specialty Start Date End Date Azalea Degroot MD 46 [place] [address] PCP - General Internal Medicine 03/04/18 Nir Neil MD [email or web address] Historical LMR Provider 04/22/17 Maritza Gonzalez MD [address] [address] [email or web address] Historical LMR Provider 04/22/17 Hollie Hood NP [address] [place] [address] Historical LMR Provider 04/22/17 2 Emerita Hsu MD [address] [place] [address] [place] [phone] [email or web address] Historical LMR Provider 04/22/17 2 documented as of this encounter Additional Source Comments The information contained in this document represents components of the legal health record. It is not the complete legal health record.[facility]
--- OUTSIDE RECORDS SUMMARY | 2025-05-11 10:45 | XMS_ITS | Encounter Summary ---
Author Organization [facility] Address [address] [place] [address] Phone Care Team Providers Care Scientologist Name Role Phone Nir Neil MD Unavailable [email or web address] Azalea Degroot MD Primary Care Provider [phone] Reason for Referral * MRI/CAT Scan - Closed Specialty Diagnoses / Procedures Referred By Princess calloway Referred To Contact Radiology Diagnoses Right hip pain Procedures MRI Hip (Right) Isabel Rico NP [address] [place] [address] Phone: tel: fax: [email or web address] Referral ID Status Reason Start Date Expiration Date Visits Re quested Visits Authorized [id number] Closed 10/02/2021 10/02/2022 1 1 Encounter Details Date Type Department Care Team (Latest Contact Info) Description 10/02/2021 Transcribe Orders Virtual Department 30 [place] [address] Isabel Rico NP [address] [place] [phone] [email or web address] Right hip pain (Primary Dx) Social History [...] thigh documented in this encounter Care Teams Scientologist Relationship Specialty Start Date End Date Azalea Degroot MD [address] [place], [place] [address] PCP - General Internal Medicine 03/04/18 Nir Neil MD [email or web address] Historical LMR Provider 04/22/17 documented as of this encounter Additional Source Comments The information contained in this document represents components of the legal health record. It is not the complete legal health record.[facility]
--- OUTSIDE RECORDS SUMMARY | 2025-05-11 10:46 | XMS_ITS | Encounter Summary ---
Author Organization [facility] Address [address] [facility] [address] [place] [address] Phone Care Team Providers Care Faucet Polisher Name Role Phone Nir Neil MD Unavailable [email or web address] Maritza Gonzalez MD Unavailable [phone] Hollie Hood PAINTING TECHNICIAN Unavailable [phone] Emerita Hsu MD Unavailable Azalea Degroot MD Primary Care Provider [phone] Encounter Details Date Type Department Care Team (Late st Contact Info) Description 02/28/2020 Ancillary Orders Virtual Department 30 [place] [address] Azalea Degroot MD 46 [place], [place] [phone] Breast screening Social History Tobacco Use Types [...] and compared with multiple prior studies, most wyqeknqp58/15/2019, with utilization of computer-aided detection. The breasts [...] unspecified documented in this encounter Care Teams Faucet Polisher Relationship Specialty Start Date End Date Azalea Degroot MD 46 [place] [address] PCP - General Internal Medicine 03/04/18 Nir Neil MD [email or web address] Historical LMR Provider 04/22/17 Maritza Gonzalez MD 15 [facility], [address] [place] [address] [email or web address] Historical LMR Provider 04/22/17 Hollie Hood NP [address] [place] [address] Historical LMR Provider 04/22/17 2 Emerita Hsu MD [address] [place] [address] [address] [email or web address] Historical LMR Provider 04/22/17 2 documented as of this encounter Additional Source Comments The information contained in this document represents components of the legal health record. It is not the complete legal health record.[facility]
--- OUTSIDE RECORDS SUMMARY | 2025-05-11 10:46 | XMS_ITS | Clinical Summary ---
Author Organization [facility] Address [address] [place] [address] Phone Care Team Providers Care Armed Custom Protection Officer Name Role Phone Nir Neil MD Unavailable [email or web address] Azalea Degroot MD Primary Care Provider [phone] Allergies Active Allergy Reactions Criticality Noted Date [...] capsule by mouth daily. 0 Active omega 6-cwd-vsf-fish oil 1,000 mg (120 mg-180 mg) Cap [...] Refills, Maintenance, 12/27/22 11:23:00 EDT, [facility]/pharmacy #[id number], Partial fill upon patient request if the prescription is for a schedule II opioid drug., 168, c... 3 Active Medication-Free Text CANNABIS GUMMIES, Refills 0, Maintenance, 03/31/23 12:09:00 EDT, Supply 3 Active metoprolol succinate (TOPROL-XL) 25 MG 24 hr tablet Take 25 mg by mouth daily. Active flunisolide 25 mcg (0.025 %) Heber 2 sprays by Each Nare route every [...] Final Atrial Rate 07/30/2018 91 BPM Final MO Interval 07/30/2018 124 ms Final QRS Duration 07/30/2018 90 ms Final QT Interval 07/30/2018 344 ms Final QTC Interval 07/30/2018 423 ms Final P Parchman 07/30/2018 54 degrees Final R Wave Parchman 07/30/2018 57 degrees Final T Wave Parchman 07/30/2018 23 degrees Final WBC 07/30/2018 8.61 [...] lumbar spondylosis. She may use heat, stretches, lhxi-yyx-zprrdal naproxen sodium 440 mg twice daily as [...] Final Atrial Rate 07/30/2018 91 BPM Final MO Interval 07/30/2018 124 ms Final QRS Duration 07/30/2018 90 ms Final QT Interval 07/30/2018 344 ms Final QTC Interval 07/30/2018 423 ms Final P Parchman 07/30/2018 54 degrees Final R Wave Parchman 07/30/2018 57 degrees Final T Wave Parchman 07/30/2018 23 degrees Final WBC 07/30/2018 8.61 [...] 50% of this 28-minute minute visit in tgai-lu-iqed conversation discussing her sacroiliac joint x-ray which [...] evaluation could be done with a shoulder computer operations specialist if she desires and if [...] Final Atrial Rate 07/30/2018 91 BPM Final MO Interval 07/30/2018 124 ms Final QRS Duration 07/30/2018 90 ms Final QT Interval 07/30/2018 344 ms Final QTC Interval 07/30/2018 423 ms Final P Parchman 07/30/2018 54 degrees Final R Wave Parchman 07/30/2018 57 degrees Final T Wave Parchman 07/30/2018 23 degrees Final WBC 07/30/2018 8.61 [...] hospital encounter of 04/14/19 (from the past 83220 hour(s)) DXA Monitoring Narrative CLINICAL HISTORY: + [...] hospital encounter of 04/14/19 (from the past 11849 hour(s)) DXA Monitoring Narrative CLINICAL HISTORY: + [...] Final Atrial Rate 07/30/2018 91 BPM Final MO Interval 07/30/2018 124 ms Final QRS Duration 07/30/2018 90 ms Final QT Interval 07/30/2018 344 ms Final QTC Interval 07/30/2018 423 ms Final P Parchman 07/30/2018 54 degrees Final R Wave Parchman 07/30/2018 57 degrees Final T Wave Parchman 07/30/2018 23 degrees Final WBC 07/30/2018 8.61 [...] hospital encounter of 04/14/19 (from the past 55516 hour(s)) DXA Monitoring Narrative CLINICAL HISTORY: + [...] hospital encounter of 04/14/19 (from the past 88460 hour(s)) DXA Monitoring Narrative CLINICAL HISTORY: + [...] hospital encounter of 04/14/19 (from the past 74003 hour(s)) DXA Monitoring Narrative CLINICAL HISTORY: + [...] Description 03/30/2025 1:10 PM EDT Office Visit [facility] at [address] [address] Elisha Coulter CNP Foreign body of right lower leg, subsequent encounter (Primary Dx) 03/25/2025 2:00 PM EDT Office Visit [facility] at [address] [address] Samira Estes CNP Bitten or stung by nonvenomous [...] this topic Medical Devices Implanted Type Area Boy'S Adviser Device Identifier Shelf Expiration Date Model / [...] Special Requests None 03/30/2025 1:29 PM EDT [facility] GRAM STAIN NO CELLS OR ORGANISMS 03/31/2025 10:33 AM EDT [facility] Wound Culture/Smear NO GROWTH 48HRS 04/01/2025 1:47 PM EDT [facility] Other (Skin) 03/30/2025 1:29 PM EDT 03/30/2025 4:56 PM EDT Comment:S P REMOVAL PIECE ST IFF GRASS SCANT AMT PUS us Elisha Coulter CNP LAB MICROBIOLOGY CULTURE OR DERABLES Final Result [facility] [address] [place] [address] * FOREIGN BODY REMOVAL (03/30/2025 1:25 PM [...] bone mineral density was calculated at 0.598 gm/zh0zmsq a T- score of -2.3 falling within [...] Maintenance Insurance MEDICARE PART A & B [employer] MEDICARE SUPPLEMENT MEDICARE PART A & B [facility] EXTENSION MEDICARE SUPPLEMENT MEDICARE PART A & B [employer] MEDICARE SUPPLEMENT MEDICARE PART A & B [employer] MEDICARE SUPPLEMENT MEDICARE PART A & B [facility] MEDICARE SUPPLEMENT MEDICARE PART A & B [employer] EXTENSION MEDICARE SUPPLEMENT [facility] & [facility] EXTENSION MEDICARE SUPPLEMENT MEDICARE PART A & B Member Subscriber Plan / Payer ( fective 2017-) Name:Lea Rodríguez Member ID:[id number] Relation to Subscriber:Self Name:Lea Rodríguez Subscriber ID:[id number] Payer ID:[id number] Group ID:Not on file Type:Medicare Address: [employer] [address] [place] [address] [place] [address] EXTENSION MEDICARE SUPPLEMENT MEDICARE PART A & B [facility] EXTENSION MEDICARE SUPPLEMENT Care Teams Armed Custom Protection Officer Relationship Specialty Start Date End Date Azalea Degroot MD [address] [place] [phone] PCP - General Internal Medicine 03/04/18 Nir Neil MD [email or web address] Historical LMR Provider 04/22/17 Additional Source Comments The information contained in this document represents components of the legal health record. It is not the complete legal health record.[facility]
== END 2025-05-11 09:36 | disposition home or self-care (01) ==
LOC: HO.HMGAL 09:36
PROVIDERS: PCP Internal Medicine; Visit Provider Registered Nurse Emergency
DX: J30.89 Other allergic rhinitis (principal)
CPT/HCPCS: 95117; 95165

== ENCOUNTER 2025-05-18 10:29 | Outpatient (AMB) | payer MEDICARE, OTHER, SELFPAY | END 2025-05-18 10:30 | disposition home or self-care (01) | LOC: HO.HMGAL 10:29 | PROVIDERS: PCP Internal Medicine; Visit Provider Registered Nurse Emergency | DX: J30.89 Other allergic rhinitis (principal) | CPT/HCPCS: 95117; 95165 ==

== ENCOUNTER 2025-05-25 10:14 | Outpatient (AMB) | payer MEDICARE, OTHER, SELFPAY ==
--- OUTSIDE RECORDS SUMMARY | 2025-05-25 19:32 | XMS_ITS | Encounter Summary ---
Author Organization [facility] Address [address] [facility] [address] [place] [address] Phone Care Team Providers Care Oracle Data Warehouse Developer Name Role Phone Nir Neil MD Unavailable [email or web address] Maritza Gonzalez MD Unavailable [phone] Hollie Hood INSTRUMENT CHECKER Unavailable [phone] Emerita Hsu MD Unavailable Azalea Degroot MD Primary Care Provider [phone] Encounter Details Date Type Department Care Team (Late st Contact Info) Description 02/05/2021 Ancillary Orders Virtual Department 30 [place] [address] Azalea Degroot MD [address] [place], [place] [phone] Breast screening Social History Tobacco Use Types [...] unspecified documented in this encounter Care Teams Oracle Data Warehouse Developer Relationship Specialty Start Date End Date Azaela Degroot MD [address] [place] [address] PCP - General Internal Medicine 03/04/18 Nir Neil MD [email or web address] Historical LMR Provider 04/22/17 Maritza Gonzalez MD [address] [facility], 2nd [place] [address] [email or web address] Historical LMR Provider 04/22/17 Hollie Hood NP [address] [place] [address] Historical LMR Provider 04/22/17 2 Emerita Hsu MD [address] [place] [address] [place] [phone] [email or web address] Historical LMR Provider 04/22/17 2 documented as of this encounter Additional Source Comments The information contained in this document represents components of the legal health record. It is not the complete legal health record.[facility]
--- OUTSIDE RECORDS SUMMARY | 2025-05-25 19:32 | XMS_ITS | Encounter Summary ---
Author Organization [facility] Address [address] [place] [address] Phone Care Team Providers Care Fur Blower Operator Name Role Phone Nir Neil MD Unavailable [email or web address] Maritza Gonzalez MD Unavailable [phone] Hollie Hood FOOD SERVICE EMPLOYEE Unavailable [phone] Emerita Hsu MD Unavailable Azalea Degroot MD Primary Care Provider [phone] Encounter Details Date Type Department Care Team (Late st Contact Info) Description 09/26/2020 Procedure Pass [facility], [address] [address] Social History Tobacco Use Types Packs/Day Years [...] on filedocumented in this encounter Care Teams Fur Blower Operator Relationship Specialty Start Date End Date Azalea Degroot MD [address] [place] [address] PCP - General Internal Medicine 03/04/18 Nir Neil MD [email or web address] Historical LMR Provider 04/22/17 Maritza Gonzalez MD [address] [address] [email or web address] Historical LMR Provider 04/22/17 Hollie Hood NP [address] [place] [address] Historical LMR Provider 04/22/17 2 Emerita Hsu MD [address] [place] [address] [phone] [email or web address] Historical LMR Provider 04/22/17 2 documented as of this encounter Additional Source Comments The information contained in this document represents components of the legal health record. It is not the complete legal health record.[facility]
--- OUTSIDE RECORDS SUMMARY | 2025-05-25 19:32 | XMS_ITS | Encounter Summary ---
Author Organization [facility] Address [address] [facility] [address] [place] [address] Phone Care Team Providers Care Microbial Specialist Name Role Phone Nir Neil MD Unavailable [email or web address] Azalea Degroot MD Primary Care Provider [phone] Encounter Details Date Type Department Care Team (Late st Contact Info) Description 04/15/2023 Procedure Pass [facility], Ct Scan - [facility] [address] [place] [address] Social History Tobacco Use Types Packs/Day Years [...] 10:24 AM EDT Mirtha Burks RN * Gates Suicide Severity Rating Scale (Screener/Recent Self-Report) Question [...] on filedocumented in this encounter Care Teams Microbial Specialist Relationship Specialty Start Date End Date Azalea Degroot MD [address] [place] [address] PCP - General Internal Medicine 03/04/18 Nir Neil MD [email or web address] Historical LMR Provider 04/22/17 documented as of this encounter Additional Source Comments The information contained in this document represents components of the legal health record. It is not the complete legal health record.[facility]
--- OUTSIDE RECORDS SUMMARY | 2025-05-25 19:33 | XMS_ITS | Encounter Summary ---
Author Organization [facility] Address [address] [place] [address] Phone Care Team Providers Care Clarification Operator Name Role Phone Nir Neil MD Unavailable [email or web address] Maritza Gonzalez MD Unavailable [phone] Hollie Hood NP Unavailable [phone] Emerita Hsu MD Unavailable Azalea Degroot MD Primary Care Provider [phone] Encounter Details Date Type Department Care Team (Late st Contact Info) Description 03/25/2020 Procedure Pass [address] [address] Social History Tobacco Use Types Packs/Day Years [...] on filedocumented in this encounter Care Teams Clarification Operator Relationship Specialty Start Date End Date Azalea Degroot MD [address] [place] [address] PCP - General Internal Medicine 03/04/18 Nir Neil MD [email or web address] Historical LMR Provider 04/22/17 Maritza Gonzalez MD [address] [address] [email or web address] Historical LMR Provider 04/22/17 Hollie Hood NP [address] [place] [address] Historical LMR Provider 04/22/17 2 Emerita Hsu MD [address] [place] [address] [place] [phone] [email or web address] Historical LMR Provider 04/22/17 2 documented as of this encounter Additional Source Comments The information contained in this document represents components of the legal health record. It is not the complete legal health record.[facility]
--- OUTSIDE RECORDS SUMMARY | 2025-05-25 19:33 | XMS_ITS | Encounter Summary ---
Author Organization [facility] Address [address] [place] [address] Phone Care Team Providers Care Dementia Program Director Name Role Phone Nir Neil MD Unavailable [email or web address] Azalea Degroot MD Primary Care Provider [phone] Encounter Details Date Type Department Care Team (Late st Contact Info) Description 08/06/2021 Ancillary Orders [facility] Orth[facility]ics & Sports Medicine [address] [place] [address] Gabrielle Preciado MD [address] [place] [address] Orthopedics & Sports Medicine, [facility] [place] [address] [email or web address] Social History Tobacco Use Types Packs/Day Years [...] on filedocumented in this encounter Care Teams Dementia Program Director Relationship Specialty Start Date End Date Azalea Degroot MD [address] [place] [address] PCP - General Internal Medicine 03/04/18 Nir Neil MD [email or web address] Historical LMR Provider 04/22/17 documented as of this encounter Additional Source Comments The information contained in this document represents components of the legal health record. It is not the complete legal health record.[facility]
--- OUTSIDE RECORDS SUMMARY | 2025-05-25 19:33 | XMS_ITS | Encounter Summary ---
Author Organization [facility] Address [address] [place] [address] Phone Care Team Providers Care Fitness Teacher Name Role Phone Nir Neil MD Unavailable [email or web address] Azalea Degroot MD Primary Care Provider [phone] Encounter Details Date Type Department Care Team (Latest Contact Info) Description 09/02/2024 Ancillary Orders [facility] Orthopedics & Sports Medicine [address] [place] [address] Gabrielle Preciado MD [address] [place] [address] Orthopedics & Sports Medicine, [facility] [place] [address] [email or web address] Calcific tendinitis of left shoulder (Primary [...] shoulder documented in this encounter Care Teams Fitness Teacher Relationship Specialty Start Date End Date Azalea Degroot MD [address] [place] [address] PCP - General Internal Medicine 03/04/18 Nir Neil MD [email or web address] Historical LMR Provider 04/22/17 documented as of this encounter Additional Source Comments The information contained in this document represents components of the legal health record. It is not the complete legal health record.[facility]
--- OUTSIDE RECORDS SUMMARY | 2025-05-25 19:33 | XMS_ITS | Encounter Summary ---
Author Organization [facility] Address [address] [place] [address] Phone Care Team Providers Care Screener And Blender Operator Name Role Phone Nir Neil MD Unavailable [email or web address] Maritza Gonzalez MD Unavailable [phone] Hollie Hood LEAD SOFTWARE ENGINEER Unavailable [phone] Emerita Hsu MD Unavailable Azalea Degroot MD Primary Care Provider [phone] Encounter Details Date Type Department Care Team (Late st Contact Info) Description 02/05/2021 Procedure Pass [facility], [address] [address] Social History Tobacco Use Types Packs/Day Years [...] on filedocumented in this encounter Care Teams Screener And Blender Operator Relationship Specialty Start Date End Date Azalea Degroot MD [address] [place] [address] PCP - General Internal Medicine 03/04/18 Nir Neil MD [email or web address] Historical LMR Provider 04/22/17 Maritza Gonzalez MD [address] [address] [email or web address] Historical LMR Provider 04/22/17 Hollie Hood NP 30 [place] [address] Historical LMR Provider 04/22/17 2 Emerita Hsu MD [address] [place] [address] [phone] [email or web address] Historical LMR Provider 04/22/17 2 documented as of this encounter Additional Source Comments The information contained in this document represents components of the legal health record. It is not the complete legal health record.[facility]
--- OUTSIDE RECORDS SUMMARY | 2025-05-25 19:33 | XMS_ITS | Encounter Summary ---
Author Organization [facility] Address [address] [place] [address] Phone Care Team Providers Care Change Coordinator Name Role Phone Nir Neil MD Unavailable [email or web address] Maritza Gonzalez MD Unavailable [phone] Hollie Hood NP Unavailable [phone] Emerita Hsu MD Unavailable Emerita Hsu MD Primary Care Provider [phone] Azalea Degroot MD Primary Care Provider [phone] Encounter Details Date Type Department Care Team (Late st Contact Info) Description 10/17/2017 Ancillary Orders Virtual Department 30 [place] [address] Emerita Hsu MD [address] [facility] [address] [place] [phone] [email or web address] Breast screening Social History [...] unspecified documented in this encounter Care Teams Change Coordinator Relationship Specialty Start Date End Date Emerita Hsu MD 38 [facility] [address] [phone] [email or web address] PCP - General Family Medicine 05/27/17 03/03/18 Azalea Degroot MD [address] [place] [address] PCP - General Internal Medicine 03/04/18 Nir Neil MD [email or web address] Historical LMR Provider 04/22/17 Maritza Gonzalez MD [address] [place] [address] [email or web address] Historical LMR Provider 04/22/17 Hollie Hood NP [address] [place] [address] Historical LMR Provider 04/22/17 2 Emerita Hsu MD [address] [place] [address] [address] [phone] [email or web address] Historical LMR Provider 04/22/17 2 documented as of this encounter Additional Source Comments The information contained in this document represents components of the legal health record. It is not the complete legal health record.[facility]
--- OUTSIDE RECORDS SUMMARY | 2025-05-25 19:33 | XMS_ITS | Encounter Summary ---
Author Organization [facility] Address [address] [place] [address] [place] [address] Phone Care Team Providers Care Mule Developer Name Role Phone Nir Neil MD Unavailable [email or web address] Azalea Degroot MD Primary Care Provider [phone] Encounter Details Date Type Department Care Team (Late st Contact Info) Description 11/05/2023 Procedure Pass [facility] Admitting Dept Virtual Department 30 [place] [address] Social History Tobacco Use Types Packs/Day Years [...] on filedocumented in this encounter Care Teams Mule Developer Relationship Specialty Start Date End Date Azalea Degroot MD [address] [place] [address] PCP - General Internal Medicine 03/04/18 Nir Neil MD [email or web address] Historical LMR Provider 04/22/17 documented as of this encounter Additional Source Comments The information contained in this document represents components of the legal health record. It is not the complete legal health record.[facility]
--- OUTSIDE RECORDS SUMMARY | 2025-05-25 19:33 | XMS_ITS | Encounter Summary ---
Author Organization [facility] Address [address] [place] [address] [place] [address] Phone Care Team Providers Care Refrigeration Plant Cork Insulator Name Role Phone Nir Neil MD Unavailable [email or web address] Azalea Degroot MD Primary Care Provider [phone] Encounter Details Date Type Department Care Team (Late st Contact Info) Description 09/11/2023 Procedure Pass [facility], [facility] [address] [place] [address] Social History Tobacco Use Types Packs/Day Years [...] on filedocumented in this encounter Care Teams Refrigeration Plant Cork Insulator Relationship Specialty Start Date End Date Azalea Degroot MD [address] [place] [address] PCP - General Internal Medicine 03/04/18 Nir Neil MD [email or web address] Historical LMR Provider 04/22/17 documented as of this encounter Additional Source Comments The information contained in this document represents components of the legal health record. It is not the complete legal health record.[facility]
--- OUTSIDE RECORDS SUMMARY | 2025-05-25 19:33 | XMS_ITS | Encounter Summary ---
Author Organization [facility] Address [address] [place] [address] Phone Care Team Providers Care Police Worker Name Role Phone Nir Neil MD Unavailable [email or web address] Azalea Degroot MD Primary Care Provider [phone] Encounter Details Date Type Department Care Team (Latest Contact Info) Description 08/06/2021 Ancillary Orders [address] [address] Gabrielle Preciado MD [address] [place] [address] Orthopedics & Sports Medicine, [place] [address] [email or web address] Osteoarthritis of right hip, unspecified osteoarthritis [...] type documented in this encounter Care Teams Police Worker Relationship Specialty Start Date End Date Azalea Degroot MD [address] [place] [address] PCP - General Internal Medicine 03/04/18 Nir Neil MD [email or web address] Historical LMR Provider 04/22/17 documented as of this encounter Additional Source Comments The information contained in this document represents components of the legal health record. It is not the complete legal health record.[facility]
--- OUTSIDE RECORDS SUMMARY | 2025-05-25 19:33 | XMS_ITS | Encounter Summary ---
Author Organization [facility] Address [address] [place] [address] Phone Care Team Providers Care Crop Or Grain Farmworker Name Role Phone Nir Neil MD Unavailable [email or web address] Azalea Degroot MD Primary Care Provider [phone] Reason for Referral * MRI/CAT Scan - Closed Specialty Diagnoses / Procedures Referred By Princess calloway Referred To Contact Radiology Diagnoses Right hip pain Procedures MRI Hip (Right) Isabel Rico NP [address] [place] [address] Phone: tel: fax: [email or web address] Referral ID Status Reason Start Date Expiration Date Visits Re quested Visits Authorized [id number] Closed 10/02/2021 10/02/2022 1 1 Encounter Details Date Type Department Care Team (Latest Contact Info) Description 10/02/2021 Transcribe Orders Virtual Department 30 [place] [address] Isabel Rico NP [address] [place] [phone] [email or web address] Right hip pain (Primary Dx) Social History [...] thigh documented in this encounter Care Teams Crop Or Grain Farmworker Relationship Specialty Start Date End Date Azalea Degroot MD [address] [place], [place] [address] PCP - General Internal Medicine 03/04/18 Nir Neil MD [email or web address] Historical LMR Provider 04/22/17 documented as of this encounter Additional Source Comments The information contained in this document represents components of the legal health record. It is not the complete legal health record.[facility]
--- OUTSIDE RECORDS SUMMARY | 2025-05-25 19:33 | XMS_ITS | Encounter Summary ---
Author Organization [facility] Address [address] [place] [address] [place] [address] Phone Care Team Providers Care Talent Scout Name Role Phone Nir Neil MD Unavailable [email or web address] Azalea Degroot MD Primary Care Provider [phone] Encounter Details Date Type Department Care Team (Late st Contact Info) Description 08/23/2024 Procedure Pass [address] [place] [address] Social History Tobacco Use Types Packs/Day Years [...] on filedocumented in this encounter Care Teams Talent Scout Relationship Specialty Start Date End Date Azalea Degroot MD [address] [place] [address] PCP - General Internal Medicine 03/04/18 Nir Neil MD [email or web address] Historical LMR Provider 04/22/17 documented as of this encounter Additional Source Comments The information contained in this document represents components of the legal health record. It is not the complete legal health record.[facility]
--- OUTSIDE RECORDS SUMMARY | 2025-05-25 19:33 | XMS_ITS | Encounter Summary ---
Author Organization [facility] Address [address] [address] Phone Care Team Providers Care Letterpress Printing Machinist Name Role Phone Nir Neil MD Unavailable [email or web address] Azalea Degroot MD Primary Care Provider [phone] Encounter Details Date Type Department Care Team (Latest Contact Info) Description 08/23/2024 Transcribe Orders Virtual Department 30 [place] [address] Azalea Degroot MD [address] [place] [address] Breast screening (Primary Dx) Social History Tobacco [...] unspecified documented in this encounter Care Teams Letterpress Printing Machinist Relationship Specialty Start Date End Date Azalea Degroot MD [address] [place], [place] [address] PCP - General Internal Medicine 03/04/18 Nir Neil MD [email or web address] Historical LMR Provider 04/22/17 documented as of this encounter Additional Source Comments The information contained in this document represents components of the legal health record. It is not the complete legal health record.[facility]
--- OUTSIDE RECORDS SUMMARY | 2025-05-25 19:34 | XMS_ITS | Encounter Summary ---
Author Organization [facility] Address [address] [facility] [address] [place] [address] Phone Care Team Providers Care Assembler Corncob Pipes Name Role Phone Nir Neil MD Unavailable [email or web address] Maritza Gonzalez MD Unavailable [phone] Hollie Hood ROOMS DIRECTOR Unavailable [phone] Emerita Hsu MD Unavailable Azalea Degroot MD Primary Care Provider [phone] Encounter Details Date Type Department Care Team (Late st Contact Info) Description 01/25/2019 Ancillary Orders Virtual Department 30 [place] [address] Azalea Degroot MD [address] [place], [place] [id number] Breast screening Social History Tobacco Use Types [...] There are scattered fibroglandular densities. POS - [id number] Narrative 04/20/2019 11:05 AM EDT STUDY: Bilateral [...] There are scattered fibroglandular densities. POS - [id number] Azalea Degroot MD IMG MG EXAMS Final Res ult documented in this encounter Visit Diagnoses Diagnosis Breast screening Breast screening, unspecified Breast screening Breast screening, unspecified documented in this encounter Care Teams Assembler Corncob Pipes Relationship Specialty Start Date End Date Azalea Degroot MD [address] [place] [address] PCP - General Internal Medicine 03/04/18 Nir Neil MD [email or web address] Historical LMR Provider 04/22/17 Maritza Gonzalez MD [address] [address] [email or web address] Historical LMR Provider 04/22/17 Hollie Hood NP [address] [place] [address] Historical LMR Provider 04/22/17 2 Emerita Hsu MD [address] [place] [address] [address] [email or web address] Historical LMR Provider 04/22/17 2 documented as of this encounter Additional Source Comments The information contained in this document represents components of the legal health record. It is not the complete legal health record.[facility]
--- OUTSIDE RECORDS SUMMARY | 2025-05-25 19:34 | XMS_ITS | Encounter Summary ---
Author Organization [facility] Address [address] [facility] [address] [place] [address] Phone Care Team Providers Care Manager Supplier Name Role Phone Nir Neil MD Unavailable [email or web address] Azalea Degroot MD Primary Care Provider [phone] Encounter Details Date Type Department Care Team (Late st Contact Info) Description 10/02/2021 Procedure Pass [facility], [address] [address] Social History Tobacco Use Types Packs/Day Years [...] filedocumented in this encounter Care Teams Manager Supplier Relationship Specialty Start Date End Date Azalea Degroot MD [address] [place] [address] PCP - General Internal Medicine 03/04/18 Nir Neil MD [email or web address] Historical LMR Provider 04/22/17 documented as of this encounter Additional Source Comments The information contained in this document represents components of the legal health record. It is not the complete legal health record.[facility]
--- OUTSIDE RECORDS SUMMARY | 2025-05-25 19:34 | XMS_ITS | Clinical Summary ---
Author Organization [facility] Address [address] [place] [phone] Phone Care Team Providers Care Training And Quality Manager Name Role Phone Nir Neil MD Unavailable [email or web address] Azalea Degroot MD Primary Care Provider [phone] Allergies Active Allergy Reactions Criticality Noted Date [...] capsule by mouth daily. 0 Active omega 0-ddg-xux-fish oil 1,000 mg (120 mg-180 mg) Cap [...] Gm, 1 Refills, Maintenance, 12/27/22 11:23:00 EDT, [facility]/pharmacy #[id number], Partial fill upon patient request if the prescription is for a schedule II opioid drug., 168, c... 3 Active Medication-Free Text CANNABIS GUMMIES, Refills 0, Maintenance, 03/31/23 12:09:00 EDT, Supply 3 Active metoprolol succinate (TOPROL-XL) 25 MG 24 hr tablet Take 25 mg by mouth daily. Active flunisolide 25 mcg (0.025 %) Gordon 2 sprays by Each Nare route every [...] Final Atrial Rate 07/30/2018 91 BPM Final VA Interval 07/30/2018 124 ms Final QRS Duration 07/30/2018 90 ms Final QT Interval 07/30/2018 344 ms Final QTC Interval 07/30/2018 423 ms Final P [place] 07/30/2018 54 degrees Final R Wave [place] 07/30/2018 57 degrees Final T Wave [place] 07/30/2018 23 degrees Final WBC 07/30/2018 8.61 [...] lumbar spondylosis. She may use heat, stretches, tjgd-lsp-evrykgg naproxen sodium 440 mg twice daily as [...] Final Atrial Rate 07/30/2018 91 BPM Final VA Interval 07/30/2018 124 ms Final QRS Duration 07/30/2018 90 ms Final QT Interval 07/30/2018 344 ms Final QTC Interval 07/30/2018 423 ms Final P [place] 07/30/2018 54 degrees Final R Wave [place] 07/30/2018 57 degrees Final T Wave [place] 07/30/2018 23 degrees Final WBC 07/30/2018 8.61 [...] 50% of this 28-minute minute visit in [id number] conversation discussing her sacroiliac joint x-ray which [...] evaluation could be done with a shoulder digital publishing specialist if she desires and if the [...] Final Atrial Rate 07/30/2018 91 BPM Final VA Interval 07/30/2018 124 ms Final QRS Duration 07/30/2018 90 ms Final QT Interval 07/30/2018 344 ms Final QTC Interval 07/30/2018 423 ms Final P [place] 07/30/2018 54 degrees Final R Wave [place] 07/30/2018 57 degrees Final T Wave [place] 07/30/2018 23 degrees Final WBC 07/30/2018 8.61 [...] hospital encounter of 04/14/19 (from the past 94348 hour(s)) DXA Monitoring Narrative CLINICAL HISTORY: + [...] hospital encounter of 04/14/19 (from the past 09379 hour(s)) DXA Monitoring Narrative CLINICAL HISTORY: + [...] Final Atrial Rate 07/30/2018 91 BPM Final VA Interval 07/30/2018 124 ms Final QRS Duration 07/30/2018 90 ms Final QT Interval 07/30/2018 344 ms Final QTC Interval 07/30/2018 423 ms Final P [place] 07/30/2018 54 degrees Final R Wave [place] 07/30/2018 57 degrees Final T Wave [place] 07/30/2018 23 degrees Final WBC 07/30/2018 8.61 [...] hospital encounter of 04/14/19 (from the past 00787 hour(s)) DXA Monitoring Narrative CLINICAL HISTORY: + [...] hospital encounter of 04/14/19 (from the past 05354 hour(s)) DXA Monitoring Narrative CLINICAL HISTORY: + [...] hospital encounter of 04/14/19 (from the past 72984 hour(s)) DXA Monitoring Narrative CLINICAL HISTORY: + [...] Description 03/30/2025 1:10 PM EDT Office Visit [facility] at [address] [address] Elisha Coulter CNP Foreign body of right lower leg, subsequent encounter (Primary Dx) 03/25/2025 2:00 PM EDT Office Visit [facility] at [address] [address] Samira Estes CNP Bitten or stung by [...] this topic Medical Devices Implanted Type Area Security Incident Response Engineer Device Identifier Shelf Expiration Date Model / [...] Special Requests None 03/30/2025 1:29 PM EDT [facility] GRAM STAIN NO CELLS OR ORGANISMS 03/31/2025 10:33 AM EDT [facility] Wound Culture/Smear NO GROWTH 48HRS 04/01/2025 1:47 PM EDT [facility] Other (Skin) 03/30/2025 1:29 PM EDT 03/30/2025 4:56 PM EDT Comment:S P REMOVAL PIECE ST IFF GRASS SCANT AMT PUS us Elisha Coulter CNP LAB MICROBIOLOGY CULTURE OR DERABLES Final Result [facility] [address] [place] [address] * FOREIGN BODY REMOVAL (03/30/2025 1:25 PM [...] bone mineral density was calculated at 0.598 gm/vn1iyhb a T- score of -2.3 falling within [...] MEDICARE SUPPLEMENT MEDICARE PART A & B [facility] [employer] MEDICARE SUPPLEMENT MEDICARE PART A & B [employer] MEDICARE SUPPLEMENT MEDICARE PART A & B [employer] MEDICARE SUPPLEMENT MEDICARE PART A & B [facility] MEDICARE SUPPLEMENT MEDICARE PART A & B [employer] EXTENSION MEDICARE SUPPLEMENT MEDICARE PART A & B [facility]ION MEDICARE SUPPLEMENT MEDICARE PART A & B Member Subscriber Plan / Payer ( fective 2017-) Name:Lea Rodríguez Member ID:[id number] Relation to Subscriber:Self Name:Lea Rodríguez Subscriber ID:[id number] Payer ID:[id number] Group ID:Not on file Type:Medicare Address: [employer] [address] [place] [id number] [place] [address] EXTENSION MEDICARE SUPPLEMENT MEDICARE PART A & B [facility] [employer] MEDICARE SUPPLEMENT Care Teams Training And Quality Manager Relationship Specialty Start Date End Date Azalea Degroot MD [address] [place] [address] [phone] PCP - General Internal Medicine 03/04/18 Nir Neil MD [email or web address] Historical LMR Provider 04/22/17 Additional Source Comments The information contained in this document represents components of the legal health record. It is not the complete legal health record.[facility]
--- OUTSIDE RECORDS SUMMARY | 2025-05-25 19:34 | XMS_ITS | Encounter Summary ---
Author Organization [facility] Address [address] [facility] [address] [place] [phone] Phone Care Team Providers Care Semi Truck Driver Name Role Phone Nir Neil MD Unavailable [email or web address] Maritza Gonzalez MD Unavailable [phone] Hollie Hood PATIENT APPOINTMENT COORDINATOR Unavailable [phone] Emerita Hsu MD Unavailable Azalea Dergoot MD Primary Care Provider [phone] Encounter Details Date Type Department Care Team (Late st Contact Info) Description 02/28/2020 Ancillary Orders Virtual Department [address] [place] [address] Azalea Degroot MD [address] [place], [place] [phone] Breast screening Social History Tobacco Use Types [...] and compared with multiple prior studies, most juvgdwmr21/15/2019, with utilization of computer-aided detection. The breasts [...] unspecified documented in this encounter Care Teams Semi Truck Driver Relationship Specialty Start Date End Date Azalea Degroot MD [address] [place] [address] PCP - General Internal Medicine 03/04/18 Nir Neil MD [email or web address] Historical LMR Provider 04/22/17 Maritza Gonzalez MD [address] [facility], [address] [place] [address] [email or web address] Historical LMR Provider 04/22/17 Hollie Hood NP [address] [place] [id number] Historical LMR Provider 04/22/17 2 Emerita Hsu MD [address] [place] [address] [phone] [email or web address] Historical LMR Provider 04/22/17 2 documented as of this encounter Additional Source Comments The information contained in this document represents components of the legal health record. It is not the complete legal health record.[facility]
== END 2025-05-25 10:14 | disposition home or self-care (01) ==
LOC: HO.HMGAL 10:14
PROVIDERS: PCP Internal Medicine; Visit Provider Registered Nurse Emergency
DX: J30.89 Other allergic rhinitis (principal)
CPT/HCPCS: 95117; 95165

== ENCOUNTER 2025-06-13 10:37 | Outpatient (AMB) | payer MEDICARE, OTHER, SELFPAY | END 2025-06-13 10:37 | disposition home or self-care (01) | LOC: HO.HMGAL 10:37 | PROVIDERS: PCP Internal Medicine; Visit Provider Registered Nurse Emergency | DX: J30.89 Other allergic rhinitis (principal) | CPT/HCPCS: 95117; 95165 ==